=== PATIENT | male | born 1975 | race African-American/Black ===

== ENCOUNTER 2020-06-01 15:35 | Outpatient (REF) | payer OTHER, SELFPAY | END 2020-06-01 15:36 | disposition home or self-care (01) | LOC: HO.LAB 15:35 | PROVIDERS: Visit Provider Internal Medicine | DX: Z20.822 Contact with and (suspected) exposure to COVID-19 (principal) | CPT/HCPCS: 36415; C9803; U0003 ==

== ENCOUNTER 2021-11-23 15:36 | Outpatient (REF) | payer MEDICAID, SELFPAY ==
--- NOTE | ~2021-11-23 | XR_ITS ---
EXAMINATION: XR HAND, RIGHT CLINICAL INFORMATION: Pain. Trauma 2 weeks ago. COMPARISON: None TECHNIQUE: PA, lateral, and oblique views of the right hand. FINDINGS: Bone alignment is normal. No acute fracture or dislocation is seen. There is evidence of old trauma to the proximal phalanx of the second finger. Joint spaces are normal. Soft tissues are normal. XR/XR hand RT min 3V IMPRESSION: No acute fracture or dislocation. Old trauma to the proximal phalanx of the second finger.
== END 2021-11-23 15:37 | disposition home or self-care (01) ==
LOC: HO.XRAY 15:36
PROVIDERS: Visit Provider Dentist Pediatric Dentistry
DX: M79.641 Pain in right hand (principal)
CPT/HCPCS: 73130

== ENCOUNTER 2022-02-25 11:34 | Outpatient (REF) | payer MEDICAID, SELFPAY ==
[2022-03-01 14:49] LABS: H Pylori Breath Test Negative (Negative)
== END 2022-02-25 11:35 | disposition home or self-care (01) ==
LOC: HO.LNP 11:34
PROVIDERS: Visit Provider Nurse Practitioner Family
DX: K62.5 Hemorrhage of anus and rectum (principal)
CPT/HCPCS: 83013

== ENCOUNTER 2022-02-25 11:55 | Outpatient (REF) | payer MEDICAID, SELFPAY ==
[2022-02-25 13:00] LABS: Hematocrit 48.2 % (42.0-52.0); Hemoglobin 16.3 g/dl (14.0-18.0); Mean Corpuscular HGB Conc 33.8 g/dl (31.0-36.0); Mean Corpuscular Volume 91.8 fL (80.0-98.0); Mean Platelet Volume 11.5 fL (9.4-12.4); Platelet Count 222 X10*3/uL (160-400); Red Blood Count 5.25 X10*6/uL (4.60-5.80); White Blood Count 7.9 X10*3/uL (4.8-10.8)
[2022-02-25 13:25] LABS: Alanine Aminotransferase 13 U/L (0-40); Albumin Level 4.9 g/dL (3.5-5.0); Alkaline Phosphatase 60 U/L (39-117); Anion Gap 15 (12-20); Aspartate Amino Transferase 17 U/L (5-37); Bilirubin Total 0.7 mg/dL (0.0-1.0); Blood Urea Nitrogen 9 mg/dL (9-16); Calcium 10.2 mg/dL (8.4-10.2); Carbon Dioxide 27 mmol/L (22-29); Chloride 101 mmol/L (96-108); Estimated Glomerular Filt Rate > 60; Glucose Random 76 mg/dL (60-115); Lipase 31 U/L (8-78); Potassium 4.9 mmol/L (3.3-5.1); Sodium 138 mmol/L (135-145); Total Protein 7.8 g/dL (6.5-8.0)
[2022-02-25 13:34] LABS: TSH reflex Free T4 1.35 uIU/mL (0.32-4.0)
[2022-02-25 14:37] LABS: Folate 16.9 ng/mL (> or = 4.0); Vitamin B12 488 pg/mL (200-900)
== END 2022-02-25 11:56 | disposition home or self-care (01) ==
LOC: HO.LAB 11:55
PROVIDERS: PCP Family Medicine; Visit Provider Nurse Practitioner Family
DX: K21.9 Gastro-esophageal reflux disease without esophagitis (principal); R10.9 Unspecified abdominal pain; K59.01 Slow transit constipation; K64.9 Unspecified hemorrhoids; K58.2 Mixed irritable bowel syndrome; R10.84 Generalized abdominal pain
CPT/HCPCS: 36415; 80053; 82607; 82746; 83013; 83690; 84443; 85027; 99202

== ENCOUNTER → 2022-04-07 15:01 | Outpatient (BNVA) | payer MEDICAID, SELFPAY | PROVIDERS: PCP Family Medicine; Visit Provider Nurse Practitioner Family | DX: Z12.11 Encounter for screening for malignant neoplasm of colon (principal); K21.9 Gastro-esophageal reflux disease without esophagitis; K59.01 Slow transit constipation; K58.1 Irritable bowel syndrome with constipation; K64.9 Unspecified hemorrhoids; R10.10 Upper abdominal pain, unspecified | CPT/HCPCS: 99212 ==

== ENCOUNTER 2022-04-15 09:12 | Emergency (ER) | payer MEDICAID, SELFPAY ==
--- NOTE | ~2022-04-15 | CT_ITS ---
EXAMINATION: CT ABDOMEN AND PELVIS WITH CONTRAST CLINICAL INFORMATION: Nausea and lower abdominal pain COMPARISON: None TECHNIQUE: Multidetector volumetric images were obtained from the superior aspect of the liver through the pubic symphysis following administration 100 mL of Omnipaque 350 intravenous contrast. Sagittal and coronal reformatted images were obtained on the technologist's workstation. Oral contrast: No This CT examination was performed using dose optimization techniques as appropriate, variously including the following: *Automated exposure control *Adjustment of mA and/or kV according to patient size (this includes techniques or standardized protocols for targeted exams where dose is matched to indication/reason for exam; i.e. extremities or head) *Use of iterative reconstruction technique DLP: 449 mGy-cm FINDINGS: LUNG BASES: The visualized lung bases are unremarkable. LIVER, GALLBLADDER, AND BILIARY TREE: There is a tiny 7 mm cyst in the medial posterior right lobe of the liver near the gallbladder fossa which does not need to be followed. No suspicious hepatic masses are seen. There is no intrahepatic biliary dilatation. The gallbladder is unremarkable with no evidence of radiopaque gallstones, gallbladder wall thickening, or obvious pericholecystic inflammatory changes. PANCREAS: Unremarkable. SPLEEN: Unremarkable. ADRENAL GLANDS: There is slight thickening of the left adrenal. No focal mass. 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 BLADDER: Unremarkable. GASTROINTESTINAL TRACT: The small and large bowel are unremarkable. The appendix is unremarkable. ABDOMINAL WALL: No hernia. There appears to be metallic hardware in the left lateral pelvis extending into the left gluteal region, to the left iliac bone likely due to a prior traumatic event. LYMPH NODES: Normal. VASCULAR: Unremarkable. PELVIC VISCERA: Unremarkable. OSSEOUS STRUCTURES: There is a Schmorl's node seen at T11. No acute findings. CT/CT abdomen pelvis w IV con IMPRESSION: No acute findings. No evidence for diverticulitis.
[2022-04-15 09:28] VITALS: BMI 25.8
--- NOTE | 2022-04-15 09:30 | ED_ITS ---
HPI - GI Bleed General Chief complaint: GI Bleed Stated complaint: Blood in Stool Time Seen by Provider: 04/15/22 09:29 Source: patient Mode of arrival: ambulatory Limitations: no limitations History of Present Illness HPI Narrative: 47-year-old male with history of reflux, dyspepsia, external hemorrhoid and recent constipation, abdominal pain and blood in his stool for which he saw GI on April 07 presents to the ER for evaluation of blood in his stools x2 weeks.. Patient was seen in the GI office on April 07, tested for H pylori for postprandial abdominal pain. He was started on Prilosec, Colace and senna. Plans for upper endoscopy and colonoscopy but no date is set yet. Patient admits to not starting the medications as he has been having ongoing bleeding. He states he has been having bright red blood per rectum a few times per day. Today at work he had an episode and had associated lightheadedness and dizziness. He had to leave work. He also reports lower abdominal pain and fullness. He has been constipated needing to strain to have bowel movements and also reports his stools have been loose. He does know the color of the stools because the toilet bowl has been red with blood. complaint: gross hematochezia Onset (ago): week(s) Pain Consistency: intermittent Severity: moderate Relieving factors: none Exacerbating factors: none Context: history of GI bleed Associated symptoms: abdominal pain and nausea Treatments Prior to Arrival: none Related Data Previous Rx's Medication Instructions Recorded docusate sodium 100 mg capsule 100 mg PO BEDTIME #90 caps 02/25/22 hydrocortisone 2.5 % topical cream 1 appl IN BID-QID PRN hemorrhoids 02/25/22 with perineal applicator #30 grams (Proctosol HC) omeprazole 40 mg capsule,delayed 40 mg PO DAILY #90 caps 02/25/22 release sennosides 8.6 mg tablet (Natural 8.6 mg PO BEDTIME constipation #90 02/25/22 Senna Laxative) tabs bisacodyl 5 mg tablet,delayed 10 mg PO ONCE 1 day #2 tabs 04/07/22 release (Dulcolax (bisacodyl)) polyethylene glycol 3350 17 17 g PO DAILY #510 grams 04/07/22 gram/dose oral powder (Miralax) polyethylene glycol 3350 17 238 g PO ONCE #238 grams 04/07/22 gram/dose oral powder (Miralax) hydrocortisone 2.5 % topical cream 1 appl IN DAILY PRN hemorrhoids 04/15/22 with perineal applicator #30 grams (Proctosol HC) Allergies Allergy/AdvReac Type Severity Reaction Status Date / Time morphine [MORPHINE] Allergy Unknown UNKNO Verified 04/07/22 15:06 Review of Systems Review of Systems: Constitutional: No Fever, No Chills ENT/Mouth: No sore throat, No Rhinorrhea, No Swallowing Difficulty Cardiovascular: No Chest Pain, No SOB, No Orthopnea, No Edema Respiratory: No Cough, No Sputum, No Wheezing, No dyspnea Gastrointestinal: + Nausea, No Vomiting, No Diarrhea, + abdominal Pain, + Hematochezia, No Melena Genitourinary: No Dysuria, No Urinary Frequency, No Hematuria Musculoskeletal: No joint pain, No Myalgias Skin: No Skin Lesions, No rash Neuro: No Weakness, No Numbness, + Dizziness, No Headache Psych: No Anxiety/Panic, No Depression Heme/Lymph: No Bruising, No Lymphadenopathy Endocrine: No Polyuria, No Polydipsia PMFSH Past Medical History Surgical History Hx of abdominal surgery Family History Family History Maternal Grandmother Hx of breast cancer Mother HTN (hypertension) Social History Social History Household Members: Spouse Alcohol intake: current Alcohol intake frequency: holidays/special occasions only Patient Tobacco Use Status: Current everyday Tobacco user Smoked in Last 30 Days: Yes Use of substances other than those prescribed or required for medical reasons: Yes Substance Use Type: Marijuana Substance Use Frequency: Daily Last Used Substance: Just Prior to Admission Any prior treatment program specific to substance use: No Advance Directives: No Advance Directives Information Provided: No Physical Exam Vital Signs: Vital Signs: Last Vital Signs Temp 98.7 F 04/15/22 10:40 Pulse 70 04/15/22 10:40 Resp 16 04/15/22 10:40 BP 114/80 04/15/22 10:40 Pulse Ox 100 04/15/22 10:40 O2 Del Method 04/15/22 10:40 BMI result Body Mass Index 25.8 Appearance: Alert. Oriented X3. No acute distress. Eyes: Pupils equal, round and reactive to light. ENT: Pharynx normal. Neck: Normal inspection. Neck supple. CVS: Normal heart rate and rhythm. Pulses normal. Respiratory: No respiratory distress. Breath sounds normal. Abdomen: Soft with lower abdominal tenderness and guarding bilaterally. Normal +BS x4 JAMES: Nonbleeding external, nontender hemorrhoid. No stool in rectal vault, scant amount of light brown mucus Skin: Skin warm and dry. Normal skin color. Normal skin turgor. No rashes. Extremities: No lower extremity edema. Neuro: Oriented X 3. No motor deficit. No sensory deficit. Course Course Course Narrative: 47-year-old male presents to the ER for evaluation of rectal bleeding for the last 2 weeks. He experienced some lightheadedness today after his bloody BM. Exam is not consistent with any active bleeding. No stool in the rectal vault. Given his lower abdominal tenderness and discomfort will plan for CT scan to rule out diverticulitis and assess for diverticulosis which could be etiology of his bleeding. He also has known hemorrhoids, not currently actively bleeding. Will check CBC, coags. Dispo pending results. Reevaluation(s) Reevaluation #1: H&H decreased slightly from January, now 14.9/43.6 from 16.3/48.2. No active bleeding in the emergency department. CT scan of his abdomen pelvis is unremarkable. Case discussed with GI provider Maddi SMITH - recommending encouraging oral bowel regimen, starting Proctosol and outpatient upper and lower scopes will be scheduled for next week. Patient agrees with plan. Return precautions were discussed. Stable for DC. Medications Administered Discontinued Medications Generic Name Dose Route Start Last Admin Trade Name Freq PRN Reason Stop Dose Admin Iohexol 85 ml 04/15/22 11:24 04/15/22 11:25 Iohexol 350 Mg/Ml 100 Ml Infus..Btl IV 04/15/22 11:25 85 ml ONCE ONE Administration MDM - GI Bleed Lab Data Result diagrams: 04/15/22 10:20 04/15/22 10:20 Labs: Lab Results 04/15/22 04/15/22 04/15/22 Range/Units 10:20 10:20 10:20 WBC 6.9 (4.8-10.8) X10*3/uL RBC 4.79 (4.60-5.80) X10*6/uL Hgb 14.9 (14.0-18.0) g/dl Hct 43.6 (42.0-52.0) % MCV 91.0 (80.0-98.0) fL MCH 31.1 (27.0-33.0) pg MCHC 34.2 (31.0-36.0) g/dl RDW 12.1 (11.0-16.0) % Plt Count 190 (160-400) X10*3/uL MPV 11.1 (9.4-12.4) fL Immature Gran % (Auto) 0.4 (0.0-0.4) % Neut % (Auto) 63.0 (45-73) % Lymph % (Auto) 28.0 (20-40) % [place] % (Auto) 6.9 (2-11) % Eos % (Auto) 1.3 (0-4) % Baso % (Auto) 0.4 (0-2) % Lymph # (Auto) 1.9 (1.2-4.9) X10*3/uL [place] # (Auto) 0.5 (0.1-1.2) X10*3/uL Eos # (Auto) 0.1 (0.0-0.4) X10*3/uL Baso # (Auto) 0.0 (0.0-0.2) X10*3/uL Abs Immat Gran (auto) 0.03 (0.00-0.03) X10*3/uL Absolute Neuts (auto) 4.4 (2.0-8.3) x10*3/uL Absolute Nucleated RBC 0.000 (0.0-0.012) X10*3/uL Nucleated RBC % (auto) 0.0 (0.0-0.2) /100WBC PT 10.9 (10.0-13.1) SEC INR 1.0 (0.9-1.1) APTT 31.4 (26.0-36.4) SEC Sodium 140 (135-145) mmol/L Potassium 5.2 H (3.3-5.1) mmol/L Chloride 102 (96-108) mmol/L Carbon Dioxide 29 (22-29) mmol/L Anion Gap 14 (12-20) BUN 16 D (9-16) mg/dL Creatinine 0.89 (0.5-1.4) mg/dL Estim Creat Clear Calc 103.7 Estimated GFR > 60 Random Glucose 104 D (60-115) mg/dL Calcium 10.2 (8.4-10.2) mg/dL Magnesium 2.0 (1.6-2.6) mg/dL Total Bilirubin 0.4 (0.0-1.0) mg/dL Direct Bilirubin 0.2 (0.0-0.5) mg/dL AST 17 (5-37) U/L ALT 17 (0-40) U/L Alkaline Phosphatase 56 (39-117) U/L Total Protein 7.6 (6.5-8.0) g/dL Albumin 4.8 (3.5-5.0) g/dL Urine Color Urine Appearance Urine pH (5.0-9.0) Ur Specific [place] (1.005-1.025) Urine Protein (Neg-Trace) mg/dL Urine Glucose (UA) (Negative) mg/dL Urine Ketones (Negative) mg/dL Urine Blood (Negative) Urine Nitrite (Negative) Ur Leukocyte Esterase (Negative) Stool Occult Blood (NEGATIVE) 04/15/22 04/15/22 Range/Units 10:27 10:56 WBC (4.8-10.8) X10*3/uL RBC (4.60-5.80) X10*6/uL Hgb (14.0-18.0) g/dl Hct (42.0-52.0) % MCV (80.0-98.0) fL MCH (27.0-33.0) pg MCHC (31.0-36.0) g/dl RDW (11.0-16.0) % Plt Count (160-400) X10*3/uL MPV (9.4-12.4) fL Immature Gran % (Auto) (0.0-0.4) % Neut % (Auto) (45-73) % Lymph % (Auto) (20-40) % [place] % (Auto) (2-11) % Eos % (Auto) (0-4) % Baso % (Auto) (0-2) % Lymph # (Auto) (1.2-4.9) X10*3/uL [place] # (Auto) (0.1-1.2) X10*3/uL Eos # (Auto) (0.0-0.4) X10*3/uL Baso # (Auto) (0.0-0.2) X10*3/uL Abs Immat Gran (auto) (0.00-0.03) X10*3/uL Absolute Neuts (auto) (2.0-8.3) x10*3/uL Absolute Nucleated RBC (0.0-0.012) X10*3/uL Nucleated RBC % (auto) (0.0-0.2) /100WBC PT (10.0-13.1) SEC INR (0.9-1.1) APTT (26.0-36.4) SEC Sodium (135-145) mmol/L Potassium (3.3-5.1) mmol/L Chloride (96-108) mmol/L Carbon Dioxide (22-29) mmol/L Anion Gap (12-20) BUN (9-16) mg/dL Creatinine (0.5-1.4) mg/dL Estim Creat Clear Calc Estimated GFR Random Glucose (60-115) mg/dL Calcium (8.4-10.2) mg/dL Magnesium (1.6-2.6) mg/dL Total Bilirubin (0.0-1.0) mg/dL Direct Bilirubin (0.0-0.5) mg/dL AST (5-37) U/L ALT (0-40) U/L Alkaline Phosphatase (39-117) U/L Total Protein (6.5-8.0) g/dL Albumin (3.5-5.0) g/dL Urine Color Yellow Urine Appearance Clear Urine pH 8.5 (5.0-9.0) Ur Specific [place] 1.010 (1.005-1.025) Urine Protein Negative (Neg-Trace) mg/dL Urine Glucose (UA) Negative (Negative) mg/dL Urine Ketones Negative (Negative) mg/dL Urine Blood Negative (Negative) Urine Nitrite Negative (Negative) Ur Leukocyte Esterase Negative (Negative) Stool Occult Blood POSITIVE (NEGATIVE) Discharge Plan Discharge Clinical Impression: Hemorrhoids, Acute lower GI bleeding Patient Disposition: Home, Self-Care Instructions: Hemorrhoids (ED), Rectal Bleeding (ED) Additional Instructions: Your blood counts today not show any evidence of anemia. Your CT scan did not show any diverticulosis or diverticulitis. GI is recommending you take the previously prescribed senna and Colace. Use the newly prescribed medication for your hemorrhoids. GI is going to arrange for a EGD and colonoscopy, hopefully next week. Rest and drink plenty of fluids. If you develop new or worsening symptoms call 911 or come back to the ER for further evaluation. Prescriptions: New hydrocortisone [Proctosol HC] 2.5 % cream with perineal applicator 1 appl IN DAILY PRN (Reason: hemorrhoids) Qty: 30 0RF No Action bisacodyl [Dulcolax (bisacodyl)] 5 mg tablet,delayed release (DR/EC) 10 mg PO ONCE 1 Days Qty: 2 0RF Rx Instructions: take 2 tabs at noon the day before your colonoscopy polyethylene glycol 3350 [Miralax] 17 gram/dose powder 238 g PO ONCE Qty: 238 0RF Rx Instructions: As directed by gastroenterology department at [facility] polyethylene glycol 3350 [Miralax] 17 gram/dose powder 17 g PO DAILY Qty: 510 2RF docusate sodium 100 mg capsule 100 mg PO BEDTIME Qty: 90 3RF omeprazole 40 mg capsule,delayed release(DR/EC) 40 mg PO DAILY Qty: 90 3RF hydrocortisone [Proctosol HC] 2.5 % cream with perineal applicator 1 appl IN BID-QID PRN (Reason: hemorrhoids) Qty: 30 2RF sennosides [Natural Senna Laxative] 8.6 mg tablet 8.6 mg PO BEDTIME Qty: 90 3RF Referrals: [facility] [place] Gastroenterology Services [Provider Group] (Lower GI bleed) Stand Alone Forms: Work/School Release
[2022-04-15 10:24] LABS: MANUAL DIFF FLAG NO
[2022-04-15 10:26] LABS: Basophils Percent Auto 0.4 % (0-2); Eosinophils Absolute Auto 0.1 X10*3/uL (0.0-0.4); Eosinophils Percent Auto 1.3 % (0-4); Hematocrit 43.6 % (42.0-52.0); Hemoglobin 14.9 g/dl (14.0-18.0); Imm Gran Abs Auto 0.03 X10*3/uL (0.00-0.03); Imm Gran Pct Auto 0.4 % (0.0-0.4); Lymphocytes Absolute Auto 1.9 X10*3/uL (1.2-4.9); Mean Corpuscular HGB Conc 34.2 g/dl (31.0-36.0); Mean Corpuscular Hemoglobin 31.1 pg (27.0-33.0); Mean Platelet Volume 11.1 fL (9.4-12.4); Monocytes Absolute Auto 0.5 X10*3/uL (0.1-1.2); Monocytes Percent Auto 6.9 % (2-11); Neutrophils Absolute Auto 4.4 x10*3/uL (2.0-8.3); Platelet Count 190 X10*3/uL (160-400); Red Blood Count 4.79 X10*6/uL (4.60-5.80); Red Cell Distribution Width 12.1 % (11.0-16.0); White Blood Count 6.9 X10*3/uL (4.8-10.8)
[2022-04-15 10:32] LABS: Prothrombin Time 10.9 SEC (10.0-13.1)
[2022-04-15 10:34] LABS: Partial Thromboplastin Time 31.4 SEC (26.0-36.4)
[2022-04-15 10:38] LABS: OBS Int Ctl Valid YES; OBS1 POSITIVE (NEGATIVE)
[2022-04-15 10:40] VITALS: BP 114/80; PULSE 70; RESP 16; TEMP 37.1; O2SAT 100
[2022-04-15 10:48] LABS: Alanine Aminotransferase 17 U/L (0-40); Alkaline Phosphatase 56 U/L (39-117); Anion Gap 14 (12-20); Aspartate Amino Transferase 17 U/L (5-37); Bilirubin Direct 0.2 mg/dL (0.0-0.5); Bilirubin Total 0.4 mg/dL (0.0-1.0); Blood Urea Nitrogen 16 mg/dL (9-16); Calcium 10.2 mg/dL (8.4-10.2); Carbon Dioxide 29 mmol/L (22-29); Chloride 102 mmol/L (96-108); Creatinine Clr Calc Pharmacy 103.7; Estimated Glomerular Filt Rate > 60; Glucose Random 104 mg/dL (60-115); Potassium 5.2 mmol/L (3.3-5.1); Sodium 140 mmol/L (135-145); Total Protein 7.6 g/dL (6.5-8.0)
[2022-04-15 11:09] LABS: Appearance Urine Clear; Color Urine Yellow; Glucose Urine UA Negative (Negative); Leukocyte Esterase Urine Negative (Negative); Nitrite Urine Negative (Negative); PH 8.5 (5.0-9.0); Urine Blood Negative (Negative); Urine Ketones Negative (Negative); Urine Protein Negative (Neg-Trace)
[2022-04-15] MEDS: iohexoL 350 MG/ML 100 ML INFUS..BTL 85 ML IV (11:25)
[2022-04-15 11:27] LABS: Albumin Level 4.8 g/dL (3.5-5.0)
== END 2022-04-15 13:08 | disposition home or self-care (01) ==
PROVIDERS: Physician Assistant; Emergency Provider Emergency Medicine Emergency Medical Services
DX: K64.8 Other hemorrhoids (principal); R10.30 Lower abdominal pain, unspecified; F17.200 Nicotine dependence, unspecified, uncomplicated; Z71.6 Tobacco abuse counseling; Z79.899 Other long term (current) drug therapy
CPT/HCPCS: 36415; 74177; 80048; 80076; 81003; 82272; 83735; 85025; 85610; 85730; 99284; Q9967

== ENCOUNTER → 2022-05-20 08:00 | Day surgery (SDC) | payer MEDICAID, SELFPAY ==
[2022-05-20 08:14] VITALS: BMI 25.1
[2022-05-20 08:40] VITALS: BP 105/68; PULSE 71; RESP 20; TEMP 36.8; O2SAT 96
--- NOTE | 2022-05-20 08:41 | MHC.SHP ---
Pre-Procedural Eval Section A Date of Service: 05/20/22 The patient is an INPATIENT: No The History & Physical has been completed within 30 days and I have reviewed it.: No Section B Chief Complaint: screening, rectal bleeding, GERD Details of Present Illness: colon cancer screening, chronic constipation, rectal bleeding, GERD Relevant Family History (Specify if Yes): No Relevant Social History: Tobacco Use Present Medications: see Short Stay Collaborative assessment Medical History: Significant History (GERD, chronic constipation) History of Previous Operations: Relevant previous surgery/procedure and date(s) (Hx of abdominal surgery) Allergies: Allergies Allergy/AdvReac Type Severity Reaction Status Date / Time morphine [MORPHINE] Allergy Unknown UNKNO Verified 04/07/22 15:06 Plan Diagnosis/Plan: Change (procedure was cancelled since urine drug screen was positive for Cocaine.) I have reviewed the history and physical and performed a pertinent physical examination on my patient. No changes have occurred unless specified. Time Spent With Patient Time: Total time managing care of this patient today ____ minutes.
--- NOTE | 2022-05-20 08:43 | PM.OP ---
Brief Operative Note Date of Service: 05/20/22 Pre-op diagnosis: colon cancer screening, chronic constipation, rectal bleeding, GERD Surgeon: Rios Francisco MD Was an Electronics Warfare Technician used for this Procedure?: No
--- NOTE | 2022-05-20 08:43 | W.PM.OPN ---
Operative Note Operative Note Narrative: FLEXIBLE TRANSORAL UPPER GASTROINTESTINAL ENDOSCOPY WITH BIOPSIES AND COLONOSCOPY TILL CECUM WITH UPPER ENDOSCOPY Consent: Indications for the procedure and potential complications of bleeding, perforation, reaction to medications and missed diagnosis were discussed with the patient and informed consent was obtained. Instrument: Olympus GIF H 190 mid size upper endoscope Monitoring: Vital signs and clinical assessment, continuous EKG monitoring, Pulse oximetry, Carbon Dioxide monitoring and blood pressure monitoring were done throughout the procedure. Procedure: The patient was placed in the left lateral decubitis position and pre-procedure medications were administered and a bite block was placed. The endoscope was inserted into the mouth and advanced under direct vision to the third part of duodenum. A careful inspection was made as the upper endoscope was withdrawn including a retroflexed examination of the proximal stomach; Findings and interventions are described below. Findings: Larynx: Normal Esophagus: GE junction at []. No esophagitis or Sierra's. Stomach: Mild gastric erythema. Biopsies were obtained. Grade 2 flap valve on retroflexed examination of the cardia. Duodenum: Normal bulb and descending duodenum Intervention: Biopsies as noted above COLONOSCOPY PROCEDURE NOTE Consent: Indications for the procedure and potential complications of bleeding, perforation, reaction to medications and missed diagnosis were discussed with the patient and informed consent was obtained. Instrument: Olympus PCF H 190 L variable stiffness pediatric colonoscope Monitoring: Vital signs and clinical assessment, intermittent blood pressure monitoring, continuous EKG monitoring, Pulse oximetry and Carbon Dioxide monitoring were done throughout the procedure. Colon withdrawl time was [] minutes. Procedure: The patient was placed in the left lateral decubitis position and pre-procedure medications were administered. After a digital rectal examination of the ano-rectum, the video colonoscope was inserted into the rectum and advanced through the colon to the cecum. The colonoscope was slowly withdrawn in a retrograde panoramic fashion and the colon mucosa was carefully examined including a retroflexed view of the rectum. Findings and interventions are described below. Procedure Difficulty: : [Without difficulty] [LLQ pressure applied to intubate the transverse colon/cecum] Findings: Terminal Ileum: Not evaluated Cecum: Normal Ascending Colon: Normal Transverse Colon: Normal Descending Colon: Normal Sigmoid Colon: Moderate diverticulosis Rectum: Normal Ano-rectum: Moderate internal hemorrhoids Colon preparation: [Excellent] [Good] [Fair] [poor] Impression and Post Procedure Diagnosis: Endoscopy Findings: LARYNX: [] ESOPHAGUS: [] STOMACH: [] DUODENUM: [] Colonoscopy Findings: [] polyps removed Moderate diverticulosis seen in the []colon Moderate hemorrhoids on retroflexed exam. Plan: Await pathology results Patient has an appointment on 06/03/22 in the GI Clinic with Barb Jiang FNP-BC. Repeat Colonoscopy interval based on path results - in 3-5 years if polyps are adenomatous and 10 years if polyps are hyperplastic. Above findings were reviewed with the patient and [colon polyps] and [diverticulosis] handouts were given in the discharge area
[2022-05-20] MEDS: Lactated Ringers 1,000 ML 100 ML IVCONT (08:44)
[2022-05-20 09:02] LABS: Anion Gap 13 (12-20); Carbon Dioxide 25 mmol/L (22-29); Chloride 106 mmol/L (96-108); Potassium 4.6 mmol/L (3.3-5.1); Sodium 139 mmol/L (135-145)
[2022-05-20 10:02] LABS: Amphetamine Screen Urine Not Detected (Not Detect); Barbiturates, Urine Not Detected (Not Detect); Benzodiazepines Screen Urine Not Detected (Not Detect); Cannabinoid Screen Urine POSITIVE (Not Detect); Cocaine Screen Urine POSITIVE (Not Detect); Fentanyl, urine Not Detected (Not Detect); Opiate Screen Urine Not Detected (Not Detect); Phencyclidine Screen Urine Not Detected (Not Detect)
--- NOTE | 2022-05-20 10:19 | PC.NURSE ---
patient case canceled as discussed with md. Washburn and team see utox
== END ==
PROVIDERS: Anesthesiology; Visit Provider Internal Medicine Gastroenterology
DX: K62.5 Hemorrhage of anus and rectum (principal); Z53.8 Procedure and treatment not carried out for other reasons; R82.5 Elevated urine levels of drugs, medicaments and biological substances; K21.9 Gastro-esophageal reflux disease without esophagitis; Z88.0 Allergy status to penicillin
CPT/HCPCS: 36415; 80051; 80307

== ENCOUNTER 2022-08-01 10:57 | Day surgery (SDC) | payer MEDICAID, SELFPAY ==
[2022-07-27 19:46] VITALS: BMI 26.6
--- NOTE | 2022-08-01 12:03 | MHC.SHP ---
Pre-Procedural Eval Section A Date of Service: 08/01/22 The patient is an INPATIENT: No The History & Physical has been completed within 30 days and I have reviewed it.: No Section B Chief Complaint: Other fecal abnormalities,constipation,reflux dise Details of Present Illness: colon cancer screening, chronic constipation, rectal bleeding, GERD Relevant Family History (Specify if Yes): Yes Relevant Social History: None Present Medications: see Short Stay Collaborative assessment Medical History: Significant History (GERD, back pain) History of Previous Operations: Relevant previous surgery/procedure and date(s) (hx of abdominal surgery) Allergies: Allergies Allergy/AdvReac Type Severity Reaction Status Date / Time morphine [MORPHINE] Allergy Unknown UNKNO Verified 04/07/22 15:06 Review of Systems Sugical H&P ROS: Negative: Constitution, Cardiovascular, Respiratory and Gastrointestinal Exam Surgical H&P Exam: Normal: Heart, Normal: Lungs, Normal: Extremities and Normal: Abdomen Plan Diagnosis/Plan: Unchanged I have reviewed the history and physical and performed a pertinent physical examination on my patient. No changes have occurred unless specified. Time Spent With Patient Time: Total time managing care of this patient today ____ minutes.
--- NOTE | 2022-08-01 12:04 | P.BOP_ITS ---
Brief Operative Note Date of Service: 08/01/22 Pre-op diagnosis: colon cancer screening, chronic constipation, rectal bleeding, GERD Post-op diagnosis: other (GERD, hiatal hernia, gastritis, duodenal ulcers, colon polyps, diverticulosis, hemorrhoids) Procedure: FLEXIBLE TRANSORAL UPPER GASTROINTESTINAL ENDOSCOPY WITH BIOPSIES AND COLONOSCOPY TILL CECUM WITH BIOPSIES Surgeon: Rios Francisco MD Anesthesia: MAC Was an Nurse Consultant used for this Procedure?: Yes Nurse Consultant: Won Rizo Estimated blood loss (mL): 1 Pathology: other (A) BX Gastric Antrum (R/O H.Pylori) B) Duodenal Ulcer C) Polyp Sigmoid Colon) Condition: stable Disposition: PACU
--- NOTE | 2022-08-01 12:05 | P.OP_ITS ---
Operative Note Operative Note Date of Service: 08/01/22 Narrative: FLEXIBLE TRANSORAL UPPER GASTROINTESTINAL ENDOSCOPY WITH BIOPSIES AND COLONOSCOPY TILL CECUM WITH BIOPSIES UPPER ENDOSCOPY Consent: Indications for the procedure and potential complications of bleeding, perforation, reaction to medications and missed diagnosis were discussed with the patient and informed consent was obtained. Instrument: Olympus GIF H 190 mid size upper endoscope Monitoring: Vital signs and clinical assessment, continuous EKG monitoring, Pulse oximetry, Carbon Dioxide monitoring and blood pressure monitoring were done throughout the procedure. Procedure: The patient was placed in the left lateral decubitis position and pre-procedure medications were administered and a bite block was placed. The endoscope was inserted into the mouth and advanced under direct vision to the third part of duodenum. A careful inspection was made as the upper endoscope was withdrawn including a retroflexed examination of the proximal stomach; Findings and interventions are described below. Findings: Larynx: Normal Esophagus: GE junction at 36 cms, hiatal hernia 36 to 40 cms. No esophagitis or Sierra's. Stomach: Moderate diffuse gastric erythema with a few superficial antral erosions. Biopsies were obtained. Grade 2 flap valve on retroflexed examination of the cardia. Duodenum: A few 8 to 10 mm superficial ulcers in the bulb - biopsied. Normal bulb descending duodenum Intervention: Biopsies as noted above COLONOSCOPY PROCEDURE NOTE Consent: Indications for the procedure and potential complications of bleeding, perforation, reaction to medications and missed diagnosis were discussed with the patient and informed consent was obtained. Instrument: Olympus PCF H 190 L variable stiffness pediatric colonoscope Monitoring: Vital signs and clinical assessment, intermittent blood pressure monitoring, continuous EKG monitoring, Pulse oximetry and Carbon Dioxide monitoring were done throughout the procedure. Colon withdrawl time was 18 minutes. Procedure: The patient was placed in the left lateral decubitis position and pre-procedure medications were administered. After a digital rectal examination of the ano-rectum, the video colonoscope was inserted into the rectum and advanced through the colon to the cecum. The colonoscope was slowly withdrawn in a retrograde panoramic fashion and the colon mucosa was carefully examined including a retroflexed view of the rectum. Findings and interventions are described below. Procedure Difficulty: : Without difficulty Findings: Terminal Ileum: Not evaluated Cecum: Normal Ascending Colon: Normal Transverse Colon: Normal Descending Colon: Normal Sigmoid Colon: A few 2-4 mm diminutive appearing polyps in the rectosigmoid - 1 removed with cold biopsy. Moderate diverticulosis Rectum: Normal Ano-rectum: Moderate internal hemorrhoids - likely source of rectal bleeding Colon preparation: Excellent Fair Impression and Post Procedure Diagnosis: Endoscopy Findings: ESOPHAGUS: Hiatal hernia STOMACH: Moderate diffuse gastric erythema with a few superficial antral erosions. Biopsies were obtained. DUODENUM: A few 8 to 10 mm superficial ulcers in the bulb - biopsied. Colonoscopy Findings: One small polyp removed Moderate diverticulosis seen in the sigmoid colon Moderate hemorrhoids on retroflexed exam - likely source of rectal bleeding. Plan: Await pathology results Patient to schedule a FU appointment in the GI Clinic with Barb Jiang FNP- [facility]. Repeat Colonoscopy interval based on path results - in 5 years if polyps are adenomatous and 10 years if polyps are hyperplastic. Above findings were reviewed with the patient and colon polyps and diverticulosis handouts were given in the discharge area
--- NOTE | 2022-08-01 12:32 | P.CONAN_ITS ---
[facility] Past Medical History Medical History Back pain GERD (gastroesophageal reflux disease) GI bleed Family History Family History Maternal Grandmother Hx of breast cancer Mother HTN (hypertension) Family history of problems with anesthesia: No Surgical History Surgical History Hx of abdominal surgery Hx of colonoscopy History of Problems with Anesthesia: No Social History Social History Household Members: Spouse Alcohol intake: current Alcohol intake frequency: holidays/special occasions only Patient Tobacco Use Status: Current someday Tobacco user Tobacco use type: Cigarette Cigarettes Per Day: 3 Use of substances other than those prescribed or required for medical reasons: No Substance Use Type: Marijuana Have you been hit, kicked, punched, or otherwise hurt by someone within the past year? If so, by whom?: No Are you DNR?: No Advance Directives: No Advance Directives Information Provided: Yes Advance Directives on File: No Recently lost weight without trying: No Nutrition Risks: No Nutritional Risk Meds Allergies Allergy/AdvReac Type Severity Reaction Status Date / Time morphine [MORPHINE] Allergy Unknown UNKNO Verified 04/07/22 15:06 Exam Exam Date and Time: August 01, 2022 1232 Height,Weight and Vital Signs: Height 5 ft 9 in Weight 81.647 kg Airway Mallampati Class: II TM Dist: >3cm Neck ROM: Full Heart: rrr Lungs: cta Assessment and Plan Assessment Anesthesia Assessment: Anesthesia Plan Discussed and Chart Reviewed Final Anesthetic Review Family History of Problems with Anesthesia: No History of Problems with Anesthesia: No NPO: Yes ASA Class: II Final Preanesthetic Review: No Changes in Pt Med Stat, Meds/Allgs Chart Reviewed and Consent Obtained/Reviewed Patient Risk: Intermediate Procedure Risk: Intermediate Anesthetic Plan Anesthetic Plan: MAC: Disposition: Standard PACU
[2022-08-01 12:48] VITALS: BP 109/67; PULSE 73; RESP 16; TEMP 36.8; O2SAT 98
[2022-08-01 12:59] LABS: Amphetamine Screen Urine Not Detected (Not Detect); Barbiturates, Urine Not Detected (Not Detect); Benzodiazepines Screen Urine Not Detected (Not Detect); Cannabinoid Screen Urine POSITIVE (Not Detect); Cocaine Screen Urine Not Detected (Not Detect); Fentanyl, urine Not Detected (Not Detect); Opiate Screen Urine Not Detected (Not Detect); Phencyclidine Screen Urine Not Detected (Not Detect)
[2022-08-01 14:45] VITALS: BP 98/62; PULSE 82; RESP 16; TEMP 36.6; O2SAT 94
[2022-08-01 15:04] VITALS: BP 111/64; PULSE 84; RESP 18; TEMP 36.6; O2SAT 97
== END 2022-08-01 15:35 | disposition home or self-care (01) ==
PROVIDERS: Visit Provider Internal Medicine Gastroenterology
PROC: (CPT 45380; principal; 2022-08-01 12:50)
DX: R19.5 Other fecal abnormalities (principal); K63.5 Polyp of colon; K57.30 Diverticulosis of large intestine without perforation or abscess without bleeding; K64.8 Other hemorrhoids; K59.09 Other constipation; K21.9 Gastro-esophageal reflux disease without esophagitis; K29.50 Unspecified chronic gastritis without bleeding; K26.9 Duodenal ulcer, unspecified as acute or chronic, without hemorrhage or perforation; K44.9 Diaphragmatic hernia without obstruction or gangrene; Z79.899 Other long term (current) drug therapy; Z88.8 Allergy status to other drugs, medicaments and biological substances; F17.210 Nicotine dependence, cigarettes, uncomplicated
CPT/HCPCS: 45380; 43239; 80307; 88305; 88342; J2250

== ENCOUNTER → 2022-09-02 15:12 | Outpatient (BNVA) | payer MEDICAID, SELFPAY | PROVIDERS: Visit Provider Nurse Practitioner Family | DX: K21.9 Gastro-esophageal reflux disease without esophagitis (principal); K29.81 Duodenitis with bleeding; K57.30 Diverticulosis of large intestine without perforation or abscess without bleeding; K64.8 Other hemorrhoids; Z79.899 Other long term (current) drug therapy; Z98.890 Other specified postprocedural states | CPT/HCPCS: 99212 ==

== ENCOUNTER 2022-09-21 12:50 | Outpatient (REF) | payer MEDICAID, SELFPAY ==
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
== END 2022-09-21 12:51 | disposition home or self-care (01) ==
LOC: HO.XRAY 12:50
PROVIDERS: PCP Student in an Organized Health Care Education/Training Program; Visit Provider Student in an Organized Health Care Education/Training Program
DX: M79.604 Pain in right leg (principal); M79.641 Pain in right hand
CPT/HCPCS: 73130; 73552

== ENCOUNTER 2022-10-15 21:54 | Emergency (ER) | payer MEDICAID, SELFPAY ==
[2022-10-15 22:03] VITALS: BP 125/84; PULSE 85; RESP 18; TEMP 36.6; O2SAT 97; BMI 25.1
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
== END 2022-10-15 22:45 | disposition home or self-care (01) ==
PROVIDERS: Emergency Provider Emergency Medicine
DX: Z04.1 Encounter for examination and observation following transport accident (principal); M79.18 Myalgia, other site; M54.50 Low back pain, unspecified; F17.210 Nicotine dependence, cigarettes, uncomplicated; F12.90 Cannabis use, unspecified, uncomplicated
CPT/HCPCS: 99283; 99284

== ENCOUNTER 2022-11-16 09:46 | Outpatient (REF) | payer MEDICAID, SELFPAY ==
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
== END 2022-11-16 09:47 | disposition home or self-care (01) ==
LOC: HO.HHCX 09:46
PROVIDERS: Visit Provider Registered Nurse
DX: M54.2 Cervicalgia (principal); M54.6 Pain in thoracic spine; M54.50 Low back pain, unspecified
CPT/HCPCS: 72050; 72070; 72100

== ENCOUNTER 2022-12-09 15:35 | Outpatient (AMB) | payer MEDICAID, SELFPAY ==
[2022-12-09 15:52] VITALS: BP 116/74; PULSE 97; BMI 25.2
--- NOTE | 2022-12-09 15:52 | MHC.OFFVIS ---
Intake Vital Signs 12/09/22 15:52 Height 5 ft 9 in Weight 170 lb 5.958 oz BMI 25.2 BP 116/74 Blood Pressure Location Lt brachial Position Sitting Pulse 97 Intake Visit Reasons: 3 month follow up Intake Note: Tal presents in office as a est.patient for 3month f/u for divert. PT CC: pt reports having constipation pt denies any other GI Issues Cra Officer Required: No Accompanied by: Spouse Allergies morphine [MORPHINE] Allergy (Unknown, Verified 12/09/22 15:53) UNKNO HPI 3 month follow up HPI Details LAST VISIT GERD without esophagitis Patient reports occasional acid reflux without dyspepsia, dysphagia or odynophagia. Will start patient on pantoprazole. Discussed with patient avoiding dietary triggers and late night snacking. Staying upright for minimum 3 hours after meals discussed with patient. Multiple duodenal ulcers Discussed with patient the importance of avoiding NSAIDs and dietary triggers. Will start patient on sucralfate. We will repeat upper endoscopy in the near future to re-evaluate. Diverticulosis Moderate diverticulosis found in sigmoid colon. Patient was encouraged to increase fiber in his diet. High-fiber diet information and list of food given to patient. Hemorrhoids, internal, with bleeding Moderate internal hemorrhoids, most likely source of bleeding for patient. Patient was encouraged to drink plenty fluids avoid straining, continue taking Colace. Patient will call if he will need script for Proctosol Status post colonoscopy Patient denies any ill effects from the prep, anesthesia or procedure itself. Patient reports that he has been feeling better. Hyperplastic polyp found. Patient next colonoscopy screening will be in 10 years sooner if clinically necessary. I will see patient in 3 months, sooner on as needed basis. Patient is agreeable to this plan and verbalizes understanding of instructions. He was given the opportunity to ask questions and all questions answered. ? Thank you for allowing me to participate in his care Plan Medications New sucralfate 1 g PO BEDTIME 90 tabs 1RF K21.9, K29.81 pantoprazole take one tablet half an hour before breakfast 40 mg PO DAILY 90 tabs 2RF K21.9 TODAY'S VISIT Patient is here today for follow-up. Patient reports that since last time I have seen him he has been doing better. Takes pantoprazole in the morning and sucralfate at bedtime. Symptoms of acid reflux are suppressed. Denies any dyspepsia, dysphagia or odynophagia. Patient does report however that he is constipated. He is taking sucralfate that can constipated at times. Patient should drink more water. Eat more fruits and vegetables. Patient denies any melena, hematochezia, unintentional weight loss or ribbon like stools. Patient reports that over the weekend he was incarcerated and had cuffs on his bilateral lower extremities. Patient states that they were too tight and now he has pain. Patient was encouraged to follow-up with urgent care for x-rays [facility] Medical History (Updated 01/04/23 @ 17:56 by Iman Sherman MD) Back pain Ganglion cyst GERD (gastroesophageal reflux disease) GI bleed Surgical History Hx of abdominal surgery Hx of colonoscopy Family History Maternal Grandmother Hx of breast cancer Mother HTN (hypertension) Social History (Updated 01/04/23 @ 11:32 by Lisa Ruff CMA) Household Members: Spouse Alcohol intake: current Alcohol intake frequency: holidays/special occasions only Patient Tobacco Use Status: Current someday Tobacco user Tobacco use type: Cigarette Cigarettes Per Day: 1 Years Smoked: 3 Substance Use Type: Marijuana Current occupational status: unemployed Review of Systems Const Denies weight gain and Denies weight loss ENT Reports no additional complaints, Denies dysphagia and Denies odynophagia Card Reports no additional complaints Resp Reports no additional complaints GI Denies abdominal pain, Denies belching, Denies melena, Denies bloating, Denies change in bowel habits, Reports constipation, Denies dysphagia, Denies excessive flatus, Denies dyspepsia, Denies heartburn, Denies diarrhea, Denies loose stools, Denies nausea, Denies odynophagia and Denies vomiting Reports no additional complaints Musc Reports no additional complaints Neuro Reports no additional complaints Psych Reports no additional complaints Endo Reports no additional complaints Physical Exam Vital Signs: Last Vital Signs Pulse 97 12/09/22 15:52 BP 116/74 12/09/22 15:52 BMI result Body Mass Index 25.2 Const General: healthy appearing, no acute distress and well developed Nutritional Appearance: well nourished Orientation/consciousness: patient oriented x3 HEENT Head: Yes normal to inspection, Yes normocephalic and Yes atraumatic Face and sinus: Yes normal facial exam Mouth: Normal oral and palatal mucosa present Throat: Yes posterior oropharynx normal, Yes tonsils normal and Yes uvula midline Eyes General: appearance normal, both eyes and all related structures Neck Neck: Yes normal visual inspection, Yes full ROM and Yes trachea midline Thyroid: Thyroid normal Resp Effort & Inspection: normal respiratory effort, able to speak in complete sentences, no tracheal deviation and symmetric chest movement Auscultation: clear to auscultation bilaterally Cardio Jugular venous distension: no JVD Rate: regular rate Heart sounds: S1 normal heart sound present, S2 normal heart sound present, no gallops and no murmurs GI Inspection: Yes normal to inspection and No distended Palpation (GI): Soft to palpation, not firm, nontender and No hepatosplenomegaly present Auscultation: normal bowel sounds General: Yes no CVA tenderness Back/Spine/Pelvis Back: no CVA tenderness Skin General skin exam: elasticity normal, turgor normal and dry skin Neuro General: patient oriented x3 Psych Appearance: grossly normal Mental Status: mental status grossly normal Speech and movement: Normal speech and movement present Affect: normal affect Attitude: cooperative Thought process: Normal thought process present Thought content: Normal thought content present Insight: Good insight present (Psych) Judgement: Good judgement present (Psych) Assessment & Plan Assessment & Plan (1) GERD without esophagitis: Code(s): K21.9 - Gastro-esophageal reflux disease without esophagitis Plan: Continue current regimen with pantoprazole and sucralfate. Patient was encouraged to try to stop the sucralfate at night time and see if he will have symptoms. If no symptoms patient can stop taking it. Patient was also encouraged to avoid dietary triggers in late night snacking. Staying upright for minimum 3 hours after meals discussed with patient (2) Chronic idiopathic constipation: Code(s): K59.04 - Chronic idiopathic constipation Plan: Patient reports constipation. Not taking any medications. Patient was encouraged to start taking MiraLax daily. Increase fluid intake and activity to promote better bowel motility. I will see him in 6 months, sooner on as needed basis. Patient is agreeable to this plan and verbalizes understanding of instructions. He was given the opportunity to ask questions and all questions answered. Thank you for allowing me to participate in his care Medications: New polyethylene glycol 3350 (Miralax) 17 grams PO DAILY 510 grams 2RF Coding Level of Care Code Est Pt Level 3 (06939) Diagnoses GERD without esophagitis K21.9 Chronic idiopathic constipation K59.04 Time Spent (min) 30 Comment 20 minutes spent with patient and additional 10 minutes spent reviewing his records
== END 2022-12-09 16:39 | disposition home or self-care (01) ==
PROVIDERS: Visit Provider Nurse Practitioner Family
DX: K21.9 Gastro-esophageal reflux disease without esophagitis (principal); K59.04 Chronic idiopathic constipation
CPT/HCPCS: 99213

== ENCOUNTER → 2022-12-09 15:35 | Outpatient (BNVA) | payer MEDICAID, SELFPAY | PROVIDERS: Visit Provider Nurse Practitioner Family | DX: K21.9 Gastro-esophageal reflux disease without esophagitis (principal); K59.04 Chronic idiopathic constipation | CPT/HCPCS: 99213 ==

== ENCOUNTER → 2023-01-04 11:10 | Outpatient (BNVA) | payer MEDICAID, SELFPAY | PROVIDERS: Visit Provider Physical Medicine & Rehabilitation ==

== ENCOUNTER 2023-03-17 14:52 | Outpatient (REF) | payer MEDICAID, SELFPAY ==
--- NOTE | 2023-03-17 14:57 | EMG_ITS ---
Chief complaint: Right radial wrist pain Noted enlarged ganglion cyst. Reason for referral: Evaluate for Carpal Tunnel Syndrome Procedure done: Right upper extremity NCS/EMG Precautions and/or limitations: None The limb temperature was monitored continuously and remained between 32-36 degrees C during the performance of the NCS. Nerve Conduction Studies Anti Sensory Summary Table ?Stim Site NR Onset (ms) Norm Onset (ms) Peak (ms) Norm Peak (ms) O-P Amp (?V) Norm O-P Amp Site1 Site2 Delta-0 (ms) Dist (cm) Tanvir (m/s) Norm Tanvir (m/s) Right Median Anti Sensory (2nd Digit) Wrist ? 2.8 3.5 <3.6 19.4 >10 Wrist 2nd Digit 2.8 14.0 50 Right Ulnar Anti Sensory (5th Digit) Wrist ? 2.2 3.3 <3.7 19.0 >15.0 Wrist 5th Digit 2.2 14.0 64 Motor Summary Table ?Stim Site NR Onset (ms) Norm Onset (ms) O-P Amp (mV) Norm O-P Amp iAmp (mV) Amp (1st) (%) Site1 Site2 Delta-0 (ms) Dist (cm) Tanvir (m/s) Norm Tanvir (m/s) Right Median Motor (Abd Poll Brev) Wrist ? 3.9 <3.9 11.6 >4.5 13.5 100.0 Elbow Wrist 3.9 21.0 54 >45 Elbow ? 7.8 11.2 13.4 96.6 Right Ulnar Motor (Abd Dig Minimi) Wrist ? 2.7 <3.0 9.0 >5 11.4 100.0 B Elbow Wrist 3.1 20.0 65 >45 B Elbow ? 5.8 9.1 11.8 101.1 A Elbow B Elbow 1.2 10.0 83 >45 A Elbow ? 7.0 8.7 11.4 96.7 Comparison Summary Table ?Stim Site NR Peak (ms) Norm Peak (ms) P-T Amp (?V) Site1 Site2 Delta-P (ms) Norm Delta (ms) Right Median/Radial Dig I Comparison (Digit 1 - 10cm) Median ? 3.2 <2.9 31.6 Median Radial 0.4 Radial ? 3.6 <2.8 12.5 EMG ?Side Muscle Nerve Root Ins Act Fibs Psw Amp Dur Poly Recrt Int Pat Comment Right 1stDorInt Ulnar C8-T1 Nml Nml Nml Nml Nml 0 Nml Complete Right FlexCarRad Median C6-7 Nml Nml Nml Nml Nml 0 Nml Complete Right Biceps Musculocut C5-6 Nml Nml Nml Nml Nml 0 Nml Complete Right Triceps Radial C6-7-8 Nml Nml Nml Nml Nml 0 Nml Complete Right Deltoid Axillary C5-6 Nml Nml Nml Nml Nml 0 Nml Complete FINDINGS: All motor and sensory nerves tested showed normal latencies, amplitudes and conduction velocities. Concentric needle EMG was performed in selected muscles of the right upper extremity. Study did not reveal signs of electric abnormalities as shown in the table below. IMPRESSION: 1. This is a normal study. 2. There is no electrodiagnostic evidence for median neuropathy, ulnar neuropathy, brachial plexopathy, or cervical radiculopathy. Thank you for your kind referral. Iman Sherman MD, BETHANY Board Certified, [place] [employer] and [employer] (ABPMR) Board Certified, [place] Board [employer] Electro[employer] (ABEM) CODIN [id number] MTDD
== END 2023-03-17 14:53 | disposition home or self-care (01) ==
LOC: HO.NEURO 14:52
PROVIDERS: Visit Provider Physical Medicine & Rehabilitation
DX: G56.01 Carpal tunnel syndrome, right upper limb (principal)
CPT/HCPCS: 95886; 95909

== ENCOUNTER → 2023-03-17 14:57 | Outpatient (BNV) | payer MEDICAID, SELFPAY | PROVIDERS: Visit Provider Physical Medicine & Rehabilitation | DX: M25.531 Pain in right wrist (principal) | CPT/HCPCS: 95886; 95909 ==

== ENCOUNTER 2023-03-22 16:11 | Emergency (ER) | payer MEDICAID, SELFPAY ==
--- NOTE | ~2023-03-22 | XR_ITS ---
EXAMINATION: XR SHOULDER, LEFT CLINICAL INFORMATION: Left shoulder pain. COMPARISON: None available. TECHNIQUE: AP external rotation, Grashey, scapular Y views of the left shoulder. FINDINGS: The bones and soft tissues are normal. No fracture. Glenohumeral and acromioclavicular alignment is anatomic with normal joint space. No abnormal soft tissue calcifications. XR/XR shoulder LT min 2V IMPRESSION: Unremarkable plain radiographs of the left shoulder.
--- NOTE | 2023-03-22 16:24 | ECG_ITS ---
Test Reason : ARM PAIN Blood Pressure : / mmHG Vent. Rate : 071 BPM Atrial Rate : 071 BPM P-R Int : 168 ms QRS Dur : 086 ms QT Int : 358 ms P-R-T Axes : 061 048 059 degrees QTc Int : 389 ms Normal sinus rhythm Minimal voltage criteria for LVH, may be normal variant ( Sokolow-Higginbotham ) Borderline ECG No previous ECGs available Referred By: Generic ED Physician Electronically Signed By:JOHNSON OTERO MD
[2023-03-22 16:50] VITALS: BP 113/57; PULSE 74; RESP 18; TEMP 36.1; O2SAT 96; BMI 24.9
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
[2023-03-22 17:00] LABS: MANUAL DIFF FLAG NO
[2023-03-22 17:02] LABS: Basophils Percent Auto 0.3 % (0-2); Eosinophils Absolute Auto 0.1 X10*3/uL (0.0-0.4); Hematocrit 44.5 % (42.0-52.0); Hemoglobin 15.3 g/dl (14.0-18.0); Imm Gran Abs Auto 0.05 X10*3/uL (0.00-0.03); Imm Gran Pct Auto 0.4 % (0.0-0.4); Lymphocytes Absolute Auto 2.5 X10*3/uL (1.2-4.9); Lymphocytes Percent Auto 21.7 % (20-40); Mean Corpuscular HGB Conc 34.4 g/dl (31.0-36.0); Mean Corpuscular Hemoglobin 31.2 pg (27.0-33.0); Mean Corpuscular Volume 90.6 fL (80.0-98.0); Mean Platelet Volume 11.2 fL (9.4-12.4); Monocytes Absolute Auto 0.7 X10*3/uL (0.1-1.2); Monocytes Percent Auto 6.4 % (2-11); Neutrophils Absolute Auto 8.1 x10*3/uL (2.0-8.3); Neutrophils Percent Auto 70.2 % (45-73); Platelet Count 214 X10*3/uL (160-400); Red Blood Count 4.91 X10*6/uL (4.60-5.80); Red Cell Distribution Width 12.3 % (11.0-16.0); White Blood Count 11.5 X10*3/uL (4.8-10.8)
[2023-03-22 17:08] LABS: INTERNATIONAL NORM RATIO 0.9 (0.9-1.1); Prothrombin Time 11.2 SEC (11.1-13.3)
[2023-03-22 17:11] LABS: Partial Thromboplastin Time 30.1 SEC (26.0-36.4)
[2023-03-22 17:16] LABS: Alanine Aminotransferase 15 U/L (0-40); Albumin Level 4.6 g/dL (3.5-5.0); Alkaline Phosphatase 59 U/L (39-117); Anion Gap 14 (12-20); Aspartate Amino Transferase 16 U/L (5-37); Bilirubin Total 0.4 mg/dL (0.0-1.0); Blood Urea Nitrogen 11 mg/dL (9-16); Calcium 9.9 mg/dL (8.4-10.2); Carbon Dioxide 25 mmol/L (22-29); Chloride 103 mmol/L (96-108); Creatinine Clr Calc Pharmacy 112.7; Estimated Glomerular Filt Rate > 60; Glucose Random 77 mg/dL (60-115); Potassium 4.3 mmol/L (3.3-5.1); Sodium 138 mmol/L (135-145); Total Protein 7.5 g/dL (6.5-8.0)
[2023-03-22 17:29] LABS: Troponin-I High Sensitivity < 2.7 ng/L (<3.5-35.0)
[2023-03-22 19:24] VITALS: BP 119/73; PULSE 73; RESP 18; O2SAT 100
--- NOTE | 2023-03-22 22:33 | PC.NURSE ---
Dr. Quintanilla at bedside speaking with/evaluating patient. Pt's family member at bedside as well.
[2023-03-22] MEDS: Cyclobenzaprine HCl 5 MG TABLET PO (23:17)
[2023-03-22] MEDS: Lidocaine 4 % Patch ADH..PATCH 1 PATCH TRANSDERMA (23:17)
[2023-03-22] MEDS: Ketorolac Tromethamine 15 MG/ML VIAL IM (23:17)
[2023-03-22] MEDS: Acetaminophen 325 MG TABLET 975 MG PO (23:17)
--- NOTE | 2023-03-22 23:17 | PC.NURSE ---
Patient medicated per MD orders. Unable to scan medications due to system downtime. Override of medications needed from [facility], also due to system downtime. Kimberlyn Rodriguez, CHOCO aware of computer issues. Pt medicated to left deltoid with Tordal 15mg IM. Discharge home per Dr. Quintanilla
== END 2023-03-22 23:42 | disposition home or self-care (01) ==
PROVIDERS: Physician Assistant; Emergency Provider Student in an Organized Health Care Education/Training Program; PCP Student in an Organized Health Care Education/Training Program
DX: M25.512 Pain in left shoulder (principal); M62.838 Other muscle spasm; F17.210 Nicotine dependence, cigarettes, uncomplicated; F12.90 Cannabis use, unspecified, uncomplicated; Z79.899 Other long term (current) drug therapy
CPT/HCPCS: 36415; 73030; 80053; 84484; 85025; 85610; 85730; 93005; 96372; 99283; 99284; J1885

== ENCOUNTER 2023-05-02 13:42 | Outpatient (AMB) | payer MEDICAID, SELFPAY ==
--- NOTE | 2023-05-02 13:45 | MHC.OFFVIS ---
Intake Intake Visit Reasons: Newprob-Ganglion, unspecified site Intake Note: Yee is a 48 year old right hand dominant male who presents today for a evaluation for his lump on the volar aspect of the right wrist. Patient reports he has been having this for many years and it causing him a lot of pain. He states that he noticed another one on the dorsal aspect of the hand. Having numbness and tingling. Allergies morphine [MORPHINE] Allergy (Unknown, Verified 05/02/23 13:48) UNKNO HPI Newprob-Ganglion, unspecified site HPI Details 48-year-old right hand dominant male who presents in the office today for an evaluation of a lump on the volar aspect of the right wrist. He states he has been having this pain for many years and it is causing him a lot of pain. He reports a second lump on the dorsal aspect of the right hand. He confirms numbness and tingling. PFSH Medical History Ganglion cyst Back pain GERD (gastroesophageal reflux disease) GI bleed Surgical History Hx of colonoscopy Hx of abdominal surgery Family History Maternal Grandmother Hx of breast cancer Mother HTN (hypertension) Social History Household Members: Spouse Alcohol intake: current Alcohol intake frequency: holidays/special occasions only Patient Tobacco Use Status: Current someday Tobacco user Tobacco use type: Cigarette Cigarettes Per Day: 1 Years Smoked: 3 Substance Use Type: Marijuana Current occupational status: unemployed Review of Systems Const All systems reviewed & are unremarkable except as noted in HPI and below Physical Exam Const General: cooperative, healthy appearing and no acute distress Resp Effort & Inspection: normal respiratory effort and able to speak in complete sentences Cardio Rate: regular rate Peripheral pulses: Peripheral pulses 2+ throughout GI Palpation (GI): Soft to palpation Skin Lesions: no lesions Rashes: no rashes Extrem Other: Right hand: Ganglion cyst located over the dorsal aspect of the distal radius. It is roughly 1.5 by 1.5 cm, mobile, and nontender. Another small 0.5 by 0.5 cm growth in between the web space of the 1st and 2nd metacarpal, that is hard to palpation, non-mobile, and non-tender. No ecchymosis, erythema, or edema. Able to perform full finger flexion, extension, abduction, adduction, finger cross, okay sign, and thumbs up without deficit. Able to make a closed fist. Sensation intact. Capillary refill is brisk. Radial pulse intact. Assessment & Plan Assessment & Plan (1) Ganglion cyst of dorsum of right wrist: Comment: 1.5 by 1.5 cm Code(s): M67.431 - Ganglion, right wrist (2) Ganglion cyst: Comment: Located between the 1st and 2nd right metacarpals; 0.5 by 0.5 cm. Code(s): M67.40 - Ganglion, unspecified site Plan Mr. Cartwright is a 48-year-old right hand dominant male who presents in the office today for an evaluation of a lump on the volar aspect of the right wrist. He states he has been having this pain for many years and it is causing him a lot of pain. He reports a second lump on the dorsal aspect of the right hand. He confirms numbness and tingling. The patient will be referred for an MRI to evaluate the position of the ganglion at the base of the distal radius as well as the volar aspect of the 1st and 2nd metacarpal. Of note: He did show me a mass on his upper back which may be a lipoma and would like to be referred to general surgery to discuss possible surgical intervention of the removal of the mass. Follow up will be after the MRI is obtained, or sooner if needed. Orders: Orders MR hernandez RT wo con 05/02/23 M67.40 - Ganglion, unspecified site Referrals General Surgery Referral D17.9 - Benign lipomatous neoplasm, unspecified Patient Instructions: Scribed for Christel Paulino PA-C by christy Mills scribe, on 05/02/2023 at 1:44 pm, EST. Coding Level of Care Code New Pt Level 4 (23004) Diagnoses Ganglion cyst of dorsum of right wrist M67.431 Ganglion cyst M67.40
== END 2023-05-02 14:01 | disposition home or self-care (01) ==
PROVIDERS: PCP Student in an Organized Health Care Education/Training Program; Visit Provider Physician Assistant
DX: M67.431 Ganglion, right wrist (principal); M67.40 Ganglion, unspecified site
CPT/HCPCS: 99204

== ENCOUNTER → 2023-05-02 13:42 | Outpatient (BNVA) | payer MEDICAID, SELFPAY | PROVIDERS: PCP Student in an Organized Health Care Education/Training Program; Visit Provider Physician Assistant | DX: M67.431 Ganglion, right wrist (principal); M67.40 Ganglion, unspecified site | CPT/HCPCS: 99212 ==

== ENCOUNTER 2023-06-06 14:56 | Outpatient (AMB) | payer MEDICAID, SELFPAY ==
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
[2023-06-06 14:58] VITALS: BP 105/71; PULSE 67; BMI 24.3
== END 2023-06-06 15:41 | disposition home or self-care (01) ==
PROVIDERS: Visit Provider Nurse Practitioner Family
DX: K64.8 Other hemorrhoids (principal); K57.90 Diverticulosis of intestine, part unspecified, without perforation or abscess without bleeding; K21.9 Gastro-esophageal reflux disease without esophagitis; K59.04 Chronic idiopathic constipation; R10.10 Upper abdominal pain, unspecified
CPT/HCPCS: 99214

== ENCOUNTER → 2023-06-06 14:56 | Outpatient (BNVA) | payer MEDICAID, SELFPAY | PROVIDERS: Visit Provider Nurse Practitioner Family | DX: K64.8 Other hemorrhoids (principal); K57.90 Diverticulosis of intestine, part unspecified, without perforation or abscess without bleeding; K21.9 Gastro-esophageal reflux disease without esophagitis; K59.04 Chronic idiopathic constipation; R10.10 Upper abdominal pain, unspecified | CPT/HCPCS: 99212 ==

== ENCOUNTER 2023-06-08 18:59 | Outpatient (REF) | payer MEDICAID, SELFPAY ==
[2023-06-09 09:28] LABS: CT PCR NOT DETECTED (Not Detect.); NG PCR NOT DETECTED (Not Detect.)
== END 2023-06-08 19:00 | disposition home or self-care (01) ==
LOC: HO.HHCLNP 18:59
PROVIDERS: Visit Provider Student in an Organized Health Care Education/Training Program
DX: Z00.00 Encounter for general adult medical examination without abnormal findings (principal)
CPT/HCPCS: 0353U

== ENCOUNTER 2023-06-13 14:28 | Outpatient (AMB) | payer MEDICAID, SELFPAY ==
--- NOTE | 2023-06-13 14:35 | MHC.OFFVIS ---
Intake Vital Signs 06/13/23 14:40 Height 5 ft 9 in Weight 171 lb BMI 25.2 BP 102/60 Blood Pressure Location Rt brachial Position Sitting Pulse 81 Intake Visit Reasons: Hemorrhoidectomy consult, eval mass on back Intake Note: Patient referred by Barb Jiang for hemorrhoidectomy consult. Was prescribed docusate sodium, proctosol cr. Patient c/o: bleeding with bm. Patient also referred by Christel Paulino PA-C/ ortho on 05-02-23 for or mass on back. Present for 2yrs. Enlarging. Die Sinker Apprentice Required: No Accompanied by: Spouse Allergies morphine [MORPHINE] Allergy (Unknown, Verified 06/13/23 14:38) UNKNO HPI HPI Comments History of Present Illness Details Patient presents with 1. Symptomatic hemorrhoids 2. Mid back soft tissue mass; 1. Symptomatic hemorrhoids for approximate 1 year's time. He has had periodic bleeding and prolapsing . Patient had colonoscopy approximately 6 months ago which was otherwise within normal limits. 2. Mid back soft tissue mass was used had indeterminate time but is increasing in size, becoming more symptomatic and wishes to have it removed. Chart was reviewed and patient evaluated [facility] Medical History Ganglion cyst Back pain GERD (gastroesophageal reflux disease) GI bleed Surgical History Hx of colonoscopy Hx of abdominal surgery Family History Maternal Grandmother Hx of breast cancer Mother HTN (hypertension) Social History Household Members: Spouse Alcohol intake: current Alcohol intake frequency: holidays/special occasions only Patient Tobacco Use Status: Current someday Tobacco user Tobacco use type: Cigarette Cigarettes Per Day: 1 Years Smoked: 3 Substance Use Type: Marijuana Current occupational status: unemployed Physical Exam Vital Signs: Last Vital Signs Pulse 81 06/13/23 14:40 BP 102/60 06/13/23 14:40 BMI result Body Mass Index 25.2 Const Other: Well-developed male with multiple head and neck and upper extremity tattoos Chest Other: Chest breath sounds bilaterally, HS 1 in 2 GI Other: Abdomen soft, benign. Rectal exam demonstrates very large internal and moderately sized external hemorrhoids. Rectal exam was deferred secondary to patient's discomfort Back/Spine/Pelvis Other: Mid back soft tissue mass measuring approximately 4 x 4 cm consistent with a large lipoma Assessment & Plan Assessment & Plan (1) Lipoma of back: Code(s): D17.1 - Benign lipomatous neoplasm of skin and subcutaneous tissue of trunk (2) Hemorrhoids that prolapse with straining and require manual replacement back inside anal canal: Code(s): K64.2 - Third degree hemorrhoids Plan Risks, benefits, alternatives of 1. Hemorrhoidectomy reviewed with the patient and included but not limited to bleeding, infection, recurrence, numbness, pain, scarring, incontinence 2. Mid back lipoma excision which included bleeding, infection, dehiscence, numbness, pain, scarring, and the patient wishes to proceed with both. All questions answered. Arrangements were made for these to be done at the same sitting. Coding Level of Care Code New Pt Level 5 (49046) Diagnoses Lipoma of back D17.1 Hemorrhoids that prolapse with straining and require manual replacement back inside anal canal K64.2
[2023-06-13 14:40] VITALS: BP 102/60; PULSE 81; BMI 25.2
== END 2023-06-13 14:47 | disposition home or self-care (01) ==
PROVIDERS: PCP Student in an Organized Health Care Education/Training Program; Referring Provider Student in an Organized Health Care Education/Training Program; Visit Provider Surgery
DX: D17.1 Benign lipomatous neoplasm of skin and subcutaneous tissue of trunk (principal); K64.2 Third degree hemorrhoids
CPT/HCPCS: 99204

== ENCOUNTER → 2023-06-13 14:28 | Outpatient (BNVA) | payer MEDICAID, SELFPAY | PROVIDERS: PCP Student in an Organized Health Care Education/Training Program; Referring Provider Nurse Practitioner Family; Visit Provider Surgery | DX: D17.1 Benign lipomatous neoplasm of skin and subcutaneous tissue of trunk (principal); K64.2 Third degree hemorrhoids | CPT/HCPCS: 99202 ==

== ENCOUNTER 2023-06-22 11:19 | Day surgery (SDC) | payer MEDICAID, SELFPAY ==
[2023-06-20 11:10] VITALS: BMI 25.2
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
--- NOTE | 2023-06-21 13:42 | MHC.SHP ---
Pre-Procedural Eval Section A Date of Service: 06/21/23 The patient is an INPATIENT: No Changes since office visit: No Cold of Flu in the past 2 weeks, No New Medical Problems, No Changes in Medication and No Patient answered all questions The History & Physical has been completed within 30 days and I have reviewed it.: Yes Section B Chief Complaint: Benign lipomatous neoplasm of skin and subcutaneou Allergies: Allergies Allergy/AdvReac Type Severity Reaction Status Date / Time morphine [MORPHINE] Allergy Unknown UNKNO Verified 06/13/23 14:38 Plan I have reviewed the history and physical and performed a pertinent physical examination on my patient. No changes have occurred unless specified. Time Spent With Patient Time: Total time managing care of this patient today ____ minutes.
[2023-06-22] VITALS (18 sets, daily range): BP systolic 104–126; BP diastolic 67–90; PULSE 56–90; RESP 16–20; TEMP 36.3–36.8; O2SAT 97–100; BMI 25.2
[2023-06-22] MEDS: Lactated Ringers 1,000 ML 100 ML IVCONT (13:01)
--- NOTE | 2023-06-22 15:48 | W.PM.OPN ---
Operative Note Operative Note Date of Service: 06/22/23 Narrative: Preoperative diagnosis: [] 1. Mid back symptomatic lipoma 2. Symptomatic internal and external hemorrhoids Postop diagnosis: [] Same Procedure [] 1. Wide local excision mid back deep intramuscular lipoma 2. Internal and external hemorrhoidectomy x3 Surgeon: [] Gus Director Of Institutional Sales: [] Jett Type of Anesthesia: [] General Indication for surgery: [] 1. Lipoma measuring approximately 4 x 3 cm intramuscular mid back 2. Three, 7, 11:00 o'clock internal and external hemorrhoids. Findings: [] Patient brought to the operating room, placed on table supine position, after adequate level of general anesthesia was induced, patient was initially placed in the right lateral decubitus position. Right mid back was prepped and draped in usual sterile fashion. Using a transverse incision over the mid back symptomatic lipoma, this carried down through skin, subcutaneous tissue, and muscle fascia were uneventfully enucleation of proximally 4 x 3 cm lipoma was uneventfully performed. Specimen sent to pathology. Wound was irrigated and secured hemostasis. Muscle fascia was reapproximated using interrupted 2-0 Vicryl sutures. Skin was closed using interrupted inverted dermal 3-0 Vicryl sutures followed by Steri-Strips and sterile dressings. Wound was infiltrated 1% lidocaine/0.5% Marcaine. Steri-Strips and sterile dressings were applied. Patient was originally to be placed in the supine position with lithotomy but was then instead placed in the prone position. Tape retraction of the buttocks was performed and the anorectal area was prepped and draped in usual sterile fashion. Three, 07:11 o'clock symptomatic hemorrhoids were each identified, and sequentially grasped and double firing of ligature device performed and excised x3. Specimen sent to pathology. At completion of procedure, wounds were irrigated, secured hemostasis, and infiltrated with 1% lidocaine/0.5% Marcaine. In no canal was not compromise or strictured. Gelfoam impregnated with Marcaine plug was then placed. Dressing applied. Sponge, needle, and instrument counts reported correct. Patient tolerated the procedure well and emerged from anesthesia stable condition. EBL minimal
[2023-06-22] MEDS: oxyCODONE HCl Immed Release 5 MG TABLET PO (16:57)
[2023-06-22] MEDS: fentaNYL citrate/PF 100 MCG/2 ML VIAL 25 MCG IVPUSH ×4 (16:58→17:38)
[2023-06-22] MEDS: Acetaminophen 1,000 MG/100 ML PIGGYBACK 400 MG IV (17:00)
== END 2023-06-22 18:05 | disposition home or self-care (01) ==
PROVIDERS: PCP Student in an Organized Health Care Education/Training Program; Visit Provider Surgery
PROC: (CPT 21932; principal; 2023-06-22 12:40)
PROC: (CPT 21932; 2023-06-22 12:40)
DX: D17.1 Benign lipomatous neoplasm of skin and subcutaneous tissue of trunk (principal); K64.2 Third degree hemorrhoids; K64.4 Residual hemorrhoidal skin tags; Z88.5 Allergy status to narcotic agent; M54.9 Dorsalgia, unspecified; K21.9 Gastro-esophageal reflux disease without esophagitis; Z87.828 Personal history of other (healed) physical injury and trauma; Z98.890 Other specified postprocedural states; F17.210 Nicotine dependence, cigarettes, uncomplicated
CPT/HCPCS: 21932; 46260; 88304; J0131; J0665; J0690; J2250; J2371; J2405; J2704; J2765; J3010

== ENCOUNTER → 2023-06-22 11:19 | Outpatient (BNV) | payer MEDICAID, SELFPAY | PROVIDERS: PCP Student in an Organized Health Care Education/Training Program; Visit Provider Surgery | DX: K64.8 Other hemorrhoids (principal); D17.1 Benign lipomatous neoplasm of skin and subcutaneous tissue of trunk | CPT/HCPCS: 21932; 46260 ==

== ENCOUNTER → 2023-06-28 22:51 | Outpatient (BNV) | payer MEDICAID, SELFPAY ==
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
== END ==
PROVIDERS: PCP Student in an Organized Health Care Education/Training Program; Visit Provider Surgery
DX: K64.2 Third degree hemorrhoids (principal)
CPT/HCPCS: 99024; 99212

== ENCOUNTER 2023-06-28 23:07 | Emergency (ER) | payer MEDICAID, SELFPAY ==
[2023-06-28 23:22] VITALS: BP 111/68; PULSE 79; RESP 22; TEMP 36.8; O2SAT 97; BMI 25.1
[2023-06-28 23:45] LABS: MANUAL DIFF FLAG NO
[2023-06-28 23:46] LABS: Basophils Absolute Auto 0.1 X10*3/uL (0.0-0.2); Basophils Percent Auto 0.5 % (0-2); Eosinophils Absolute Auto 0.1 X10*3/uL (0.0-0.4); Eosinophils Percent Auto 1.1 % (0-4); Hematocrit 39.5 % (42.0-52.0); Hemoglobin 13.7 g/dl (14.0-18.0); Imm Gran Abs Auto 0.03 X10*3/uL (0.00-0.03); Imm Gran Pct Auto 0.3 % (0.0-0.4); Lymphocytes Absolute Auto 2.8 X10*3/uL (1.2-4.9); Lymphocytes Percent Auto 28.6 % (20-40); Mean Corpuscular HGB Conc 34.7 g/dl (31.0-36.0); Mean Corpuscular Hemoglobin 31.4 pg (27.0-33.0); Mean Corpuscular Volume 90.4 fL (80.0-98.0); Mean Platelet Volume 10.9 fL (9.4-12.4); Monocytes Absolute Auto 0.6 X10*3/uL (0.1-1.2); Monocytes Percent Auto 6.3 % (2-11); Neutrophils Absolute Auto 6.1 x10*3/uL (2.0-8.3); Neutrophils Percent Auto 63.2 % (45-73); Platelet Count 192 X10*3/uL (160-400); Red Blood Count 4.37 X10*6/uL (4.60-5.80); Red Cell Distribution Width 12.7 % (11.0-16.0); White Blood Count 9.7 X10*3/uL (4.8-10.8)
[2023-06-28 23:59] LABS: Alanine Aminotransferase 12 U/L (0-40); Albumin Level 4.1 g/dL (3.5-5.0); Alkaline Phosphatase 46 U/L (39-117); Anion Gap 13 (12-20); Aspartate Amino Transferase 14 U/L (5-37); Bilirubin Total 0.2 mg/dL (0.0-1.0); Blood Urea Nitrogen 10 mg/dL (9-16); Calcium 9.5 mg/dL (8.4-10.2); Carbon Dioxide 22 mmol/L (22-29); Chloride 106 mmol/L (96-108); Creatinine Clr Calc Pharmacy 108.7; Estimated Glomerular Filt Rate > 60; Glucose Random 101 mg/dL (60-115); Potassium 4.3 mmol/L (3.3-5.1); Sodium 137 mmol/L (135-145); Total Protein 7.1 g/dL (6.5-8.0)
[2023-06-29 04:49] VITALS: BP 123/81; PULSE 53; RESP 16; TEMP 36.6; O2SAT 100
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
[2023-06-29] MEDS: Lidocaine HCl 2 % Urojet 10 ML JEL.PF.APP TOPICAL (05:58)
[2023-06-29 06:06] VITALS: BP 117/65; PULSE 56; RESP 18; TEMP 36.7; O2SAT 100
== END 2023-06-29 06:17 | disposition home or self-care (01) ==
PROVIDERS: Emergency Provider Internal Medicine; PCP Student in an Organized Health Care Education/Training Program
DX: K62.5 Hemorrhage of anus and rectum (principal)
CPT/HCPCS: 36415; 80053; 85025; 99284

== ENCOUNTER 2023-07-07 11:42 | Outpatient (AMB) | payer MEDICAID, SELFPAY ==
[2023-07-07 11:46] VITALS: BP 124/68; PULSE 79
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
== END 2023-07-07 11:52 | disposition home or self-care (01) ==
LOC: HO.HGS 11:42
PROVIDERS: PCP Student in an Organized Health Care Education/Training Program; Visit Provider Surgery
DX: Z98.890 Other specified postprocedural states (principal); Z87.19 Personal history of other diseases of the digestive system; Z86.018 Personal history of other benign neoplasm
CPT/HCPCS: 99024

== ENCOUNTER → 2023-07-07 11:42 | Outpatient (BNVA) | payer MEDICAID, SELFPAY | PROVIDERS: PCP Student in an Organized Health Care Education/Training Program; Visit Provider Surgery | DX: Z48.815 Encounter for surgical aftercare following surgery on the digestive system (principal); Z87.19 Personal history of other diseases of the digestive system; Z98.890 Other specified postprocedural states; Z86.018 Personal history of other benign neoplasm | CPT/HCPCS: 99212 ==

== ENCOUNTER 2023-07-21 09:06 | Outpatient (AMB) | payer MEDICAID, SELFPAY ==
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
== END 2023-07-21 09:11 | disposition home or self-care (01) ==
PROVIDERS: PCP Student in an Organized Health Care Education/Training Program; Visit Provider Surgery
DX: Z98.890 Other specified postprocedural states (principal); Z86.018 Personal history of other benign neoplasm; Z87.19 Personal history of other diseases of the digestive system
CPT/HCPCS: 99024

== ENCOUNTER → 2023-07-21 09:06 | Outpatient (BNVA) | payer MEDICAID, SELFPAY | PROVIDERS: PCP Student in an Organized Health Care Education/Training Program; Visit Provider Surgery | DX: Z98.890 Other specified postprocedural states (principal); Z87.19 Personal history of other diseases of the digestive system; Z86.018 Personal history of other benign neoplasm | CPT/HCPCS: 99212 ==

== ENCOUNTER 2023-11-09 | Outpatient (REF) | payer MEDICAID, SELFPAY | END 2023-11-09 00:01 | disposition home or self-care (01) | LOC: CF | PROVIDERS: Visit Provider Orthopaedic Surgery | DX: M75.42 Impingement syndrome of left shoulder (principal) | CPT/HCPCS: 99202 ==

== ENCOUNTER 2023-11-09 13:30 | Outpatient (AMB) | payer MEDICAID, SELFPAY ==
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
== END 2023-11-09 14:13 | disposition home or self-care (01) ==
PROVIDERS: PCP Student in an Organized Health Care Education/Training Program; Visit Provider Orthopaedic Surgery
DX: M25.512 Pain in left shoulder (principal)
CPT/HCPCS: 99204

== ENCOUNTER 2024-01-30 14:37 | Outpatient (REF) | payer MEDICAID, SELFPAY ==
[2024-01-30 16:24] LABS: Hematocrit 45.6 % (42.0-52.0); Hemoglobin 15.4 g/dl (14.0-18.0); Mean Corpuscular HGB Conc 33.8 g/dl (31.0-36.0); Mean Corpuscular Hemoglobin 31.8 pg (27.0-33.0); Mean Corpuscular Volume 94.2 fL (80.0-98.0); Mean Platelet Volume 11.5 fL (9.4-12.4); Platelet Count 254 X10*3/uL (160-400); Red Blood Count 4.84 X10*6/uL (4.60-5.80); Red Cell Distribution Width 12.4 % (11.0-16.0); White Blood Count 7.9 X10*3/uL (4.8-10.8)
[2024-01-30 16:44] LABS: Estimated Average Glucose 97 mg/dL
[2024-01-30 16:59] LABS: Alanine Aminotransferase 27 U/L (0-40); Albumin Level 4.3 g/dL (3.5-5.0); Alkaline Phosphatase 61 U/L (39-117); Anion Gap 13 (12-20); Aspartate Amino Transferase 21 U/L (5-37); Bilirubin Total 0.5 mg/dL (0.0-1.0); Blood Urea Nitrogen 9 mg/dL (9-16); Calcium 9.9 mg/dL (8.4-10.2); Carbon Dioxide 25 mmol/L (22-29); Chloride 104 mmol/L (96-108); Cholesterol 200 mg/dL (<200); Estimated Glomerular Filt Rate > 60; Glucose Random 95 mg/dL (60-115); HDL Cholesterol 59 mg/dL (>40); LDL Cholesterol Calculated 102 mg/dL (<100); Potassium 4.4 mmol/L (3.3-5.1); Sodium 138 mmol/L (135-145); Total Protein 7.5 g/dL (6.5-8.0); Triglycerides 198 mg/dL (<150)
[2024-01-31 04:38] LABS: Syphilis Screen Nonreactive (Nonreactive)
[2024-01-31 04:55] LABS: HBS Num1 138.67 mIU/mL (0-7.99); HBc Num1 0.12 S/CO (0.00-0.79); HBsAGNum1 0.23 S/CO (0.00-0.99); HIV AB/AG Nonreactive (Nonreactive); HIV Num 1 0.06 S/CO (0.00-0.99); Hepatitis B Core Antibody Nonreactive (Nonreactive); Hepatitis B Surface Antigen Negative (Negative); ~HepC Num1 0.13 S/CO (0.00-0.79); ~Hepatitis B Surface Antibody REACTIVE (Nonreactive); ~Hepatitis C Antibody Nonreactive (Nonreactive)
[2024-01-31 06:03] LABS: CT PCR NOT DETECTED (Not Detect.); NG PCR NOT DETECTED (Not Detect.)
== END 2024-01-30 14:38 | disposition home or self-care (01) ==
LOC: HO.HHCL 14:37
PROVIDERS: Visit Provider Student in an Organized Health Care Education/Training Program
DX: Z00.00 Encounter for general adult medical examination without abnormal findings (principal)
CPT/HCPCS: 36415; 80053; 80061; 83036; 84443; 85027; 86704; 86706; 86780; 86803; 87340; 87389; 87491; 87591

== ENCOUNTER 2024-02-01 15:19 | Outpatient (REF) | payer MEDICAID, SELFPAY ==
[2024-02-01 17:43] LABS: Folate 14.4 ng/mL (> or = 4.0); Vitamin B12 480 pg/mL (200-900)
== END 2024-02-01 15:20 | disposition home or self-care (01) ==
LOC: HO.HHCL 15:19
PROVIDERS: Visit Provider Student in an Organized Health Care Education/Training Program
DX: R41.3 Other amnesia (principal)
CPT/HCPCS: 36415; 82607; 82746

== ENCOUNTER 2024-02-19 13:17 | Outpatient (AMB) | payer MEDICAID, SELFPAY ==
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
[2024-02-19 13:21] VITALS: BMI 25.1
== END 2024-02-19 13:43 | disposition home or self-care (01) ==
PROVIDERS: PCP Student in an Organized Health Care Education/Training Program; Visit Provider Orthopaedic Surgery
DX: M75.102 Unspecified rotator cuff tear or rupture of left shoulder, not specified as traumatic (principal)
CPT/HCPCS: 99214

== ENCOUNTER → 2024-02-19 13:17 | Outpatient (BNVA) | payer MEDICAID, SELFPAY | PROVIDERS: PCP Student in an Organized Health Care Education/Training Program; Visit Provider Orthopaedic Surgery | DX: M75.102 Unspecified rotator cuff tear or rupture of left shoulder, not specified as traumatic (principal) | CPT/HCPCS: 99212 ==

== ENCOUNTER 2024-02-19 15:00 | Outpatient (REF) | payer MEDICAID, SELFPAY ==
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
== END 2024-02-19 15:01 | disposition home or self-care (01) ==
LOC: HO.US 15:00
PROVIDERS: PCP Student in an Organized Health Care Education/Training Program; Visit Provider Student in an Organized Health Care Education/Training Program
DX: N49.2 Inflammatory disorders of scrotum (principal)
CPT/HCPCS: 76870

== ENCOUNTER 2024-02-28 08:36 | Day surgery (SDC) | payer MEDICAID, SELFPAY ==
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
[2024-02-28 10:02] VITALS: BP 124/79; PULSE 61; RESP 19; TEMP 37; O2SAT 98; BMI 25.4
--- NOTE | 2024-02-28 10:12 | MHC.SHP ---
Pre-Procedural Eval Section A - 24 Hr Update-Section A only Date of Service: 02/28/24 The patient is an INPATIENT: No Changes since office visit: No Cold of Flu in the past 2 weeks, No New Medical Problems, No Changes in Medication and No Patient answered all questions The patient has been examined within 24 hours of the surgical procedure. The History & Physical has been completed within 30 days and I have reviewed it.: Yes Section B - Complete if H&P > 30 days Chief Complaint: Complete rotator cuff tear or rupture of left shou Allergies: Allergies Allergy/AdvReac Type Severity Reaction Status Date / Time morphine [MORPHINE] Allergy Unknown UNKNO Verified 11/09/23 13:46 Plan I have reviewed the history and physical and performed a pertinent physical examination on my patient. No changes have occurred unless specified. Time Spent With Patient Time: Total time managing care of this patient today ____ minutes.
[2024-02-28] MEDS: Lactated Ringers 1,000 ML 100 ML IVCONT (10:25)
--- NOTE | 2024-02-28 15:20 | PM.OP ---
Brief Operative Note Date of Service: 02/28/24 Pre-op diagnosis: Left RTC tear Post-op diagnosis: other (1) Left RTC tear 2) left labral tear ) Procedure: arthroscopic rtc repair with circumferential labral debridement Implants: [employer]hew 4.75 double loaded helacoil x 2 and Helacoil knotless 5.0 anchors x 2 Surgeon: Ji Stauffer MD Anesthesia: GETA and regional Was an Retaining Room Cutter used for this Procedure?: Yes Retaining Room Cutter: Amilcar Paige Estimated blood loss (mL): 25 IV fluids (mL): 1,000 Pathology: none sent Condition: stable Disposition: PACU
[2024-02-28 15:40] VITALS: BP 128/74; PULSE 62; RESP 16; TEMP 36.1; O2SAT 97
[2024-02-28 15:45] VITALS: BP 132/83; PULSE 60; RESP 18; O2SAT 97
[2024-02-28 15:50] VITALS: BP 129/88; PULSE 59; RESP 18; O2SAT 97
[2024-02-28 15:55] VITALS: BP 130/86; PULSE 72; RESP 18; O2SAT 96
[2024-02-28 16:10] VITALS: BP 126/85; PULSE 66; RESP 18; TEMP 36.4; O2SAT 98
--- NOTE | 2024-03-07 16:19 | W.PM.OPN ---
Operative Note Operative Note Date of Service: 02/28/24 Narrative: Date of Service: 02/28/24 Pre-op diagnosis: Left RTC tear Post-op diagnosis: other (1) Left RTC tear 2) left labral tear ) Procedure: arthroscopic rtc repair with circumferential labral debridement Implants: [employer]hew 4.75 double loaded helacoil x 2 and Helacoil knotless 5.0 anchors x 2 Surgeon: Ji Stauffer MD Anesthesia: GETA and regional Was an Trauma Coordinator used for this Procedure?: Yes Trauma Coordinator: Amilcar Paige Estimated blood loss (mL): 25 IV fluids (mL): 1,000 Pathology: none sent Condition: stable Disposition: PACU Procedure in detail: Patient was brought to the operating room and placed the the beach chair position. All bony prominences were well padded and the limb was prepped and draped in standard sterile fashion. A time out was called to identify proper site, proper procedure and proper surgeon. IV antibiotics per weight were administered. I began by making a posterolateral stab incision with a 15 blade. A blunt trochar was placed into the glenohumeral joint and I insufflated the joint with saline and a 30 degree arthroscope was placed. I established an outside- in anterior portal just distal to the biceps tendon. I then began my inspection of the glenohumeral joint. There was a small degenerative SLAP tear at the biceps anchor ( Type 1). There were minimal cartilage changes at the inferior glenoid without humeral head changes. There was a full thickness undersurface RTC tear. The subcapularis was intact. I debrided the loose cartilage of the glenoid and the degenerative labral tearing. I then removed the trochar and entered the subacromial space. A direct lateral portal was then established and I performed a bursectomy. The cuff was then examined. There was a full thickness tear of the supra and infraspinatus without retraction. The tear was mobile. I placed two medial row double loaded anchors after using a tap just adjacent to the articular cartilage and then brought the suture limbs ( 8) through the medial cuff. I then debrided the bare area down to bleeding bone and, using a cross bridge configuration, brought 4 limbs to each of two lateral 5.0 anchors. This re-approximated the cuff anatomy anatomically. Once I was satisfied with the repair final images were captured and I removed all instrumentation. Portals were closed with nylon. Patient was placed in an abduction sling, extubated and brought to the recovery room in stable condition. There were no known complications.
== END 2024-02-28 16:40 | disposition home or self-care (01) ==
LOC: HO.SSS 08:37
PROVIDERS: PCP Student in an Organized Health Care Education/Training Program; Visit Provider Orthopaedic Surgery
PROC: (CPT 29827; principal; 2024-02-28 13:30)
DX: M75.122 Complete rotator cuff tear or rupture of left shoulder, not specified as traumatic (principal); S43.432A Superior glenoid labrum lesion of left shoulder, initial encounter; M25.512 Pain in left shoulder; R53.1 Weakness; V89.2XXA Person injured in unspecified motor-vehicle accident, traffic, initial encounter; Y93.9 Activity, unspecified; Y92.410 Unspecified street and highway as the place of occurrence of the external cause; Y99.9 Unspecified external cause status; Z87.828 Personal history of other (healed) physical injury and trauma; Z56.0 Unemployment, unspecified; Z98.890 Other specified postprocedural states; F17.210 Nicotine dependence, cigarettes, uncomplicated
CPT/HCPCS: 29827; 29823; C1713; J0131; J0171; J0665; J0690; J1100; J1885; J2003; J2250; J2405; J2704; J3010

== ENCOUNTER → 2024-02-28 08:36 | Outpatient (BNV) | payer MEDICAID, SELFPAY | PROVIDERS: PCP Student in an Organized Health Care Education/Training Program; Visit Provider Orthopaedic Surgery | DX: S43.431A Superior glenoid labrum lesion of right shoulder, initial encounter (principal); S46.011A Strain of muscle(s) and tendon(s) of the rotator cuff of right shoulder, initial encounter | CPT/HCPCS: 29827 ==

== ENCOUNTER 2024-03-07 15:16 | Outpatient (AMB) | payer MEDICAID, SELFPAY ==
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
== END 2024-03-07 16:48 | disposition home or self-care (01) ==
PROVIDERS: PCP Student in an Organized Health Care Education/Training Program; Visit Provider Physician Assistant
DX: Z98.890 Other specified postprocedural states (principal)
CPT/HCPCS: 99024

== ENCOUNTER → 2024-03-07 15:16 | Outpatient (BNVA) | payer MEDICAID, SELFPAY | PROVIDERS: PCP Student in an Organized Health Care Education/Training Program; Visit Provider Physician Assistant | DX: M25.512 Pain in left shoulder (principal); Z98.890 Other specified postprocedural states | CPT/HCPCS: 99212 ==

== ENCOUNTER 2024-03-27 14:12 | Outpatient (AMB) | payer MEDICAID, SELFPAY ==
[2024-03-27 14:21] VITALS: BP 118/74; PULSE 88; O2SAT 98; BMI 24.7
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
== END 2024-03-27 15:08 | disposition home or self-care (01) ==
LOC: HO.HGI 14:13
PROVIDERS: PCP Student in an Organized Health Care Education/Training Program; Visit Provider Nurse Practitioner Family
DX: K64.8 Other hemorrhoids (principal); K57.90 Diverticulosis of intestine, part unspecified, without perforation or abscess without bleeding; K21.9 Gastro-esophageal reflux disease without esophagitis; K59.04 Chronic idiopathic constipation; R10.32 Left lower quadrant pain
CPT/HCPCS: 99213

== ENCOUNTER → 2024-03-27 14:12 | Outpatient (BNVA) | payer MEDICAID, SELFPAY | PROVIDERS: PCP Student in an Organized Health Care Education/Training Program; Visit Provider Nurse Practitioner Family | DX: K64.8 Other hemorrhoids (principal); K57.90 Diverticulosis of intestine, part unspecified, without perforation or abscess without bleeding; K21.9 Gastro-esophageal reflux disease without esophagitis; K59.04 Chronic idiopathic constipation; R10.32 Left lower quadrant pain | CPT/HCPCS: 99212 ==

== ENCOUNTER 2024-04-23 12:44 | Outpatient (AMB) | payer MEDICAID, SELFPAY ==
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
[2024-04-23 12:50] VITALS: BMI 24.7
== END 2024-04-23 13:26 | disposition home or self-care (01) ==
PROVIDERS: PCP Student in an Organized Health Care Education/Training Program; Visit Provider Orthopaedic Surgery
DX: Z98.890 Other specified postprocedural states (principal)
CPT/HCPCS: 99024

== ENCOUNTER → 2024-04-23 12:44 | Outpatient (BNVA) | payer MEDICAID, SELFPAY | PROVIDERS: PCP Student in an Organized Health Care Education/Training Program; Visit Provider Orthopaedic Surgery | DX: Z98.890 Other specified postprocedural states (principal) | CPT/HCPCS: 99212 ==

== ENCOUNTER 2024-08-26 16:54 | Outpatient (RCR) | payer MEDICAID, SELFPAY ==
--- NOTE | 2024-06-06 10:57 | MHC.PT.EP ---
[facility] [place] Office [place] Office [place] Office [address] Bridgette Zhong [address] [phone] F: [phone] F: [phone] F: [phone] F: [phone] Physical Therapy Plan of Care Date of Evaluation: 06/05/24 Date of Surgery: 02/28/24 Diagnosis: Other specified postprocedural states s/p left rotator cuff repair Assessment: Pt is a pleasant 49yo M who presents to PT s/p L RTC repair on 02/28/24. He reports this is his first post operative PT appointment. He presents to PT with current impairments in pain, decreased ROM, soft tissue restrictions, decreased strength, and impaired posture. He is limited functionally by general use of L UE. He is a good candidate for skilled PT in order to address current impairments to maximize function and independence. He is recommended to be seen 2x/week for 4 weeks Frequency and Duration: The patient will be seen 2x/week for 4 weeks Short Term Goals: Pt will be I with HEP to promote self management of symptoms PT will improve L shoulder flexion to at least 100 deg [employer] Goals: Pt will achieve L shoulder flexion AROM 120 degrees to assist with reaching Pt will improve L shoulder flexion strength to at least 4+/5 to assist with lifting Pt will perform overhead ADLs with minimal to no compensation Treatment Plan: Modalities to reduce pain, spasms and effusion. Manual therapy to restore motion and function. Therapeutic exercise to improve strength and flexibility. Neuromuscular re-education for posture and balance. Therapeutic activities to return to functional activities of daily living. Electronically signed by: Radha Caldwell, PT, DPT Please sign and return to therapist. Thank you for your referral.
--- NOTE | 2024-11-13 14:10 | MHC.PT.DC ---
[facility] [place] Office [place] Office [place] Office [address] Bridgette Zhong [address] [phone] F: [phone] F: [phone] F: [phone] F: [phone] Physical Therapy Discharge Report Diagnosis: Other specified postprocedural states s/p left rotator cuff repair Date of Surgery: 02/28/24 Date of Evaluation: 06/05/24 Date of Discharge: 11/13/24 Treatments to Date: 9 Cancellations to Date: No Shows to Date: 6 Discharge Status: Visit Non-compliance Discharge Summary: Pt was seen for skilled PT from 06/05/24-08/26/24. His last attended and scheduled appointment was 08/26/24. He is being D/C from skilled PT as he has not attended or called to schedule in > 30 days. Pt current level of function unknown at this time Electronically signed by: Radha Caldwell, PT, DPT Please sign and return to therapist. Thank you for your referral.
--- NOTE | 2024-11-13 14:12 | MHC.PT.DC ---
[facility] [place] Office [place] Office [place] Office [address] Bridgette Zhong [address] [phone] F: [phone] F: [phone] F: [phone] F: [phone] Physical Therapy Discharge Report Diagnosis: Other specified postprocedural states s/p left rotator cuff repair Date of Surgery: 02/28/24 Date of Evaluation: 06/05/24 Date of Discharge: 11/13/24 Treatments to Date: 9 Cancellations to Date: No Shows to Date: 6 Discharge Status: Improved Function Independent with HEP Discharge Summary: Pt was seen for skilled PT from 06/05/24-08/26/24. His last attended and scheduled appointment was 08/26/24. He made good progress with PT and was I with HEP and returned to gym routine. He was D/C to HEP at last attended session on 08/26/24 Electronically signed by: Radha Caldwell, PT, DPT Please sign and return to therapist. Thank you for your referral.
== END 2024-11-13 14:10 | disposition home or self-care (01) ==
LOC: HO.PT 16:54
PROVIDERS: PCP Student in an Organized Health Care Education/Training Program; Visit Provider Orthopaedic Surgery
DX: Z98.890 Other specified postprocedural states (principal)
CPT/HCPCS: 97110; 97140; 97162; 97530

== ENCOUNTER 2024-10-29 13:33 | Outpatient (REF) | payer MEDICAID, SELFPAY ==
--- NOTE | ~2024-10-29 | XR_ITS ---
EXAMINATION: XR CLAVICLE, RIGHT CLINICAL INFORMATION: pain and bony enlargement of right clavicule COMPARISON: None TECHNIQUE: 2 view x-ray of the right clavicle. FINDINGS: Corticated ossification is present along the distal superior aspect of the clavicle. There are small marginal osteophytes and joint. The AC joint is aligned without elevation of the distal clavicle. No abnormality is evident. XR/XR clavicle RT IMPRESSION: Mild AC joint degeneration. Evidence of remote superior acromioclavicular ligament periosteal stripping from distal clavicle and subsequent healing. Electronically signed by: Uziel Prieto MD 10/29/2024 01:53 PM EDT
== END 2024-10-29 13:34 | disposition home or self-care (01) ==
LOC: HO.HHCX 13:33
PROVIDERS: Visit Provider Student in an Organized Health Care Education/Training Program
DX: M89.8X1 Other specified disorders of bone, shoulder (principal)
CPT/HCPCS: 73000

== ENCOUNTER → 2024-10-29 13:34 | Outpatient (BNV) | payer MEDICAID, SELFPAY | PROVIDERS: Visit Provider Radiology Diagnostic Radiology | DX: M25.511 Pain in right shoulder (principal); M89.311 Hypertrophy of bone, right shoulder | CPT/HCPCS: 73000 ==

== ENCOUNTER 2024-12-26 13:14 | Outpatient (REF) | payer MEDICAID, SELFPAY ==
--- OUTSIDE RECORDS SUMMARY | 2024-12-26 13:25 | XMS_ITS | Clinical Summary ---
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 with the patient's clinical presentation,history and other laboratory results. If the results areinconsistent with clinical evidence, additional testing issuggested to confirm the result. Blood Venous blood specimen / Unknown 01/30/2024 2:43 PM EDT 01/30/2024 4:08 PM EDT Cat Rodriguez MD LAB BLOOD ORDERAB LES Final Result [facility] [address] [place] [address] [phone] * (ABNORMAL) Lipid Panel, Standard (01/30/2024 2:43 PM EDT) Pathologist [facility] Triglycerides 198(H) <150 mg/dL [facility] Comment:Desirable Triglyceri de: less than 150 mg/dLBorderline High Triglyceride 150-199 mg/dLHigh Triglyceride: 200-499 mg/dLVery High Triglyceride: greater than or equal to 5OO mg/dL Cholesterol 200(H) <200 mg/dL [facility] Comment:Desirable Cholestero l: less than 200 mg/dLBorderline High Cholesterol: 200-239 mg/dLHigh Cholesterol: greater than 239 mg/dL LDL Cholesterol Calculated 102(H) <100 mg/dL [facility] Comment:Desirable LDL: less than 100 mg/dLNear Optimal/Above Optimal LDL: 110- 129 mg/dLBorderline High LDL: 130-159 mg/dLHigh LDL: 160-189 mg/dLVery High LDL: greater than or equal to 190 mg/dL HDL Cholesterol 59 >40 mg/dL [facility] Comment:Desirable HDL: great er than 40 mg/dL Note: This HDL assay may give artificially low results in patients with liver disease. Blood Venous blood specimen / Unknown 01/30/2024 2:43 PM EDT 01/30/2024 4:08 PM EDT Cat Rodriguez MD LAB BLOOD ORDERAB LES Final Result [facility] [address] [place] [phone] * Hm Colonoscopy (08/01/2022 3:27 PM EST) us Historical Provider HEALTH MAINTENANCE Final Result from Last 3 Months or Most Recently Relevant to Health Maintenance Insurance [facility] STANDARD Care Teams Crab Fisher Relationship Specialty Start Date End Date Cat Amaya MD [address] [place] [phone] PCP - General Internal Medicine 09/19/22 Ria Michael Telemetry TechBrand Ambassador 10/20/23
--- OUTSIDE RECORDS SUMMARY | 2024-12-26 13:25 | XMS_ITS | Clinical Summary ---
Author Organization [facility] Address [address] [place] [address] Phone Care Team Providers Care Pocket Machine Operator Name Role Phone Physician, No Pcp Primary Care Provider Unavaila ble Allergies No known active allergies Medications No known medications Active Problems No known active problems Immunizations Name Administration Dates Next Due Td Tetanus diptheria, preser vative free (Tenivac) 7yo and older 01/14/2021 Social History Tobacco Use Types Packs/Day Years Used Date Smoking Tobacco: Light Smoker Smokeless Tobacco: Never Alcohol Use Standard Drinks/Week Comments Never 0 (1 standard drink = 0.6 oz pur e alcohol) Sex and Gender Information Value Date Recorded Sex Assigned at Male 06/24/2024 4:01 PM EST Legal Sex Male 12:06 PM EDT Gender Identity Male 06/24/2024 4:01 PM EST Sexual Orientation Straight 06/24/2024 4: 01 PM EST Obstetrics History Last Filed Vital Signs Vital Sign Reading Time Taken Comments Blood Pressure 120/76 06/24/2024 2:27 PM EST Pulse 84 06/24/2024 2:27 PM EST Temperature 36.6 C (97.9 F) 06/24/2024 2:27 PM EST Respiratory Rate 16 06/24/2024 2:27 PM EST Oxygen Saturation 96% 06/24/2024 2:27 PM EST Inhaled Oxygen Concentration - - Weight 77.1 kg (170 lb) 06/24/2024 2:27 PM EST Height 175.3 cm (5' 9 ) 06/24/2024 2:27 PM EST Body Mass Index 25.1 06/24/2024 2:27 PM EST Plan of Treatment Health Maintenance Due Date Last Done Comments Hepatitis B Vaccines (1 of 3 - 19+ 3-dose series) 02/10/1995 Colorectal Cancer Screening: Colonoscopy 01/14/2021 Social Influencers of Health Screening 01/14/2021 COVID-19 Vaccine ( season) 2024 06/08/2023, 03/09/2022, 09/09/2021, Additional history exists Depression Screening 05/29/2024 Influenza Vaccine (#1) 2025 02/13/2023, 2021 Cholesterol Screening (Lipid Panel) 01/29/2029 01/30/2024 DTaP,Tdap,and Td Vaccines (4 - Td or Tdap) 11/13/2031 11/12/2021, 01/14/2021, 11/20/2018 Pneumococcal Vaccine: Pediatrics (0 to 5 Years) and At-Risk Patients (6 to 49 Years) Completed 06/08/2023 HIV Screening Completed 01/30/2024, 01/14/2021 Hepatitis C Screening Completed 01/30/2024, 021 HIB Vaccines Aged Out No longer eligi [...] on patient's age to complete this topic MMR Vaccines Aged Out No longer eligi ble based on patient's age to complete this topic Meningococcal ACWY Vaccine Aged Out N o longer eligible based on patient's age to complete this topic Meningococcal B Vaccine Aged Out No l onger eligible based on patient's age to complete this topic RSV Immunization Patients Under 20 months Aged Out No longer eligible based on patient's age to complete this topic Varicella Vaccines Aged Out No longer eligible based on patient's age to complete this topic Procedures Procedure Name Priority Date/Time Associated Diagnosis Comments HEPATITIS C ANTIBODY, SCREEN, WITH REFLEX TO PCR STAT 01/14/2021 12:59 PM EDT RAPID HIV 1 AND HIV 2 ANTIBODY SCREEN STAT 01/14/2021 12:59 PM EDT from Last 3 Months or Most Recently Relevant to Health Maintenance Results * Hepatitis C antibody screen, reflex to molecular study (01/14/2021 12:59 PM EDT) [facility] Hepatitis C Antibody Negative/ Nonreacti ve Negative/ Nonreacti ve LAB CHEMISTRY METHOD 01/14/2021 6:39 PM EDT [facility] Comment: 1. These results were obtained with Advia Centaur HCV assay. Results obtained from other manufacturers' methods may not be used interchangeably. April 2008. 2. POSITIVE / REACTIVE Reported to the [facility]. Quantitative HCV RNA by PCR will follow. 3. LOW POSITIVE/LOW REACTIVITY Confirmation by Quantitative HCV RNA by PCR will follow. 4. NEGATIVE / NONREACTIVE result is normal. 5. [facility] requires all positive results to include an ALT. This test will reflex. No charge. Blood Venous blood specimen / Unknown Venipuncture / Unknown 01/14/2021 12:59 PM EDT 01/14/2021 1:09 PM EDT Sh[facility] LAB BLOOD ORDERABLES Final R esult [facility] [address] [place] [address] * Rapid HIV 1 and HIV 2 antibody screen (01/14/2021 12:59 PM EDT) [facility] Rapid HIV 1&2 Negative Negative 01/14/2021 1:38 PM EDT [facility] Blood Venous blood specimen / Unknown Venipuncture / Unknown 01/14/2021 12:59 PM EDT 01/14/2021 1:09 PM EDT Narrative [facility] - 01/14/2021 1:38 PM EDT FINAL REPORT Test performed using Ora-Quick methodology. This method is a qualitative immunoassay. Sensitivity of method is 99.6 %. Specificity is 100 % This result should be used in conjunction with clinical history, including maternal HIV risk factors, in determining a woman/infant's need to initiate zidovudine prophylaxis. This HIV testing is for screening only. Results obtained by different assay methods should not be used interchangeably. Results from different test methods may provide different resistance interpretations. This information has been disclosed to you from confidential records which are protected by state law. State law prohibits you from making any further disclosure of this information without the specific written consent of the person to whom it pertains, or as otherwise permitted by law. Any unauthorized further disclosure in violation of state law may result in a fine or care home sentence or both. A general authorization for the release of medical or other information is not, except in limited circumstances set forth in this part, sufficient authorization for further disclosure. Disclosure of confidential HIV information that occurs as the result of a general authorization for the release of medical of other information will be in violation of the state law and may result in a fine or a care home sentence or both. us Sh[facility] LAB BLOOD ORDERABLES Final R esult Performing Organization Address City/State/[facility] Co de Phone Number [facility] [address] [place] [address] from Last 3 Months or Most Recently Relevant to Health Maintenance Insurance MEDICAID - [place] on file Care Teams Pocket Machine Operator Relationship Specialty Start Date End Date Physician, No Pcp PCP - General 06/24/24
[2024-12-26 18:19] LABS: Hemoglobin A1C 132.5423 umol/L; Total Hemoglobin (HGBA1C) 3881.4427 umol/L
[2024-12-26 18:24] LABS: Hematocrit 43.6 % (42.0-52.0); Hemoglobin 14.9 g/dl (14.0-18.0); Mean Corpuscular HGB Conc 34.2 g/dl (31.0-36.0); Mean Corpuscular Hemoglobin 31.5 pg (27.0-33.0); Mean Corpuscular Volume 92.2 fL (80.0-98.0); NRBC Abs Auto 0.000 X10*3/uL (0.0-0.012); NRBC Pct Auto 0.0 /100WBC (0.0-0.2); Platelet Count 235 X10*3/uL (160-400); Red Blood Count 4.73 X10*6/uL (4.60-5.80); White Blood Count 5.9 X10*3/uL (4.8-10.8)
[2024-12-26 18:32] LABS: Alanine Aminotransferase 30 U/L (0-40); Albumin Level 4.2 g/dL (3.5-5.0); Alkaline Phosphatase 65 U/L (39-117); Anion Gap 14 (12-20); Aspartate Amino Transferase 32 U/L (5-37); Blood Urea Nitrogen 9 mg/dL (9-16); Calcium 9.1 mg/dL (8.4-10.2); Carbon Dioxide 28 mmol/L (22-29); Chloride 105 mmol/L (96-108); Cholesterol 167 mg/dL (<200); Estimated Glomerular Filt Rate > 60; HDL Cholesterol 63 mg/dL (>40); Potassium 3.9 mmol/L (3.3-5.1); Sodium 143 mmol/L (135-145); Total Protein 7.0 g/dL (6.5-8.0); Triglycerides 49 mg/dL (<150)
[2024-12-26 19:01] LABS: Folate 10.9 ng/mL (> or = 4.0); Vitamin B12 441 pg/mL (200-900)
[2024-12-27 03:37] LABS: Syphilis Screen Nonreactive (Nonreactive)
[2024-12-27 03:43] LABS: HBS Num1 114.19 mIU/mL (0-7.99); HBc Num1 0.08 S/CO (0.00-0.79); HBsAGNum1 0.38 S/CO (0.00-0.99); HIV Num 1 0.05 S/CO (0.00-0.99); Hepatitis B Surface Antigen Negative (Negative); ~HepC Num1 0.11 S/CO (0.00-0.79); ~Hepatitis B Surface Antibody REACTIVE (Nonreactive); ~Hepatitis C Antibody Nonreactive (Nonreactive)
[2024-12-27 07:54] LABS: CT PCR Urine NOT DETECTED (Not Detect.); NG PCR Urine NOT DETECTED (Not Detect.)
== END 2024-12-26 13:15 | disposition home or self-care (01) ==
LOC: HO.HHCL 13:14
PROVIDERS: PCP Student in an Organized Health Care Education/Training Program; Visit Provider Student in an Organized Health Care Education/Training Program
DX: Z00.00 Encounter for general adult medical examination without abnormal findings (principal); Z11.3 Encounter for screening for infections with a predominantly sexual mode of transmission; Z11.4 Encounter for screening for human immunodeficiency virus [HIV]; Z11.59 Encounter for screening for other viral diseases
CPT/HCPCS: 36415; 80053; 80061; 82607; 82746; 83036; 84443; 85027; 86704; 86706; 86780; 86803; 87340; 87389; 87491; 87591

== ENCOUNTER 2025-01-02 14:16 | Outpatient (AMB) | payer MEDICAID, SELFPAY ==
--- OUTSIDE RECORDS SUMMARY | 2025-01-02 14:19 | XMS_ITS | Clinical Summary ---
Author Organization [facility] Address [address] [place] [address] Phone Care Team Providers Care Coal Carrier Name Role Phone Physician, No Pcp Primary [...] to molecular study (01/14/2021 12:59 PM EDT) [facility] Hepatitis C Antibody Negative/ Nonreacti ve Negative/ Nonreacti ve LAB CHEMISTRY METHOD 01/14/2021 6:39 PM EDT [facility] Comment: 1. These results were obtained with Advia Centaur HCV assay. Results obtained from other manufacturers' methods may not be used interchangeably. April 2008. 2. POSITIVE / REACTIVE Reported to the [facility]. Quantitative HCV RNA by PCR will follow. 3. LOW POSITIVE/LOW REACTIVITY Confirmation by Quantitative HCV RNA by PCR will follow. 4. NEGATIVE / NONREACTIVE result is normal. 5. [facility] requires all positive results to include an ALT. This test will reflex. No charge. Blood Venous blood specimen / Unknown Venipuncture / Unknown 01/14/2021 12:59 PM EDT 01/14/2021 1:09 PM EDT [facility] LAB BLOOD ORDERABLES Final R esult [facility] [address] [place] [address] * Rapid HIV 1 and HIV 2 antibody screen (01/14/2021 12:59 PM EDT) [facility] Rapid HIV 1&2 Negative Negative 01/14/2021 1:38 PM EDT [facility] Blood Venous blood specimen / Unknown Venipuncture / Unknown 01/14/2021 12:59 PM EDT 01/14/2021 1:09 PM EDT Narrative [facility] - 01/14/2021 1:38 PM EDT FINAL [...] law may result in a fine or fpc sentence or both. A general authorization for [...] may result in a fine or a fpc sentence or both. us Shital [facility] LAB BLOOD ORDERABLES Final R esult Performing Organization Address City/State/[place] Co de Phone Number [facility] [address] [place] [address] from Last 3 Months or Most Recently Relevant to Health Maintenance Insurance MEDICA[place] - [place] on file Care Teams Coal Carrier Relationship Specialty Start Date End Date Physician, No Pcp PCP - General 06/24/24
--- OUTSIDE RECORDS SUMMARY | 2025-01-02 14:20 | XMS_ITS | Clinical Summary ---
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 Name Role Phone Cat Amaya MD Primary [...] to orthopedic to further evaluate -pt will coverage specialist rn to f up about this as well [...] be contacted--I gave today written info of [facility] for pt to call and schedule apt [...] Encounters Date Type Department Care Team Description 12/26/2024 Orders Only [facility] MEDICINE [address], [place] [address] Cat Amaya MD 12/23/2024 Telephone [facility] MEDICINE [address] [place] [address] Cat Amaya MD 12/12/2024 Refill [facility] [address] [place] [address] Cat Amaya MD 11/28/2024 Telephone [facility] MED[facility]INE [address], [place] [address] Cat Amaya MD Call Back Request 11/20/2024 Refill [facility] MED[facility] [address], [place] [address] Cat Amaya MD 11/05/2024 Telephone [facility] MEDICINE [address] [place] [address] Cat Amyaa MD Referral 11/05/2024 Refill [facility] [address], [place] [address] Cat Amaya MD 10/29/2024 Results Follow-Up [facility] [address] [place] [address] Cat Amaya MD XR Clavicle Right 10/29/2024 Orders Only [facility] [place] [address] Cat Amaya MD Right hand pain (Primary Dx) 10/29/2024 Telephone [facility] [place] [address] Cat Amaya MD Call Back Request 10/29/2024 Telephone [facility] MEDICINE [address] [place] [phone] Cat Amaya MD FYI 10/28/2024 1:15 PM EDT Office Visit [address] [address] Cat Amaya MD Memory loss (Primary Dx); Scrotal nodule; Synovial cyst; Lumbar back pain; Loss of job; Homeless; Pain of right clavicle; Annual physical exam; Gastric ulcer without hemorrhage or perforation, unspecified chronicity; Healthcare maintenance; Moderate depressive disorder; Left shoulder pain, unspecified chronicity; Right hand pain; Housing insecurity; Tobacco abuse 10/28/[address] [address] Cat Amaya MD 10/28/2024 Travel 10/25/[address] [address] Lauro Srivastava [place] CHART PREP 10/18/2024 Patient Outreach [facility] [address] [place] [address] Cat Amaya MD Pre-visit Planning ([facility] unable to reach [facility]) from Last 3 Months Immunizations [...] with others, in a hotel, in a halfway, living outside on the street, on a [...] 10/28/2024 1:15 PM EDT Plan of Treatment Health Maintenance Due Date [...] Vaccines (1 of 2) 02/10/2026 Lipid Panel 12/26/2029 12/26/2024, 09/0 07/2023, 09/21/2022, Additional history exists DTaP/Tdap/Td Vaccines (4 - Td or Tdap) 11/13/2031 11/12/2021, 01/14/2021, 11/20/2018 Colonoscopy 08/01/2032 08/01/2022 Colorectal Cancer Screening 08/01/2032 RSV Patients and Patients Aged 60 years or older (1 - 1-dose 75+ series) 02/10/2051 Pneumococcal Vaccine: Pediatrics (0 to 5 Years) and At-Risk Patients (6 to 49) Years Completed 06/08/2023 COVID-19 Vaccine Completed 07/19/2024, 03/2024, 03/09/2022, Additional history exists HIV Screening Completed 12/26/2024, 0 07/2023, 09/21/2022, Additional history exists Hepatitis C Screening Completed 12/26/2024 , 01/30/2024, 09/21/2022 HIB Vaccines Aged Out No longer eligi [...] Procedure Name Priority Date/Time Associated Diagnosis Comments CHLAMYDIA/TRICHOMONAS/ NEISSERIA GONORRHOEAE, PCR, URINE Routine 12/26/2024 1:25 PM EDT VITAMIN B12/FOLATE, SERUM PANEL Routine 12/26/2024 1:25 PM EDT Annual physical exam TSH W/REFLEX TO FT4 Routine 12/26/2024 1 :25 PM EDT Annual physical exam SYPHILIS SCREEN Routine 12/26/2024 1:25 PM EDT Annual physical exam LIPID PANEL, STANDARD Routine 12/26/2024 1:25 PM EDT Annual physical exam HIV 1/2 ANTIGEN/ANTIBODY, FOURTH GENERATION W/RFL Routine 12/26/2024 1:25 PM EDT Annual physical exam HEPATITIS C AB W/REFL TO HCV RNA, QN, PCR Routine 12/26/2024 1:25 PM EDT Annual physical exam HEPATITIS B SURFACE ANTIGEN, EIA Routine 12/26/2024 1:25 PM EDT Annual physical exam HEPATITIS B SURFACE ANTIBODY, QUALITATIVE Routine 12/26/2024 1:25 PM EDT Annual physical exam HEPATITIS B CORE AB TOTAL Routine 12/26/2024 1:25 PM EDT Annual physical exam HEMOGLOBIN A1C Routine 12/26/2024 1:25 PM EDT Annual physical exam COMPREHENSIVE METABOLIC PANEL Routine 12/26/2024 1:25 PM EDT Annual physical exam CBC Routine 12/26/2024 1:25 PM EDT Annual physical exam XR CLAVICLE RIGHT Routine 10/29/2024 1:3 4 PM EDT Pain of right clavicle HM COLONOSCOPY Routine 08/01/2022 3:27 PM EST from Last 3 Months or Most Recently Relevant to Health Maintenance Results * Chlamydia/Trichomonas/Neisseria gonorrhoeae, PCR, Urine (12/26/2024 1:25 PM EDT) CT PCR, Urine NOT DETECTED Not Detect. [facility] Comment:A not detected test result does not exclude the possibilityof infection because test results can be affected byimproper specimen collection, concurrent antibiotic therapy,or the number of organisms in the specimen which may bebelow the sensitivity of the test. As with many diagnostictests, results from the Xpert CT/NG assay should beinterpreted in conjunction with other laboratory andclinical data available to the clinician.The Xpert CT/NG assay should not be used for the evaluationof suspected sexual abuse or for other medico-legalindications. Additional testing is recommended in anycircumstance when false positive or false negative resultscould lead to adverse medical, social or psychologicalconsequences. NG PCR, Urine NOT DETECTED Not Detect. [facility] Comment:A not detected test result does not exclude the possibilityof infection because test results can be affected byimproper specimen collection, concurrent antibiotic therapy,or the number of organisms in the specimen which may bebelow the sensitivity of the test. As with many diagnostictests, results from the Xpert CT/NG assay should beinterpreted in conjunction with other laboratory andclinical data available to the clinician.The Xpert CT/NG assay should not be used for the evaluationof suspected sexual abuse or for other medico-legalindications. Additional testing is recommended in anycircumstance when false positive or false negative resultscould lead to adverse medical, social or psychologicalconsequences. 12/26/2024 1:25 PM EDT 12/26/2024 5:37 PM EDT Cat Rodriguez MD LAB URINE ORDERAB LES Final Result Performing Organization Address [facility]/ZIP Co de Phone Number [facility] [address] [place] [phone] * Syphilis Screen (12/26/2024 1:25 PM EDT) Syphilis Screen Nonreactive Nonreactive [facility] Blood 12/26/2024 1:25 PM EDT 12/26/2024 5:51 PM EDT us Cat Rodriguez MD LAB BLOOD ORDERAB LES Final Result Performing Organization Address [facility] Co de Phone Number [facility] [address] [place] [phone] * Vitamin B12 (Cobalamin) and Folate Panel, Serum (12/26/2024 1:25 PM EDT) Vitamin B12 441 200 - 900 pg/mL [facility] Comment:NORMAL 200-900 PG/ML INDETERMINATE 160-199 PG/ML DEFICIENT < 160 PG/ML Folate 10.9 > or = 4.0 ng/mL [facility] Comment:Reference Values:> o r = 4.0 ng/mL< 4.0 ng/mL suggests folate deficiency Methotrexate, aminopterin and folinic acid(leucovorin) are chemotherapeutic agents whose molecularstructures are similar to folate; therefore, the Architectfolate assay cannot be used for patients using these drugs. Blood 12/26/2024 1:25 PM EDT 12/26/2024 5:51 PM EDT us Cat Rodriguez MD LAB BLOOD ORDERAB LES Final Result Performing Organization Address [facility]/ZIP Co de Phone Number [facility] [address] [place] [phone] * TSH with Reflex to Free T4 (12/26/2024 1:25 PM EDT) TSH reflex Free T4 0.98 0.32 - 4.0 uIU/mL [facility] Blood 12/26/2024 1:25 PM EDT 12/26/2024 5:51 PM EDT us Cat Rodriguez MD LAB BLOOD ORDERAB LES Final Result Performing Organization Address [facility] Co de Phone Number [facility] [address] [place] [phone] * Hepatitis C Antibody with Reflex to HCV, RNA, Quantitative, Real-Time PCR (12/26/2024 1:25 PM EDT) Pathologist [facility] Hepatitis C Antibody Nonreactive Nonreactive [facility] Comment:Antibodies to HCV no t detected; does not exclude early acuteHCV infection. Blood Venous blood specimen / Unknown 12/26/2024 1:25 PM EDT 12/26/2024 5:51 PM EDT us Cat Rodriguez MD LAB BLOOD ORDERAB LES Final Result Performing Organization Address [facility] Co de Phone Number [facility] [address] [place] [phone] * Hepatitis B surface antigen, EIA (12/26/2024 1:25 PM EDT) Pathologist [facility] Hepatitis B Surface Ag Negative Negative [facility] Blood Venous blood specimen / Unknown 12/26/2024 1:25 PM EDT 12/26/2024 5:51 PM EDT us Cat Rodriguez MD LAB BLOOD ORDERAB LES Final Result Performing Organization Address City/[facility]/ZIP Co de Phone Number [facility] [address] [place] [phone] * Hepatitis B Core Antibody, Total (12/26/2024 1:25 PM EDT) Hepatitis B Core Antibody Nonreactive Nonreactive [facility] Blood Venous blood specimen / Unknown 12/26/2024 1:25 PM EDT 12/26/2024 5:51 PM EDT us aCt Rodriguez MD LAB BLOOD ORDERAB LES Final Result Performing Organization Address [facility] Co de Phone Number [facility] [address] [place] [phone] * HIV-1/2 Antigen and Antibodies, Fourth Generation, with Reflexes (12/26/2024 1:25 PM EDT) Pathologist [facility] HIV AB/AG Nonreactive Nonreactive [facility] Comment:HIV-1 p24 Ag and/or HIV-1/HIV-2 Ab not detected.A test result that is nonreactive does not exclude thepossibility of exposure to or infection with HIV-1 and/orHIV-2. Nonreactive results in this assay for individualswith prior exposure to HIV-1 and/or HIV-2 may be due toantigen and antibody levels that are below the limit ofdetection of this assay.The [employer] HIV Ag/Ab Combo assay result andsupplemental assay results should be interpreted inconjunction with the patient's clinical presentation,history and other laboratory results. If the results areinconsistent with clinical evidence, additional testing issuggested to confirm the result. Blood Venous blood specimen / Unknown 12/26/2024 1:25 PM EDT 12/26/2024 5:51 PM EDT us Cat Rodriguez MD LAB BLOOD ORDERAB LES Final Result Performing Organization Address [facility] Co de Phone Number [facility] [address] [place] [phone] * Hepatitis B Surface Antibody, Qualitative (12/26/2024 1:25 PM EDT) Pathologist [facility] ~Hepatitis B Surface Antibody REACTIVE Nonreactive [facility] Comment:REACTIVE: > 11.99 mI U/mL Blood Venous blood specimen / Unknown 12/26/2024 1:25 PM EDT 12/26/2024 5:51 PM EDT us Cat Rodriguez MD LAB BLOOD ORDERAB LES Final Result Performing Organization Address [facility] Co de Phone Number [facility] [address] [place] [phone] * CBC (12/26/2024 1:25 PM EDT) [facility] White Blood Count 5.9 4.8 - 10.8 X10*3/uL [facility] Red Blood Count 4.73 4.60 - 5.80 X10*6/uL [facility] Hemoglobin 14.9 14.0 - 18.0 g/dl [facility] Hematocrit 43.6 42.0 - 52.0 % [facility] Mean Corpuscular Volume 92.2 80.0 - 98.0 fL [facility] Mean Corpuscular Hemoglobin 31.5 27.0 - 33.0 pg [facility] Mean Corpuscular HGB Conc 34.2 31.0 - 36.0 g/dl [facility] Red Cell Distribution Width 12.8 11.0 - 16.0 % [facility] Platelet Count 235 160 - 400 X10*3/uL [facility] Mean Platelet Volume 11.4 9.4 - 12.4 fL [facility] NRBC Pct Auto 0.0 0.0 - 0.2 /100WBC [facility] NRBC Abs Auto 0.000 0.0 - 0.012 X10*3/uL [facility] Blood Venous blood specimen / Unknown 12/26/2024 1:25 PM EDT 12/26/2024 5:51 PM EDT us Cat Rodriguez MD LAB BLOOD ORDERAB LES Final Result Performing Organization Address City/[facility]/ZIP Co de Phone Number [facility] [address] [place] [phone] * Hemoglobin A1c (12/26/2024 1:25 PM EDT) Hemoglobin A1c 5.3 <6.0 % [facility] Comment:Hemoglobin A1C Refer ence Range Adults: 4.8 - 6.0 % Non diabetic: < 6.0 % Goal: < 7.0 %Additional Action Suggested: > 8.0 %Note: Hemoglobin A1c results are invalid for patients with abnormal amounts of HbF. Blood transfusions may impact the HbA1c concentration in the patient sample. Estimated Average Glucose 105 mg/dL [facility] Comment:eAG = Estimated ave rage glucose which is %A1C expressed asaverage glucose, using the formula of the X5A-JsknxzxRkzmgnr Glucose study (ADAG), Diabetes Care, Vol.31,#8,Dec. 2007 Blood Venous blood specimen / Unknown 12/26/2024 1:25 PM EDT 12/26/2024 5:51 PM EDT us Cat Rodriguez MD LAB BLOOD ORDERAB LES Final Result Performing Organization Address City/[facility]/ZIP Co de Phone Number [facility] [address] [place] [phone] * Lipid Panel, Standard (12/26/2024 1:25 PM EDT) Triglycerides 49 <150 mg/dL [facility] Comment:Desirable Triglyceri de: less than 150 mg/dLBorderline High Triglyceride 150-199 mg/dLHigh Triglyceride: 200-499 mg/dLVery High Triglyceride: greater than or equal to 5OO mg/dL Cholesterol 167 <200 mg/dL [facility] Comment:Desirable Cholestero l: less than 200 mg/dLBorderline High Cholesterol: 200-239 mg/dLHigh Cholesterol: greater than 239 mg/dL LDL Cholesterol Calculated 95 <100 mg/dL [facility] Comment:Desirable LDL: less than 100 mg/dLNear Optimal/Above Optimal LDL: 110- 129 mg/dLBorderline High LDL: 130-159 mg/dLHigh LDL: 160-189 mg/dLVery High LDL: greater than or equal to 190 mg/dL HDL Cholesterol 63 >40 mg/dL [facility] Comment:Desirable HDL: great er than 40 mg/dL Note: This HDL assay may give artificially low results in patients with liver disease. Blood Venous blood specimen / Unknown 12/26/2024 1:25 PM EDT 12/26/2024 5:51 PM EDT us Cat Rodriguez MD LAB BLOOD ORDERAB LES Final Result [facility] [address] [place] [phone] * Comprehensive Metabolic Panel (12/26/2024 1:25 PM EDT) Sodium 143 135 - 145 mmol/L [facility] Potassium 3.9 3.3 - 5.1 mmol/L [facility] Chloride 105 96 - 108 mmol/L [facility] Carbon Dioxide 28 22 - 29 mmol/L [facility] Anion Gap 14 12 - 20 [facility] Urea Nitrogen (BUN) 9 9 - 16 mg/dL [facility] Creatinine, Serum 0.76 0.5 - 1.4 mg/dL [facility] Estimated Glomerular Filt Rate >60 [facility] Comment:Chronic Kidney Disea se: Estimated GFR < 60 mL/min/1.61e8Vvalak Kidney Disease: Estimated GFR < 15 mL/min/1.73m2 Glucose 71 60 - 115 mg/dL [facility] Calcium 9.1 8.4 - 10.2 mg/dL [facility] Bilirubin, Total 0.7 0.0 - 1.0 mg/dL [facility] Aspartate Amino Transferase 32 5 - 37 U/L [facility] Alanine Aminotransferase 30 0 - 40 U/L [facility] Total Protein 7.0 6.5 - 8.0 g/dL [facility] Albumin Level 4.2 3.5 - 5.0 g/dL [facility] Alkaline Phosphatase 65 39 - 117 U/L [facility] Blood Venous blood specimen / Unknown 12/26/2024 1:25 PM EDT 12/26/2024 5:51 PM EDT Cat Rodriguez MD LAB BLOOD ORDERAB LES Final Result Performing Organization Address City/State/[facility] Co de Phone Number [facility] [address] [place] [phone] * XR Clavicle Right (10/29/2024 1:34 PM EDT) Anatomical Region Laterality Modality Body, Clavicle Right Radiographic Bel ging 10/29/2024 1:34 PM EDT Narrative 10/29/2024 1:56 PM EDT [address] [address] XRay Report Signed Patient: Tal Cartwright MR#: [id number] : 1975 Acct:[id number] Age/Sex: 49 / M ADM Date: 10/29/24 Loc: HO.HHCX Attending Dr: Cat Rodriguez MD Ordering Physician: Cat Amaya MD Date of Service: 10/29/24 Procedure(s): XR clavicle RT Accession Number(s): [id number] cc: Cat Amaya MD EXAMINATION: XR CLAVICLE, [...] 10/29/24 1353 DD/ 1334 TD/TT: 10/29/24 1342 Burnishing Machine Operator: Procedure Note Donotuseinterpreter, Image - 10/29/2024 [place] [address] XRay Report Signed Patient: Rekha Cartwright#: [id number] : 1975Acct:[id number] Age/Sex: 49 / MADM Date: 10/29/24 Loc: HO.HHCX Attending Dr: Cat Rodriguez MD Ordering Physician: Cat Amaya MD Date of Service: 10/29/24 Procedure(s): XR clavicle RT Accession Number(s): [id number] cc: Cat Amaya MD EXAMINATION: XR CLAVICLE, [...] 01:53 PM EDT RP Dictated By: Uziel Preito MD Signed By: <Electronically signed by Uziel Prieto MD in OV> 10/29/24 1353 DD/ 1334 TD/TT: 10/29/24 1342 Burnishing Machine Operator: Cat Rodriguez MD IMG XR PROCEDURES Final Result * Hm Colonoscopy (08/01/2022 3:27 PM EST) us Historical Provider HEALTH MAINTENANCE Final Result from Last 3 Months or Most Recently Relevant to Health Maintenance Insurance [facility] C3 Care Teams Partition Assembly Machine Operator Relationship Specialty Start Date End Date Cat Amaya MD [address] [place] [phone] PCP - General Internal Medicine 09/19/22 Ria Michael Steward/Stewardess Chief Cargo VesselHoliday Detector Operator 10/20/23
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
[2025-01-02 14:25] VITALS: BMI 24.7
== END 2025-01-02 14:38 | disposition home or self-care (01) ==
LOC: HO.HOS 14:17
PROVIDERS: PCP Student in an Organized Health Care Education/Training Program; Visit Provider Physician Assistant
DX: S43.61XA Sprain of right sternoclavicular joint, initial encounter (principal)
CPT/HCPCS: 99213

== ENCOUNTER → 2025-01-02 14:16 | Outpatient (BNVA) | payer MEDICAID, SELFPAY | PROVIDERS: PCP Student in an Organized Health Care Education/Training Program; Visit Provider Physician Assistant | DX: M25.511 Pain in right shoulder (principal); S43.61XA Sprain of right sternoclavicular joint, initial encounter | CPT/HCPCS: 99212 ==

== ENCOUNTER 2025-03-11 10:51 | Outpatient (REF) | payer MEDICAID, SELFPAY ==
--- OUTSIDE RECORDS SUMMARY | 2025-03-11 09:45 | XMS_ITS | Encounter Summary ---
Author Organization [employer] Address [address] [facility] [address] [place] [address] Care Team Providers Care Serging Machine Operator Automatic Name Role Phone Cat Amaya MD Primary Care Pro vider Reason for Referral * Consultation (STAT) - Pending Review Specialty Diagnoses / Procedures Referred By Juliana pepper Referred To Contact Case Management Diagnoses Housing insecurity Cat Amaya MD [address] [place] [address] Phone: tel: fax: Referral ID Status Reason Start Date Expiration Date Visits Requested Visits Authorized [id number] Pending Review Specialty Services Required 03/11/2026 1 1 Encounter Details Date Type Department Care Team (Late st Contact Info) Description 03/11/2025 9:45 AM EDT Office Visit [facility] [address] [place], [place] [phone] Cat Amaya MD [address] [place], [place] [phone] Housing insecurity (Primary Dx); Dietary counseling; Exercise counseling; Pain of right clavicle; Encounter for immunization Social History Tobacco Use Types Packs/Day Years [...] 9:55 AM EDT documented in this encounter Plan of Treatment Upcoming Encounters Date Type Department Care Team (Late st Contact Info) Description 05/26/2025 3:30 PM EST Clinical Support [facility] [address] [place] [address] Scheduled Orders Name Type Priority Associated Diagnoses Orde r Schedule XR Clavicle Right Imaging Routine Pain of right clavicle Expected: 03/11/2025, Expires: 03/11/2026 Scheduled Referrals Name Type Priority Associated Diagnoses Order Schedule Referral to Case Management Outpatient Referral STAT Housing insecurity Expected: 03/11/2025 (Approximate), Expires: 03/11/2026 documented as of this encounter Visit Diagnoses Diagnosis Housing insecurity- Primary Dietary counseling Dietary surveillance and counseling Exercise counseling Pain of right clavicle Encounter for immunization documented in this encounter Additional Health Concerns Assessment Noted Time PHQ-9 Depression Total Score: 21 025 2:24 PM EDT documented as of this encounter Care Teams Serging Machine Operator Automatic Relationship Specialty Start Date End Date Cat Amaya MD [address] [place] [address] PCP - General Internal Medicine 09/19/22 Ria Michael Librarian HelperConstruction Carpenters Helper 10/20/23 documented as of this encounter
--- OUTSIDE RECORDS SUMMARY | 2025-03-11 12:57 | XMS_ITS | Encounter Summary ---
Author Organization [employer] Address [address] [facility] [address] [place] [address] Care Team Providers Care Automation Controls Engineer Name Role Phone Cat Amaya MD Primary Care Pro vider Encounter Details Date Type Department Care Team (Latest Contact Info) Description 03/11/2025 Travel Social History Tobacco Use Types Packs/Day Years Used Date Smoking Tobacco: Some Days Cigarettes Passive Smoke Exposure: Current Smokeless Tobacco: Never Comments:Since 12 y of age - socially 2<--------10 cigarrets in a week Alcohol Use [...] with others, in a hotel, in a correction, living outside on the street, on a [...] AM EDT documented as of this encounter Plan of Treatment Upcoming Encounters Date Type Department Care Team (Late st Contact Info) Description 05/26/2025 3:30 PM EST Clinical Support [facility] [address] [place] [phone] documented as of this encounter Visit Diagnoses Not on filedocumented in this encounter Additional Health Concerns Assessment Noted Time PHQ-9 Depression Total Score: 21 025 2:24 PM EDT documented as of this encounter Care Teams Automation Controls Engineer Relationship Specialty Start Date End Date Cat Amaya MD [address] [place] [address] PCP - General Internal Medicine 09/19/22 Ria iMchael Motor OverhaulerMiddle School Counselor 10/20/23 documented as of this encounter
--- OUTSIDE RECORDS SUMMARY | 2025-03-11 12:57 | XMS_ITS | Encounter Summary ---
Author Organization [employer] Address [address] [facility] [address] [place] [address] Care Team Providers Care Jewelry Bench Molder Name Role Phone Cat Amaya MD Primary Care Pro vider Reason for Visit * Reason Comments Care Coordination CHW outreach for SDO H housing search-referral completed Encounter Details Date Type Department Care Team (Latest Contact Info) Description 03/11/2025 Patient Outreach [facility] [address] [place] [address] Cat Amaya MD [address] [place] [address] Care Coordination (CHW outreach for SDOH housing search-referral completed ) Social History Tobacco Use Types Packs/Day Years [...] with others, in a hotel, in a care home, living outside on the street, on a [...] AM EDT documented as of this encounter Progress Notes * Vimal Thao - 03/11/2025 12:12 PM EDT [facility] requesting assistance with SDOH. Patient's name and were confirmed. CHW Vimal Thao met with patient in private space. CHW performed SDOH screen and patient screened positive for housing insecurities. Patient states is staying with her friend butis searching for her own apartment. CHW referral patient to the list of application mail out to heraddress on file. Patient verbalizes understanding, and able to agree with plan to follow up herself. Patient educated on extended clinic hours on Mondays through Wednesdays, and Walk-In Urgent Care Located in [facility]. Patient provided with after-hours line for [facility], , which offer night time triage service and option to transfer to contact lens polisher provider if needed. documented in this encounter Plan of Treatment Upcoming Encounters Date Type Department Care Team (Late st Contact Info) Description 05/26/2025 3:30 PM EST Clinical Support [facility] [address] [place] [address] documented as of this encounter Visit Diagnoses Not on filedocumented in this encounter Additional Health Concerns Assessment Noted Time PHQ-9 Depression Total Score: 21 025 2:24 PM EDT documented as of this encounter Care Teams Jewelry Bench Molder Relationship Specialty Start Date End Date Cat Amaya MD [address] [place] [address] PCP - General Internal Medicine 09/19/22 Ria Michael Seam CloserEqual Opportunity Counselor 10/20/23 documented as of this encounter
--- OUTSIDE RECORDS SUMMARY | 2025-03-11 12:58 | XMS_ITS | Encounter Summary ---
Author Organization [employer] Address [address] [facility] 7t [place] [address] Care Team Providers Care Bioinformatics Computer Scientist Name Role Phone Cat Amaya MD Primary Care Pro vider Reason for Visit * Reason Onset Date Comments Referral 05/18/2023 Encounter Details Date Type Department Care Team ([facility] st Contact Info) Description 05/18/2023 Telephone [facility] [address] [place], [place] [phone] Cat Amaya MD [address] [place], [place] [phone] Referral Social History Tobacco Use Types Packs/Day Years Used Date Smoking Tobacco: Some Days Cigarettes Passive Smoke Exposure: Current Smokeless Tobacco: Never Comments:Since 12 y of age - socially -10 cigarrets in a week Alcohol Use Standard Drinks/Week Comments Defer 0 (1 standard drink = 0.6 oz pure alcohol) hx of heavy drinking ,now social Depression Answer Date Recorded Patient Health Questionnaire-9 Score 6 02/13/2023 Housing Stability Answer Date Recorded What is your housing situation today? I have lucius hooper 03/22/[address] you li ve. Do you have problems with any of the following? None of the above 03/22/2023 Food Insecurity Answer Date Recorded Within the past 12 months, y ou worried that your food would run out before you got money to buy more: Never True 03/22/2023 Within the past 12 months,th e food you bought just didn't last and you didn't have enough money to get more: Never True Transportation Answer Date Recorded In the past 12 months, has l ack of transportation kept you from medical appts, meetings, work or from getting things needed for daily living? No 03/22/2023 Utilities Answer Date Recorded In the past 12 months, has t he electric, gas, oil or water company threatened to shut off services in your home? No 03/22/2023 Depression Answer Date Recorded Patient Health Questionnaire-2 Score 0 02/13/2023 Sex and Gender Information Value Date Recorded Sex Assigned at Male 03/28/2022 10:40 AM EDT Legal Sex Male 10:40 AM EDT Gender Identity Male 03/28/2022 10:40 AM EDT Sexual Orientation Straight 03/28/2022 10 :40 AM EDT documented as of this encounter Miscellaneous Notes * Telephone Encounter - Nadja Moreno - 05/18/2023 2:49 PM EST Tc from Melissa with [facility] requesting a change on abdominal ct, Melissa states referral has to say; CT Abdomen Pelvis W Contrast. documented in this encounter Plan of Treatment Upcoming Encounters Date Type Department Care Team (Late st Contact Info) Description 05/26/2025 3:30 PM EST Clinical Support [facility] [address] [place] [phone] documented as of this encounter Visit Diagnoses Not on filedocumented in this encounter Additional Health Concerns Assessment Noted Time PHQ-9 Depression Total Score: 6 02/14/20 23 3:45 PM EDT documented as of this encounter Care Teams Bioinformatics Computer Scientist Relationship Specialty Start Date End Date Cat Amaya MD [address] [place] [address] PCP - General Internal Medicine 09/19/22 Ria Michael Mixing Machine Tender Cork GasketAircraft Servicer 10/20/23 documented as of this encounter
--- OUTSIDE RECORDS SUMMARY | 2025-03-11 12:58 | XMS_ITS | Encounter Summary ---
Author Organization [employer] Address [address] [facility] [address] [place] [address] Care Team Providers Care Orthopedic Nurse Name Role Phone Cat Amaya MD Primary Care Pro vider Encounter Details Date Type Department Care Team (Late st Contact Info) Description 05/20/2024 Orders Only [facility] [address] [place] [address] Provider, MD Ekaterina Social History Tobacco Use Types Packs/Day Years Used Date Smoking Tobacco: Some Days Cigarettes Passive Smoke Exposure: Current Smokeless Tobacco: Never Comments:Since 12 y of age - socially 2<--------10 cigarrets in a week Alcohol Use Standard Drinks/Week Comments Defer 0 (1 standard drink = 0.6 oz pure alcohol) hx of heavy drinking ,now social Depression Answer Date Recorded Patient Health Questionnaire-9 Score 16 10/27/2023 Patient Health Questionnaire-9 Score 16 10/27/2023 Last PHQ-9: Questionnaire Data Not on file 0 10/27/2023 Housing Stability Answer Date Recorded What is your housing situation today? I do not have housing (Staying with others, in a hotel, in a detention, living outside on the street, on a beach, in a car, or in a park 09/14/[address] you li ve. Do you have problems with any of the following? None of the above 09/14/2023 Food Insecurity Answer Date Recorded Within the past 12 months, y ou worried that your food would run out before you got money to buy more: Often true 09/14/2023 Within the past 12 months,th e food you bought just didn't last and you didn't have enough money to get more: Often true Transportation Answer Date Recorded In the past 12 months, has l ack of transportation kept you from medical appts, meetings, work or from getting things needed for daily living? Yes, it has kept me from medical appointments or getting medications. 09/14/2023 Utilities Answer Date Recorded In the past 12 months, has t he electric, gas, oil or water company threatened to shut off services in your home? No 03/22/2023 Depression Answer Date Recorded Patient Health Questionnaire-2 Score 4 10/27/2023 Sex and Gender Information Value Date Recorded Sex Assigned at Male 03/28/2022 10:40 AM EDT Legal Sex Male 10:40 AM EDT Gender Identity Male 03/28/2022 10:40 AM EDT Sexual Orientation Straight 03/28/2022 10 :40 AM EDT documented as of this encounter Plan of Treatment Upcoming Encounters Date Type Department Care Team (Late st Contact Info) Description 05/26/2025 3:30 PM EST Clinical Support [facility] [address] [place] [phone] documented as of this encounter Procedures Procedure Name Priority Date/Time Associated Diagnosis Comments HM COLONOSCOPY Routine 08/01/2022 3:27 PM EST documented in this encounter Results * Hm Colonoscopy (08/01/2022 3:27 PM EST) us Historical Provider HEALTH MAINTENANCE Final Result documented in this encounter Visit Diagnoses Not on filedocumented in this encounter Additional Health Concerns Assessment Noted Time PHQ-9 Depression Total Score: 16 024 2:17 PM EDT documented as of this encounter Care Teams Orthopedic Nurse Relationship Specialty Start Date End Date Cat Amaya MD [address] [place] [id number] PCP - General Internal Medicine 09/19/22 Ria Michael Pressure WelderScaffolder 10/20/23 documented as of this encounter
--- OUTSIDE RECORDS SUMMARY | 2025-03-11 12:58 | XMS_ITS | Encounter Summary ---
Author Organization [employer] Address [address] [facility] [address] [place] [address] Care Team Providers Care Culture Media Laboratory Assistant Name Role Phone Cat Amaya MD Primary Care Pro vider Reason for Visit * Reason Onset Date Comments Appointment Request 04/18/2023 Encounter Details Date Type Department Care Team ([facility] st Contact Info) Description 04/18/2023 Telephone [facility] [address] [place], [place] [phone] Cat Amaya MD [address] [place], [place] [phone] Appointment Request Social History Tobacco Use Types Packs/Day Years [...] * Telephone Encounter - Nadja Moreno - 04/18/2023 8:56 AM EST Tc from pt requesting f/u appt. Last visit; Instructions Follow up in about 4 weeks (around 05/10/2023) for f image,symptoms,depression. documented in this encounter Plan of Treatment Upcoming Encounters Date Type Department Care Team (Late st Contact Info) Description 05/26/2025 3:30 PM EST Clinical Support [facility] [address] [place] [phone] documented as of this encounter Visit Diagnoses Not on filedocumented in this encounter Additional Health Concerns Assessment Noted Time PHQ-9 Depression Total Score: 6 02/14/20 23 3:45 PM EDT documented as of this encounter Care Teams Culture Media Laboratory Assistant Relationship Specialty Start Date End Date Cat Amaya MD [address] [place] [address] PCP - General Internal Medicine 09/19/22 Ria Micheal LandmanConcrete Worker 10/20/23 documented as of this encounter
--- OUTSIDE RECORDS SUMMARY | 2025-03-11 12:58 | XMS_ITS | Encounter Summary ---
Author Organization [employer] Address [address] [facility] [address] [place] [address] Care Team Providers Care Clearing Inspector Name Role Phone Cat Amaya MD Primary Care Pro vider Reason for Visit * Reason Onset Date Comments chart prep 03/10/2025 Encounter Details Date Type Department Care Team ([facility] st Contact Info) Description 03/10/2025 Telephone [facility] [address] [place], [place] [phone] Cat Amaya MD [address] [place], [place] [phone] chart prep Social History Tobacco Use Types Packs/Day Years [...] with others, in a hotel, in a mcc, living outside on the street, on a [...] encounter Miscellaneous Notes * Telephone Encounter - Jaydon Hogan [place] - 03/10/2025 10:03 AM EDT Chart Prep Labs: done Images: not done Referrals: appointment pending Vaccines due: Flu and Hep B Screenings: not applicable Overdue care gaps: Not applicable documented in this encounter Plan of Treatment Upcoming Encounters Date Type Department Care Team (Late st Contact Info) Description 05/26/2025 3:30 PM EST Clinical Support [facility] [address] [place] [address] documented as of this encounter Visit Diagnoses Not on filedocumented in this encounter Additional Health Concerns Assessment Noted Time PHQ-9 Depression Total Score: 21 025 2:24 PM EDT documented as of this encounter Care Teams Clearing Inspector Relationship Specialty Start Date End Date Cat Amaya MD [address] [place] [address] PCP - General Internal Medicine 09/19/22 Ria Michael Ebd TeacherBall Mill Operator 10/20/23 documented as of this encounter
--- OUTSIDE RECORDS SUMMARY | 2025-03-11 12:58 | XMS_ITS | Clinical Summary ---
Author Organization [employer] Address [address] [facility] [address] [place] [address] Care Team Providers Care Statistical Machine Servicer Name Role Phone Cat Amaya MD Primary Care Pro vider Allergies Active Allergy Reactions Criticality Noted Date Comments Oxcarbazepine Rash Low 10/28/2024 Medications * This document contains information received from the source organization and may not represent a complete record from that organization. hydrOXYzine HCl (Atarax) 10 MG tablet TAKE 1 TABLET BY MOUTH AT BEDTIME IF NEEDED FOR ANXIETY (INSOMNIA) 60 tablet 10/29/19 25 Active ARIPiprazole (Abilify) 5 MG tablet TAKE 1 TABLET BY MOUTH EVERY DAY IN THE MORNING 30 tablet 03/04/20 25 Active nicotine polacrilex (Nicorelief) 2 MG gum Chew 1 each (2 mg) if needed for smoking cessation. 100 each 2 03/11/20 25 025 Active acetaminophen (Tylenol) 500 MG tablet Take 2 tablets (1,000 mg) by mouth every 6 (six) hours if needed for moderate pain or fever for up to 25 doses. 30 tablet 2 03/11/20 25 Active Diclofenac Sodium 1 % gel APPLY 2 GRAMS TOPICALLY TWICE A DAY IF NEEDED FOR PAIN 100 g 1 03/11/20 25 Active docusate sodium (Colace) 100 MG capsule Take 1 capsule (100 mg) by mouth if needed each day for constipation. 90 capsule 03/11/20 25 Active lidocaine (Lidoderm) 5 % patch Apply 1 patch topically Once per day. Remove & discard patch within 12 hours or as directed by MD. 30 patch 2 03/11/20 25 Active sucralfate (Carafate) 1 g tablet Take 1 tablet (1 g) by mouth if needed in the morning and at bedtime (GERD,epigast erlinda pain). 180 tablet 03/11/20 25 Active pantoprazole (ProtoNix) 40 MG EC tablet TAKE 1 TABLET BY MOUTH EVERY DAY 1/2 AN HOUR BEFORE BREAKFAST 90 tablet 03/11/20 25 Active acetaminophen (Tylenol) 500 MG tablet Take 2 tablets (1,000 mg) by mouth every 6 (six) hours if needed for moderate pain or fever for up to 25 doses. 30 tablet 05/17/20 23 025 Discontinued(Re order (will not trigger notification to Pharmacy)) docusate sodium (Colace) 100 MG capsule Take 100 mg by mouth at bedtime. 03/27/20 24 025 Discontinued(Re order (will not trigger notification to Pharmacy)) lidocaine (Lidoderm) 5 % patch Apply 1 patch topically Once per day. Remove & discard patch within 12 hours or as directed by MD. 30 patch 2 10/29/19 025 Discontinued(Re order (will not trigger notification to Pharmacy)) nicotine polacrilex (Nicorelief) 2 MG gum Chew 1 each (2 mg) if needed for smoking cessation. 100 each 2 10/29/19 25 025 Discontinued(Re order (will not trigger notification to Pharmacy)) pantoprazole (ProtoNix) 40 MG EC tablet TAKE 1 TABLET BY MOUTH EVERY DAY 1/2 AN HOUR BEFORE BREAKFAST 90 tablet 1 10/29/19 025 Discontinued(Re order (will not trigger notification to Pharmacy)) sucralfate (Carafate) 1 g tablet TAKE 1 TABLET (1 G) BY MOUTH IF NEEDED IN THE MORNING AND AT BEDTIME (GERD,EPIGAST ERLINDA PAIN). 180 tablet 11/06/19 25 025 Discontinued ARIPiprazole (Abilify) 5 MG tablet TAKE 1 TABLET BY MOUTH EVERY DAY IN THE MORNING 90 tablet 11/22/19 25 025 Discontinued Diclofenac Sodium 1 % gel APPLY 2 GRAMS TOPICALLY TWICE A DAY IF NEEDED FOR PAIN 100 g 1 12/13/19 25 025 Discontinued Diclofenac Sodium 1 % gel APPLY 2 GRAMS TOPICALLY TWICE A DAY IF NEEDED FOR PAIN 100 g 1 02/11/20 25 025 Discontinued(Re order (will not trigger notification to Pharmacy)) sucralfate (Carafate) 1 g tablet TAKE 1 TABLET (1 G) BY MOUTH IF NEEDED IN THE MORNING AND AT BEDTIME (GERD,EPIGAST ERLINDA PAIN). 180 tablet 02/12/20 25 025 Discontinued(Re order (will not trigger notification to Pharmacy)) Active Problems Problem Noted Date Diagnosed Date [...] to orthopedic to further evaluate -pt will scallop dredger to f up about this as well [...] be contacted--I gave today written info of [facility] for pt to call and schedule apt [...] Encounters Date Type Department Care Team Description 03/11/2025 9:45 AM EDT Office Visit [facility] [address] [place] [address] Cat Amaya MD Housing insecurity (Primary Dx); Dietary counseling; Exercise counseling; Pain of right clavicle; Encounter for immunization 03/11/2025 Patient Outreach [facility] [address] [place] [address] Cat Amaya MD Care Coordination (CHW outreach for SDOH housing search-referral completed ) 03/11/2025 Travel 03/10/2025 Telephone [facility] [address] [place] [address] Cat Amaya MD chart prep 02/20/2025 Refill [facility] [address] [place] [address] Cat Amaya MD 2025 Refill [facility] [address] [place] [address] Cat Amaya MD 02/08/2025 Refill [facility] [address] [place] [address] Cat Amaya MD 01/02/2025 Telephone [facility] [address] [place] [address] Cat Amaya MD 12/26/2024 Orders Only [facility] [address] [place] [address] Cat Amaya MD 12/23/2024 Telephone [facility] [address] [place] [address] Cat Amaya MD 12/12/2024 Refill [facility] [address] [place] [address] Cat Amaya MD from Last 3 Months Immunizations Immunization Administration Dates Next Due Influenza injectable quadrivalent preservative f ree 02/13/2023,02/22/2022 Influenza, Injectable, MDCK, preservative free 0 07/19/2024 Influenza, seasonal, injectable, preservative fr ee 03/11/2025 Pfizer Covid-19 Vaccine 12+ 03/11/2025, Pneumococcal Conjugate PCV 20 06/08/2023 Td (adult), [...] with others, in a hotel, in a longterm, living outside on the street, on a [...] Mass Index 25.99 03/11/2025 9:55 AM EDT Plan of Treatment Upcoming Encounters Date Type Department Care Team (Late st Contact Info) Description 05/26/2025 3:30 PM EST Clinical Support [facility] [address] [place] [address] [phone] Health Maintenance Due Date Last Done Comments CT Colonography 1976 FIT DNA/Cologuard 1976 FIT 1976 FOBT 1976 Sigmoidoscopy 1976 Family Planning (PISQ) 02/10/1991 Hepatitis B Vaccines (1 of 3 - 19+ 3-dose series) 02/10/1995 Depression Monitoring 04/29/2025 10/28/2024, 025 Alcohol/Substance Use Screening 10/28/2025 10/28/2024 Disability Screening 10/28/2025 10/28/2024 SDOH Screening 10/28/2025 10/28/2024 Zoster Vaccines (1 of 2) 02/10/2026 Tobacco Screening 03/11/2026 03/11/2025 Lipid Panel 12/26/2029 12/26/2024, 09/0 07/2023, 09/21/2022, Additional history exists DTaP/Tdap/Td Vaccines (4 - Td or Tdap) 11/13/2031 11/12/2021, 01/14/2021, 11/20/2018 Colonoscopy 08/01/2032 08/01/2022 Colorectal Cancer Screening 08/01/2032 RSV Patients and Patients Aged 60 years or older (1 - 1-dose 75+ series) 02/10/2051 Pneumococcal Vaccine: Pediatrics (0 to 5 Years) and At-Risk Patients (6 to 49) Years Completed 06/08/2023 HIV Screening Completed 12/26/2024, 09/0 07/2023, 09/21/2022, Additional history exists Hepatitis C Screening Completed 12/26/2024 , 01/30/2024, 09/21/2022 COVID-19 Vaccine Completed 03/11/2025, , 06/08/2023, Additional history exists Influenza Vaccine Completed 03/11/2025, , 02/13/2023, Additional history exists HIB Vaccines Aged Out [...] 12/26/2024 1:25 PM EDT Annual physical exam [facility] COLONOSCOPY Routine 08/01/2022 3:27 PM EST from Last 3 Months or Most Recently Relevant to Health Maintenance Results * Chlamydia/Trichomonas/Neisseria gonorrhoeae, PCR, Urine (12/26/2024 1:25 PM EDT) CT PCR, Urine NOT DETECTED Not Detect. [facility] Comment:A not detected test result [...] NG PCR, Urine NOT DETECTED Not Detect. [facility] Comment:A not detected test result [...] 1:25 PM EDT 12/26/2024 5:37 PM EDT us Cat Rodriguez MD LAB URINE ORDERAB LES Final Result [facility] [address] [place] [phone] * Syphilis Screen (12/26/2024 1:25 PM EDT) Syphilis Screen Nonreactive Nonreactive [facility] Blood 12/26/2024 1:25 PM EDT 12/26/2024 5:51 PM EDT us Cat Rodriguez MD LAB BLOOD ORDERAB LES Final Result [facility] [address] [place] [phone] * Vitamin B12 (Cobalamin) and Folate Panel, Serum (12/26/2024 1:25 PM EDT) Vitamin B12 441 200 - 900 pg/mL [facility] Comment:NORMAL 200-900 PG/ML INDETERMINATE 160-199 PG/ML DEFICIENT < 160 PG/ML Folate 10.9 > or = 4.0 ng/mL [facility] Comment:Reference Values:> o r = 4.0 ng/mL< 4.0 ng/mL suggests folate deficiency Methotrexate, aminopterin and folinic acid(leucovorin) are chemotherapeutic agents whose molecularstructures are similar to folate; therefore, the Architectfolate assay cannot be used for patients using these drugs. Blood 12/26/2024 1:25 PM EDT 12/26/2024 5:51 PM EDT us Cat Rodriguez MD LAB BLOOD ORDERAB LES Final Result Performing Organization Address [facility] Co de Phone Number [facility] [address] [place] [phone] * TSH with Reflex to Free T4 (12/26/2024 1:25 PM EDT) TSH reflex Free T4 0.98 0.32 - 4.0 uIU/mL [facility] Blood 12/26/2024 1:25 PM EDT 12/26/2024 5:51 PM EDT us Cat Rodriguez MD LAB BLOOD ORDERAB LES Final Result [facility] [address] [place] [address] [phone] * Hepatitis C Antibody with Reflex to HCV, RNA, Quantitative, Real-Time PCR (12/26/2024 1:25 PM EDT) Hepatitis C Antibody Nonreactive Nonreactive [facility] Comment:Antibodies to HCV no t detected; does not exclude early acuteHCV infection. Blood Venous blood specimen / Unknown 12/26/2024 1:25 PM EDT 12/26/2024 5:51 PM EDT us Cat Rodriguez MD LAB BLOOD ORDERAB LES Final Result Performing Organization Address [facility] Co de Phone Number [facility] [address] [place] [phone] * Hepatitis B surface antigen, EIA (12/26/2024 1:25 PM EDT) Hepatitis B Surface Ag Negative Negative [facility] Blood Venous blood specimen / Unknown 12/26/2024 1:25 PM EDT 12/26/2024 5:51 PM EDT us Cat Rodriguez MD LAB BLOOD ORDERAB LES Final Result Performing Organization Address [facility] Co de Phone Number [facility] [address] [place] [address] [phone] * Hepatitis B Core Antibody, Total (12/26/2024 1:25 PM EDT) Hepatitis B Core Antibody Nonreactive Nonreactive [facility] Blood Venous blood specimen / Unknown 12/26/2024 1:25 PM EDT 12/26/2024 5:51 PM EDT us Cat Rodriguez MD LAB BLOOD ORDERAB LES Final Result Performing Organization Address City/[facility]/ZIP Co de Phone Number [facility] [address] [place] [phone] * HIV-1/2 Antigen and Antibodies, Fourth Generation, with Reflexes (12/26/2024 1:25 PM EDT) Pathologist [facility] HIV AB/AG Nonreactive Nonreactive [facility] Comment:HIV-1 p24 Ag and/or HIV-1/HIV-2 Ab not detected.A test result that is nonreactive does not exclude thepossibility of exposure to or infection with HIV-1 and/orHIV-2. Nonreactive results in this assay for individualswith prior exposure to HIV-1 and/or HIV-2 may be due toantigen and antibody levels that are below the limit ofdetection of this assay.The [email or web address] HIV Ag/Ab Combo assay result andsupplemental assay results should be interpreted inconjunction with the patient's clinical presentation,history and other laboratory results. If the results areinconsistent with clinical evidence, additional testing issuggested to confirm the result. Blood Venous blood specimen / Unknown 12/26/2024 1:25 PM EDT 12/26/2024 5:51 PM EDT us Cat Rodriguez MD LAB BLOOD ORDERAB LES Final Result [facility] [address] [place] [address] [phone] * Hepatitis B Surface Antibody, Qualitative (12/26/2024 1:25 PM EDT) Pathologist [facility] ~Hepatitis B Surface Antibody REACTIVE Nonreactive [facility] Comment:REACTIVE: > 11.99 mI U/mL Blood Venous blood specimen / Unknown 12/26/2024 1:25 PM EDT 12/26/2024 5:51 PM EDT us Cat Rodriguez MD LAB BLOOD ORDERAB LES Final Result [facility] [address] [place] [address] [phone] * CBC (12/26/2024 1:25 PM EDT) White Blood Count 5.9 4.8 - 10.8 X10*3/uL [facility] Red Blood Count 4.73 4.60 - 5.80 X10*6/uL [facility] Hemoglobin 14.9 14.0 - 18.0 g/dl [facility] Hematocrit 43.6 42.0 - 52.0 % [facility] Mean Corpuscular Volume 92.2 80.0 - 98.0 fL [facility] Mean Corpuscular Hemoglobin 31.5 27.0 - 33.0 pg [facility] Mean Corpuscular HGB Conc 34.2 31.0 - 36.0 g/dl [facility] Red Cell Distribution Width 12.8 11.0 - 16.0 % [facility] Platelet Count 235 160 - 400 X10*3/uL [facility] Mean Platelet Volume 11.4 9.4 - 12.4 fL [facility] NRBC Pct Auto 0.0 0.0 - 0.2 /100WBC [facility] NRBC Abs Auto 0.000 0.0 - 0.012 X10*3/uL [facility] Blood Venous blood specimen / Unknown 12/26/2024 1:25 PM EDT 12/26/2024 5:51 PM EDT us Cat Rodriguez MD LAB BLOOD ORDERAB LES Final Result [facility] [address] [place] [phone] * Hemoglobin A1c (12/26/2024 1:25 PM EDT) Hemoglobin A1c 5.3 <6.0 % [facility] Comment:Hemoglobin A1C Refer ence Range Adults: 4.8 - 6.0 % Non diabetic: < 6.0 % Goal: < 7.0 %Additional Action Suggested: > 8.0 %Note: Hemoglobin A1c results are invalid for patients with abnormal amounts of HbF. Blood transfusions may impact the HbA1c concentration in the patient sample. Estimated Average Glucose 105 mg/dL [facility] Comment:eAG = Estimated ave rage glucose which is %A1C expressed asaverage glucose, using the formula of the [id number] Glucose study (ADAG), Diabetes Care, Vol.31,#8,Dec. 2007 Blood Venous blood specimen / Unknown 12/26/2024 1:25 PM EDT 12/26/2024 5:51 PM EDT us Cat Rodriguez MD LAB BLOOD ORDERAB LES Final Result [facility] [address] [place] [phone] * Lipid Panel, Standard (12/26/2024 1:25 PM EDT) Triglycerides 49 <150 mg/dL [facility] Comment:Desirable Triglyceri de: less than 150 mg/dLBorderline High Triglyceride 150-199 mg/dLHigh Triglyceride: 200-499 mg/dLVery High Triglyceride: greater than or equal to 5OO mg/dL Cholesterol 167 <200 mg/dL [facility] Comment:Desirable Cholestero l: less than 200 mg/dLBorderline High Cholesterol: 200-239 mg/dLHigh Cholesterol: greater than 239 mg/dL LDL Cholesterol Calculated 95 <100 mg/dL [facility] Comment:Desirable LDL: less than 100 mg/dLNear Optimal/Above Optimal LDL: 110- 129 mg/dLBorderline High LDL: 130-159 mg/dLHigh LDL: 160-189 mg/dLVery High LDL: greater than or equal to 190 mg/dL HDL Cholesterol 63 >40 mg/dL [facility] Comment:Desirable HDL: great er than 40 mg/dL Note: This HDL assay may give artificially low results in patients with liver disease. Blood Venous blood specimen / Unknown 12/26/2024 1:25 PM EDT 12/26/2024 5:51 PM EDT us Cat Rodriguez MD LAB BLOOD ORDERAB LES Final Result Performing Organization Address City/[facility]/ZIP Co de Phone Number [facility] [address], [place] [phone] * Comprehensive Metabolic Panel (12/26/2024 1:25 PM EDT) Sodium 143 135 - 145 mmol/L [facility] Potassium 3.9 3.3 - 5.1 mmol/L [facility] Chloride 105 96 - 108 mmol/L [facility] Carbon Dioxide 28 22 - 29 mmol/L [facility] Anion Gap 14 12 - 20 [facility] Urea Nitrogen (BUN) 9 9 - 16 mg/dL [facility] Creatinine, Serum 0.76 0.5 - 1.4 mg/dL [facility] Estimated Glomerular Filt Rate >60 [facility] Comment:Chronic Kidney Disea se: Estimated GFR < 60 mL/min/1.80b2Hvaydr Kidney Disease: Estimated GFR < 15 mL/min/1.73m2 Glucose 71 60 - 115 mg/dL [facility] Calcium 9.1 8.4 - 10.2 mg/dL [facility] Bilirubin, Total 0.7 0.0 - 1.0 mg/dL [facility] Aspartate Amino Transferase 32 5 - 37 U/L [facility] Alanine Aminotransferase 30 0 - 40 U/L [facility] Total Protein 7.0 6.5 - 8.0 g/dL [facility] Albumin Level 4.2 3.5 - 5.0 g/dL [facility] Alkaline Phosphatase 65 39 - 117 U/L [facility] Blood Venous blood specimen / Unknown 12/26/2024 1:25 PM EDT 12/26/2024 5:51 PM EDT us Cat Rodriguez MD LAB BLOOD ORDERAB LES Final Result [facility] [address] [place] [phone] * Hm Colonoscopy (08/01/2022 3:27 PM EST) us Historical Provider HEALTH MAINTENANCE Final Result from Last 3 Months or Most Recently Relevant to Health Maintenance Insurance [facility] C3 Care Teams Statistical Machine Servicer Relationship Specialty Start Date End Date Cat Amaya MD [address] [place] [phone] PCP - General Internal Medicine 09/19/22 Ria Michael Master RiggerSuperintendent Meter Tests 10/20/23
--- OUTSIDE RECORDS SUMMARY | 2025-03-11 12:58 | XMS_ITS | Clinical Summary ---
Author Organization [facility] Address [address] [place] [address] Phone Care Team Providers Care Bulwark Carpenter Name Role Phone Physician, No Pcp Primary Care Provider Unavaila ble Allergies No known active allergies Medications No known medications Active Problems No known active problems Immunizations Immunization Administration Dates Next Due Td Tetanus diptheria, [...] Health Maintenance Due Date Last Done Comments Colorectal Cancer Screening: Colonoscopy 1976 Hepatitis B Vaccines (1 of 3 - 19+ 3-dose series) 02/10/1995 Social Influencers of Health Screening 01/14/2021 Depression Screening 05/29/2024 COVID-19 Vaccine ( - season) 2025 06/08/2023, 03/09/2022, 09/09/2021, Additional history exists Influenza Vaccine (#1) 2025 02/13/2023, 2021 Cholesterol Screening (Lipid Panel) 01/29/2029 01/30/2024 DTaP,Tdap,and Td Vaccines (4 - Td or Tdap) 11/13/2031 11/12/2021, 01/14/2021, 11/20/2018 RSV Immunization Adult Patients (1 - 1-dose 75+ series) 02/10/2051 Pneumococcal [...] to molecular study (01/14/2021 12:59 PM EDT) [facility] Hepatitis C Antibody Negative/ Nonreacti ve Negative/ Nonreacti ve LAB CHEMISTRY METHOD 01/14/2021 6:39 PM EDT [facility] Comment: 1. These results were obtained with [employer] Centaur HCV assay. Results obtained from other manufacturers' methods may not be used interchangeably. April 2008. 2. POSITIVE / REACTIVE Reported to the [facility]. Quantitative HCV RNA by PCR will follow. 3. LOW POSITIVE/LOW REACTIVITY Confirmation by Quantitative HCV RNA by PCR will follow. 4. NEGATIVE / NONREACTIVE result is normal. 5. [facility] requires all positive results to include an ALT. This test will reflex. No charge. Blood Venous blood specimen / Unknown Venipuncture / Unknown 01/14/2021 12:59 PM EDT 01/14/2021 1:09 PM EDT us Shital ACHARY[facility] LAB BLOOD ORDERABLES Final R esult [facility] [address] [place] [address] * Rapid HIV 1 and HIV 2 antibody screen (01/14/2021 12:59 PM EDT) [facility] Rapid HIV 1&2 Negative Negative 01/14/2021 1:38 PM EDT [facility] Blood Venous blood specimen / Unknown Venipuncture / Unknown 01/14/2021 12:59 PM EDT 01/14/2021 1:09 PM EDT Narrative [facility] - 01/14/2021 1:38 PM EDT [...] law may result in a fine or skilled nursing sentence or both. A general authorization for [...] may result in a fine or a skilled nursing sentence or both. Shital [facility] LAB BLOOD ORDERABLES Final R esult Performing Organization Address City/State/[facility] Co de Phone Number [facility] [address] [place] [address] from Last 3 Months or Most Recently Relevant to Health Maintenance Insurance MEDICAID - [place] on file Care Teams Bulwark Carpenter Relationship Specialty Start Date End Date Physician, No Pcp PCP - General 06/24/24
--- OUTSIDE RECORDS SUMMARY | 2025-03-11 12:58 | XMS_ITS | Encounter Summary ---
Author Organization [employer] Address [address] [facility] 7t [place] [address] Care Team Providers Care Collections Associate Name Role Phone Cat Amaya MD Primary Care Pro vider Reason for Visit * Reason Comments Med Change Request Encounter Details Date Type Department Care Team ([facility] Contact Info) Description 05/06/2023 Refill [facility] [address] [place], [place] [phone] Cat Amaya MD [address] [place] [address] Social History Tobacco Use Types Packs/Day Years [...] Description 05/26/2025 3:30 PM EST Clinical Support [facility] [address] [place] [phone] documented as of this encounter Visit Diagnoses Not on filedocumented in this encounter Additional Health Concerns Assessment Noted Time PHQ-9 Depression Total Score: 6 02/14/20 23 3:45 PM EDT documented as of this encounter Care Teams Collections Associate Relationship Specialty Start Date End Date Cat Amaya MD [address] [place] [address] PCP - General Internal Medicine 09/19/22 Ria Michael Commission AuditorIc Designer Gate Arrays 10/20/23 documented as of this encounter
--- OUTSIDE RECORDS SUMMARY | 2025-03-11 12:58 | XMS_ITS | Encounter Summary ---
Author Organization [employer] Address [address] [facility] [address] [place] [address] Care Team Providers Care Plant Puller Name Role Phone Cat Amaya MD Primary Care Pro vider Reason for Visit * Reason Comments Med Refill Encounter Details Date Type Department Care Team ([facility] st Contact Info) Description 10/28/2024 Refill [facility] MEDICINE [address] [place], [place] [phone] Cat Amaya MD [address] [place] [address] Social History Tobacco Use Types Packs/Day Years [...] AM EDT documented as of this encounter Functional Status * Over the past 2 weeks, how often have you been bothered by any of the following problems? Question Answer Date of Assessment Author Patient Health Questionnaire -2 Score 6 10/28/2024 2:24 PM EDT Heather Rider MA * Little interest or pleasure in doing things Answer Date of Assessment Author Nearly every day 10/28/2024 2:24 PM EDT Heather Rider MA * Feeling down, depressed, or hopeless Answer Date of Assessment Author Nearly every day 10/28/2024 2:24 PM EDT Heather Rider MA * Trouble falling or staying asleep, or sleeping too much Answer Date of Assessment Author Nearly every day 10/28/2024 2:24 PM EDT Heather Rider MA * Feeling tired or having little energy Answer Date of Assessment Author Nearly every day 10/28/2024 2:24 PM EDT Heather Rider MA * Poor appetite or overeating Answer Date of Assessment Author Nearly every day 10/28/2024 2:24 PM EDT Heather iRder MA * Feeling bad about yourself - or that you are a failure or have let yourself or your family down Answer Date of Assessment Author Nearly every day 10/28/2024 2:24 PM EDT Heather Rider MA * Trouble concentrating on things, such as reading the newspaper or watching television Answer Date of Assessment Author Nearly every day 10/28/2024 2:24 PM EDT Heather Rider MA * Moving or speaking so slowly that other people could have noticed? Or the opposite - being so fidgety or restless that you have been moving around a lot more than usual. Answer Date of Assessment Author Not at all 10/28/2024 2:24 PM EDT Jazzy Rider MA * Thoughts that you would be better off or hurting yourself in some way Answer Date of Assessment Author Not at all 10/28/2024 2:24 PM EDT Jazzy Rider MA * Patient Health Questionnaire-9 Score Answer Date of Assessment Author 21 10/28/2024 2:24 PM EDT Jazzy Rider MA * How difficult have these problems made it for you to do your work, take care of things at home, or get along with other people? Answer Date of Assessment Author Not difficult at all 10/28/2024 2:24 PM EDT Heather Lomax MA * Over the last 2 weeks, how often have you been bothered by any of the following problems? Question Answer Date of Assessment Author Feeling nervous, anxious, or on edge 3 10/28/2024 2:24 PM EDT Heather Rider MA Not being able to stop or co ntrol worrying 3 10/28/2024 2:24 PM EDT Heather Rider MA Worrying too much about diff erent things 3 10/28/2024 2:24 PM EDT Heather Rider MA Trouble relaxing 3 10/28/2024 2:24 PM EDT Heather Rene MA Being so restless that it is hard to sit still 3 10/28/2024 2:24 PM EDT Heather Rider MA Becoming easily annoyed or irritable 3 10/28/2024 2:24 PM EDT Heather Rider MA Feeling afraid as if somethi ng awful might happen 3 10/28/2024 2:24 PM EDT Heather Rider MA GENET-7 Total Score 10/28/2024 2:24 PM EDT Heather Rider MA documented as of this encounter Plan of Treatment Upcoming Encounters Date Type Department Care Team (Late st Contact Info) Description 05/26/2025 3:30 PM EST Clinical Support [facility] MEDICINE [address] [place] [phone] documented as of this encounter Visit Diagnoses Not on filedocumented in this encounter Additional Health Concerns Assessment Noted Time PHQ-9 Depression Total Score: 025 2:24 PM EDT documented as of this encounter Care Teams Plant Puller Relationship Specialty Start Date End Date Cat Amaya MD [address] [place] [address] PCP - General Internal Medicine 09/19/22 Ria Michael Information Technology OfficerPbx Installer 10/20/23 documented as of this encounter
== END 2025-03-11 10:52 | disposition home or self-care (01) ==
LOC: HO.HHCL 10:51
PROVIDERS: PCP Student in an Organized Health Care Education/Training Program; Visit Provider Student in an Organized Health Care Education/Training Program
DX: Z13.89 Encounter for screening for other disorder (principal)

== ENCOUNTER 2025-03-12 12:05 | Outpatient (REF) | payer MEDICAID, SELFPAY ==
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
--- NOTE | ~2025-03-12 | XR_ITS ---
EXAMINATION: XR CLAVICLE, RIGHT CLINICAL INFORMATION: per pt growing in internal aspect of clavicule COMPARISON: 10/29/2024. TECHNIQUE: Two views of the right clavicle. FINDINGS: No fracture, dislocation, or suspicious bone lesion. There is a stable large corticated ossification present along the distal superior aspect of the clavicle, abutting the AC joint. This is likely sequela of previous superior acromioclavicular ligament periosteal injury. There is no soft tissue abnormality. XR/XR clavicle RT IMPRESSION: 1. No acute bony abnormalities. 2. Stable, significant osseous spurring of the superior distal clavicle abutting the AC joint. No change from 10/29/2024. Electronically signed by: Mac Doyle MD 03/12/2025 12:57 PM EDT
--- OUTSIDE RECORDS SUMMARY | 2025-03-12 15:18 | XMS_ITS | Encounter Summary ---
Author Organization [employer] Address [address] [facility] [address] [place] [address] Care Team Providers Care Tire Changer Name Role Phone Cat Amaya MD Primary Care Pro vider Reason for Visit * Reason Comments Care Coordination [facility] outreach for SDO H housing search-referral completed Encounter Details Date Type Department Care Team (Latest Contact Info) Description 03/11/2025 Patient Outreach [facility] MEDICINE [address] [place] [phone] Cat Amaya MD [address] [place] [address] Care Coordination ([facility] outreach for SDOH housing [...] with others, in a hotel, in a penitentiary, living outside on the street, on a [...] Wednesdays, and Walk-In Urgent Care Located in [facility]. Patient provided with after-hours line for [facility], , which offer night time triage service and option to transfer to supervisor shrimp pond provider if needed. documented in this encounter Plan of Treatment Upcoming Encounters Date Type Department Care Team (Late st Contact Info) Description 05/26/2025 3:30 PM EST Clinical Support [facility] [address] [place] [address] documented as of this encounter Visit Diagnoses Not on filedocumented in this encounter Additional Health Concerns Assessment Noted Time PHQ-9 Depression Total Score: 21 025 2:24 PM EDT documented as of this encounter Care Teams Tire Changer Relationship Specialty Start Date End Date Cat Amaya MD [address] [place] [address] PCP - General Internal Medicine 09/19/22 Ria Michael Record Filing ClerkCounseling Case Manager 10/20/23 documented as of this encounter
--- OUTSIDE RECORDS SUMMARY | 2025-03-12 15:18 | XMS_ITS | Encounter Summary ---
Author Organization [employer] Address [address] [facility] [address] [place] [address] Care Team Providers Care Tour Operator Name Role Phone Cat Amaya MD Primary Care Pro vider Reason for Visit * Reason Onset Date Comments Appointment Request 04/18/2023 Encounter Details Date Type Department Care Team ([facility] st Contact Info) Description 04/18/2023 Telephone [facility] MEDICINE [address] [place], [place] [phone] Cat Amaya MD [address] [place], [place] [phone] Appointment Request Social History Tobacco Use Types [...] Description 05/26/2025 3:30 PM EST Clinical Support [facility] MEDICINE [address] [place] [phone] documented as of this encounter Visit Diagnoses Not on filedocumented in this encounter Additional Health Concerns Assessment Noted Time PHQ-9 Depression Total Score: 6 02/14/20 23 3:45 PM EDT documented as of this encounter Care Teams Tour Operator Relationship Specialty Start Date End Date Cat Amaya MD [address] [place] [address] PCP - General Internal Medicine 09/19/22 Ria Michael Yardage Control Operator FormingCustomer Technical Services Manager 10/20/23 documented as of this encounter
--- OUTSIDE RECORDS SUMMARY | 2025-03-12 15:18 | XMS_ITS | Encounter Summary ---
Author Organization [employer] Address [address] [facility] [address] [place] [address] Care Team Providers Care Switch Tender Name Role Phone Cat Amaya MD Primary Care Pro vider Reason for Visit * Reason Onset Date Comments Referral 05/18/2023 Encounter Details Date Type Department Care Team ([facility] st Contact Info) Description 05/18/2023 Telephone [facility] MEDICINE [address] [place], [place] [phone] Cat Amaya MD [address] [place], [place] [phone] Referral Social History Tobacco Use Types Packs/Day [...] Description 05/26/2025 3:30 PM EST Clinical Support [facility] [address] [place] [address] documented as of this encounter Visit Diagnoses Not on filedocumented in this encounter Additional Health Concerns Assessment Noted Time PHQ-9 Depression Total Score: 6 02/14/20 23 3:45 PM EDT documented as of this encounter Care Teams Switch Tender Relationship Specialty Start Date End Date Cat Amaya MD [address] [place] [address] PCP - General Internal Medicine 09/19/22 Ria Michael Architect InternshipResource Economist 10/20/23 documented as of this encounter
--- OUTSIDE RECORDS SUMMARY | 2025-03-12 15:18 | XMS_ITS | Encounter Summary ---
Author Organization [employer] Address [address] [place] [address] Care Team Providers Care Manager Engagement Name Role Phone Cat Amaya MD Primary Care Pro vider Encounter Details Date Type Department Care Team (Late st Contact Info) Description 05/20/2024 Orders Only [facility] MEDICINE [address] [place] [address] Provider, MD Ekaterina Social History Tobacco Use [...] Description 05/26/2025 3:30 PM EST Clinical Support [facility] MEDICINE [address] [place] [phone] documented as of this encounter Procedures Procedure [...] documented as of this encounter Care Teams Manager Engagement Relationship Specialty Start Date End Date Cat Amaya MD [address] [place] [phone] PCP - General Internal Medicine 09/19/22 Ria Michael Nursing Project CoordinatorShift Lab Technician 10/20/23 documented as of this encounter
--- OUTSIDE RECORDS SUMMARY | 2025-03-12 15:18 | XMS_ITS | Clinical Summary ---
Author Organization [facility] Address [address] [place] [address] Phone Care Team Providers Care Vice President Of Contracts Name Role Phone Physician, No Pcp Primary [...] to molecular study (01/14/2021 12:59 PM EDT) [facility] Hepatitis C Antibody Negative/ Nonreacti ve Negative/ Nonreacti ve LAB CHEMISTRY METHOD 01/14/2021 6:[address] [facility] Comment: 1. These results were obtained with [employer] Centaur HCV assay. Results obtained from other manufacturers' methods may not be used interchangeably. April 2008. 2. POSITIVE / REACTIVE Reported to the [facility]. Quantitative HCV RNA by PCR will follow. 3. LOW POSITIVE/LOW REACTIVITY Confirmation by Quantitative HCV RNA by PCR will follow. 4. NEGATIVE / NONREACTIVE result is normal. 5. [facility] requires all positive results to include an ALT. This test will reflex. No charge. Blood Venous blood specimen / Unknown Venipuncture / Unknown 01/14/2021 12:59 PM EDT 01/14/2021 1:09 PM EDT us [facility] BLOOD ORDERABLES Final R esult [facility] [address] [place] [address] * Rapid HIV 1 and HIV 2 antibody screen (01/14/2021 12:59 PM EDT) [facility] Rapid HIV 1&2 Negative Negative 01/14/2021 1:[address] [facility] Blood Venous blood specimen / Unknown Venipuncture / Unknown 01/14/2021 12:59 PM EDT 01/14/2021 1:[address] [facility] - 01/14/2021 1:38 PM EDT [...] law may result in a fine or intermediate sentence or both. A general authorization for [...] may result in a fine or a intermediate sentence or both. [facility] BLOOD ORDERABLES Final R esult Performing Organization Address City/State/[facility] Co de Phone Number [facility] [address] [place] [address] from Last 3 Months or Most Recently Relevant to Health Maintenance Insurance MEDICAID - [place] on file Care Teams Vice President Of Contracts Relationship Specialty Start Date End Date Physician, No Pcp PCP - General 06/24/24
--- OUTSIDE RECORDS SUMMARY | 2025-03-12 15:18 | XMS_ITS | Encounter Summary ---
Author Organization [email or web address] Address [address] [facility] 7[address] [place] [address] Care Team Providers Care Speech Therapy Assistant Name Role Phone Cat Amaya MD Primary Care Pro vider Reason for Visit * Reason Comments Med Refill Encounter Details Date Type Department Care Team ([facility] st Contact Info) Description 10/28/2024 Refill [facility] [address] [place], [place] [phone] Cat Amaya MD [address] [place] [address] Social History Tobacco Use Types Packs/Day Years [...] with others, in a hotel, in a assisted, living outside on the street, on a [...] PM EDT Heather Rider MA * Feeling bad about yourself - [...] 3:30 PM EST Clinical Support [facility] [address] [place] [address] documented as of this encounter Visit Diagnoses Not on filedocumented in this encounter Additional Health Concerns Assessment Noted Time PHQ-9 Depression Total Score: 025 2:24 PM EDT documented as of this encounter Care Teams Speech Therapy Assistant Relationship Specialty Start Date End Date Cat Amaya MD [address] [place] [address] PCP - General Internal Medicine 09/19/22 Ria Michael Metal SlitterMachine Pan Greaser 10/20/23 documented as of this encounter
--- OUTSIDE RECORDS SUMMARY | 2025-03-12 15:18 | XMS_ITS | Clinical Summary ---
Author Organization [employer] Address [address] [facility] 7t [place] [address] Care Team Providers Care Public Relations Senior Associate Name Role Phone Cat Amaay MD Primary Care Pro vider Allergies Active [...] for smoking cessation. 100 each 2 10/29/19 025 Discontinued(Re order (will not [...] Active Problems Problem Noted Date Diagnosed Date Homeless 03/11/2025 Pain of right clavicle 10/28/2024 Memory loss [...] to orthopedic to further evaluate -pt will call worker to f up about this as well [...] be contacted--I gave today written info of [facility] for pt to call and schedule [...] Description 03/11/2025 9:45 AM EDT Office Visit [facility] [place] [address] Cat Amaya MD Housing insecurity (Primary Dx); Dietary counseling; Exercise counseling; Pain of right clavicle; Encounter for immunization; Gastric ulcer without hemorrhage or perforation, unspecified chronicity; Healthcare maintenance; Lumbar back pain; Pain of right lower extremity; Right hand pain; Memory loss; Tobacco abuse; Homeless 03/11/2025 Patient Outreach [facility] [address] [place] [address] Cat Amaya MD Care Coordination (CHW outreach for [facility] housing search-referral completed ) 03/11/2025 Travel 03/10/2025 Telephone [facility] [address] [place] [address] Cat Amaya MD chart prep 02/20/2025 Refill [facility] [address] [place] [address] Cat Amaya MD 2025 Refill [facility] [address] [facility] [place] [address] Cat Amaya MD 02/08/2025 Refill [facility] [address] [facility] [facility] [place] [address] Cat Amaya MD 01/02/2025 Telephone [facility] [address] [place] [address] Cat Amaya MD 12/26/2024 Orders Only [facility] [address] [place] [address] Cat Amaya MD 12/23/2024 Telephone [facility] [address] [place] [address] Cat Amaya MD 12/12/2024 Refill [facility] [address] [place] [address] Cat Amaya MD from Last 3 Months Immunizations Immunization Administration Dates Next Due Influenza injectable quadrivalent preservative f ree 02/13/2023,02/22/2022 Influenza, Injectable, MDCK, preservative free 0 07/19/2024 Influenza, seasonal, injectable, preservative fr ee 03/11/2025 Pfizer Covid-19 Vaccine 12+ 03/11/2025, 4 Pneumococcal Conjugate PCV 20 06/08/2023 Td (adult), [...] Description 05/26/2025 3:30 PM EST Clinical Support [facility] [address] [place] [phone] Health Maintenance Due Date Last Done Comments [...] Screening 03/11/2026 03/11/2025 Lipid Panel 12/26/2029 12/26/2024, 090 07/2023, 09/21/2022, Additional history exists DTaP/Tdap/Td Vaccines (4 - Td or Tdap) 11/13/2031 11/12/2021, 01/14/2021, 11/20/2018 Colonoscopy 08/01/2032 08/01/2022 Colorectal Cancer Screening 08/01/2032 RSV Patients and Patients Aged 60 years or older (1 - 1-dose 75+ series) 02/10/2051 Pneumococcal Vaccine: Pediatrics (0 to 5 Years) and At-Risk Patients (6 to 49) Years Completed 06/08/2023 HIV Screening Completed 12/26/2024, 090 07/2023, 09/21/2022, Additional history exists Hepatitis C [...] 31 PM EDT Pain of right clavicle CHLAMYDIA/TRICHOMONAS/ NEISSERIA GONORRHOEAE, PCR, URINE Routine 12/26/2024 [...] 12/26/2024 1:25 PM EDT Annual physical exam COLONOSCOPY Routine 08/01/2022 3:27 PM EST from Last 3 Months or Most Recently Relevant to Health Maintenance Results * XR Clavicle Right (03/12/2025 12:31 PM EDT) Anatomical Region Laterality Modality Body, Clavicle Right Radiographic [place] ging 03/12/2025 12:3 1 PM EDT Narrative 03/12/2025 1:00 PM EDT [address] [address] XRay Report Signed Patient: Tal Cartwright MR#: [id number] : 1975 Acct:[id number] Age/Sex: 50 / M ADM Date: 03/12/25 Loc: HO.HHCX Attending Dr: Cat Rodriguez MD Ordering Physician: Cat Amaya MD Date of Service: 03/12/25 Procedure(s): XR clavicle RT Accession Number(s): [id number] cc: Cat Amaya MD Reason for Exam: [...] 03/12/25 1257 DD/ 1231 TD/TT: 03/12/25 1240 Estate Tax Examiner: Procedure Note Donotuseinterpreter, Image - 03/12/2025 [facility] [address] [place] [address] XRay Report Signed Patient: Rekha Cartwright#: [id number] : 1975Acct:[id number] Age/Sex: 50 / MADM Date: 03/12/25 Loc: .HHCX Attending Dr: Cat Rodriguez MD Ordering Physician: Cat Amaya MD Date of Service: 03/12/25 Procedure(s): XR clavicle RT Accession Number(s): [id number] cc: Cat Amaya MD Reason for Exam: [...] 03/12/25 1257 DD/ 1231 TD/TT: 03/12/25 1240 Estate Tax Examiner: Cat Rodriguez MD IMG XR PROCEDURES Final Result * Chlamydia/Trichomonas/Neisseria gonorrhoeae, PCR, Urine (12/26/2024 1:25 PM EDT) CT PCR, Urine NOT DETECTED Not Detect. [facility] Comment:A not detected test result does [...] NG PCR, Urine NOT DETECTED Not Detect. [facility] Comment:A not detected test result does [...] MD LAB URINE ORDERAB LES Final Result [facility] [address] [place] [phone] * Syphilis Screen (12/26/2024 1:25 PM EDT) Syphilis Screen Nonreactive Nonreactive [facility] Blood 12/26/2024 1:25 PM EDT 12/26/2024 5:51 PM EDT us Cat Rodriguez MD LAB BLOOD ORDERAB LES Final Result Performing Organization Address City/[facility]/ZIP Co de Phone Number [facility] [address] [place] [phone] * Vitamin B12 (Cobalamin) and Folate Panel, Serum (12/26/2024 1:25 PM EDT) Vitamin B12 441 200 - 900 pg/mL [facility] Comment:NORMAL 200-900 PG/ML INDETERMINATE 160-199 PG/ML DEFICIENT < 160 PG/ML Folate 10.9 > or = 4.0 ng/mL [facility] Comment:Reference Values:> o r = 4.0 ng/mL< 4.0 ng/mL suggests folate deficiency Methotrexate, aminopterin and folinic acid(leucovorin) are chemotherapeutic agents whose molecularstructures are similar to folate; therefore, the Architectfolate assay cannot be used for patients using these drugs. Blood 12/26/2024 1:25 PM EDT 12/26/2024 5:51 PM EDT us Cat Rodriguez MD LAB BLOOD ORDERAB LES Final Result Performing Organization Address [facility] Co de Phone Number [facility] [address] [place] [address] [phone] * TSH with Reflex to Free T4 (12/26/2024 1:25 PM EDT) TSH reflex Free T4 0.98 0.32 - 4.0 uIU/mL [facility] Blood 12/26/2024 1:25 PM EDT 12/26/2024 5:51 PM EDT us Cat Rodriguez MD LAB BLOOD ORDERAB LES Final Result Performing Organization Address City/[facility]/ZIP Co de Phone Number [facility] [address] [place] [address] [phone] * Hepatitis C Antibody with Reflex to HCV, RNA, Quantitative, Real-Time PCR (12/26/2024 1:25 PM EDT) Hepatitis C Antibody Nonreactive Nonreactive [facility] Comment:Antibodies to HCV no t detected; does not exclude early acuteHCV infection. Blood Venous blood specimen / Unknown 12/26/2024 1:25 PM EDT 12/26/2024 5:51 PM EDT us Cat Rodriguez MD LAB BLOOD ORDERAB LES Final Result Performing Organization Address City/[facility]/ZIP Co de Phone Number [facility] [address] [place] [phone] * Hepatitis B surface antigen, EIA (12/26/2024 1:25 PM EDT) Hepatitis B Surface Ag Negative Negative [facility] Blood Venous blood specimen / Unknown 12/26/2024 1:25 PM EDT 12/26/2024 5:51 PM EDT us Cat Rodriguez MD LAB BLOOD ORDERAB LES Final Result Performing Organization Address [facility]/ZIP Co de Phone Number [facility] [address] [place] [phone] * Hepatitis B Core Antibody, Total (12/26/2024 1:25 PM EDT) Hepatitis B Core Antibody Nonreactive Nonreactive [facility] Blood Venous blood specimen / Unknown 12/26/2024 1:25 PM EDT 12/26/2024 5:51 PM EDT Cat Rodriguez MD LAB BLOOD ORDERAB LES Final Result Performing Organization Address [facility]/ZIP Co de Phone Number [facility] [address] [place] [phone] * HIV-1/2 Antigen and Antibodies, Fourth Generation, with Reflexes (12/26/2024 1:25 PM EDT) [facility] HIV AB/AG Nonreactive Nonreactive [facility] Comment:HIV-1 p24 Ag and/or HIV-1/HIV-2 Ab not detected.A test result that is nonreactive does not exclude thepossibility of exposure to or infection with HIV-1 and/orHIV-2. Nonreactive results in this assay for individualswith prior exposure to HIV-1 and/or HIV-2 may be due toantigen and antibody levels that are below the limit ofdetection of this assay.The new[employer]Anal[employer]niLetsCram HIV Ag/Ab Combo assay result andsupplemental assay results should be interpreted inconjunction with the patient's clinical presentation,history and other laboratory results. If the results areinconsistent with clinical evidence, additional testing issuggested to confirm the result. Blood Venous blood specimen / Unknown 12/26/2024 1:25 PM EDT 12/26/2024 5:51 PM EDT us Cat Rodriguez MD LAB BLOOD ORDERAB LES Final Result Performing Organization Address City/[facility]/ZIP Co de Phone Number [facility] [address] [place] [phone] * Hepatitis B Surface Antibody, Qualitative (12/26/2024 1:25 PM EDT) [facility] ~Hepatitis B Surface Antibody REACTIVE Nonreactive [facility] Comment:REACTIVE: > 11.99 mI U/mL Blood Venous blood specimen / Unknown 12/26/2024 1:25 PM EDT 12/26/2024 5:51 PM EDT us Cat Rodriguez MD LAB BLOOD ORDERAB LES Final Result [facility] [address] [place] [phone] * CBC (12/26/2024 1:25 PM EDT) White Blood Count 5.9 4.8 - 10.8 X10*3/uL [facility] Red Blood Count 4.73 4.60 - 5.80 X10*6/uL [facility] Hemoglobin 14.9 14.0 - 18.0 g/dl [facility] Hematocrit 43.6 42.0 - 52.0 % [facility] Mean Corpuscular Volume 92.2 80.0 - 98.0 fL [facility] Mean Corpuscular Hemoglobin 31.5 27.0 - 33.0 pg [facility] Mean Corpuscular HGB Conc 34.2 31.0 - 36.0 g/dl [facility] Red Cell Distribution Width 12.8 11.0 - 16.0 % [facility] Platelet Count 235 160 - 400 X10*3/uL [facility] Mean Platelet Volume 11.4 9.4 - 12.4 fL [facility] NRBC Pct Auto 0.0 0.0 - 0.2 /100WBC [facility] NRBC Abs Auto 0.000 0.0 - 0.012 X10*3/uL [facility] Blood Venous blood specimen / Unknown 12/26/2024 1:25 PM EDT 12/26/2024 5:51 PM EDT us Cat Rodriguez MD LAB BLOOD ORDERAB LES Final Result [facility] [address] [place] [phone] * Hemoglobin A1c (12/26/2024 1:25 PM [...] patient sample. Estimated Average Glucose 105 mg/dL [facility] Comment:eAG = Estimated ave rage glucose which is %A1C expressed asaverage glucose, using the formula of the P8F-[id number] Glucose study (ADAG), Diabetes Care, Vol.31,#8,Dec. 2007 Blood Venous blood specimen / Unknown 12/26/2024 1:25 PM EDT 12/26/2024 5:51 PM EDT us Cat Rodriguez MD LAB BLOOD ORDERAB LES Final Result Performing Organization Address City/[facility]/ZIP Co de Phone Number [facility] [address] [place] [address] [phone] * Lipid Panel, Standard (12/26/2024 1:25 PM EDT) Triglycerides 49 <150 mg/dL [facility] Comment:Desirable Triglyceri de: less than 150 mg/dLBorderline High Triglyceride 150-199 mg/dLHigh Triglyceride: 200-499 mg/dLVery High Triglyceride: greater than or equal to 5OO mg/dL Cholesterol 167 <200 mg/dL [facility] Comment:Desirable Cholestero l: less than 200 mg/dLBorderline High Cholesterol: 200-239 mg/dLHigh Cholesterol: greater than 239 mg/dL LDL Cholesterol Calculated 95 <100 mg/dL [facility] Comment:Desirable LDL: less than 100 mg/dLNear Optimal/Above Optimal LDL: 110- 129 mg/dLBorderline High LDL: 130-159 mg/dLHigh LDL: 160-189 mg/dLVery High LDL: greater than or equal to 190 mg/dL HDL Cholesterol 63 >40 mg/dL [facility] Comment:Desirable HDL: great er than 40 mg/dL Note: This HDL assay may give artificially low results in patients with liver disease. Blood Venous blood specimen / Unknown 12/26/2024 1:25 PM EDT 12/26/2024 5:51 PM EDT us Cat Rodriguez MD LAB BLOOD ORDERAB LES Final Result [facility] [address] [place] [phone] * Comprehensive Metabolic Panel (12/26/2024 1:25 PM EDT) Sodium 143 135 - 145 mmol/L [facility] Potassium 3.9 3.3 - 5.1 mmol/L [facility] Chloride 105 96 - 108 mmol/L [facility] Carbon Dioxide 28 22 - 29 mmol/L [facility] Anion Gap 14 12 - 20 [facility] Urea Nitrogen (BUN) 9 9 - 16 mg/dL [facility] Creatinine, Serum 0.76 0.5 - 1.4 mg/dL [facility] Estimated Glomerular Filt Rate >60 [facility] Comment:Chronic Kidney Disea se: Estimated GFR < 60 mL/min/[id number] Kidney Disease: Estimated GFR < 15 mL/min/1.73m2 Glucose 71 60 - 115 mg/dL [facility] Calcium 9.1 8.4 - 10.2 mg/dL [facility] Bilirubin, Total 0.7 0.0 - 1.0 mg/dL [facility] Aspartate Amino Transferase 32 5 - 37 U/L [facility] Alanine Aminotransferase 30 0 - 40 U/L [facility] Total Protein 7.0 6.5 - 8.0 g/dL [facility] Albumin Level 4.2 3.5 - 5.0 g/dL [facility] Alkaline Phosphatase 65 39 - 117 U/L [facility] Blood Venous blood specimen / Unknown 12/26/2024 1:25 PM EDT 12/26/2024 5:51 PM EDT us Cat Rodriguez MD LAB BLOOD ORDERAB LES Final Result [facility] [address] [place] [phone] * Hm Colonoscopy (08/01/2022 3:27 PM EST) us Historical Provider HEALTH MAINTENANCE Final Result from Last 3 Months or Most Recently Relevant to Health Maintenance Insurance [facility] C3 Care Teams Public Relations Senior Associate Relationship Specialty Start Date End Date Cat Amaya MD [address] [place] [phone] PCP - General Internal Medicine 09/19/22 Ria Michael Sweatband Cutting Machine OperatorHospitality Internship 10/20/23
--- OUTSIDE RECORDS SUMMARY | 2025-03-12 15:18 | XMS_ITS | Encounter Summary ---
Author Organization [employer] Address [address] [facility] 7t [place] [address] Care Team Providers Care Chainstitch Sewing Machine Operator Name Role Phone Cat Amaya MD Primary Care Pro vider Reason for Visit * Reason Comments Med Change Request Encounter Details Date Type Department Care Team ([facility] Contact Info) Description 05/06/2023 Refill [facility] [address] [place], [place] [phone] Cat Amaya MD [address] [place] [address] Social History Tobacco Use Types Packs/Day Years [...] Description 05/26/2025 3:30 PM EST Clinical Support [facility] [address] [place] [address] documented as of this encounter Visit Diagnoses Not on filedocumented in this encounter Additional Health Concerns Assessment Noted Time PHQ-9 Depression Total Score: 6 02/14/20 23 3:45 PM EDT documented as of this encounter Care Teams Chainstitch Sewing Machine Operator Relationship Specialty Start Date End Date Cat Amaya MD [address] [place] [address] PCP - General Internal Medicine 09/19/22 Ria Michael Job Site SuperintendentAoc Operations Intelligence Officer 10/20/23 documented as of this encounter
--- OUTSIDE RECORDS SUMMARY | 2025-03-12 15:18 | XMS_ITS | Encounter Summary ---
Author Organization [employer] Address [address] [facility] [address] [place] [address] Care Team Providers Care Tax Compliance Agent Name Role Phone Cat Amaya MD Primary [...] with others, in a hotel, in a senior care, living outside on the street, on a [...] Description 05/26/2025 3:30 PM EST Clinical Support [facility] [address] [place] [phone] documented as of this encounter Visit Diagnoses Not on filedocumented in this encounter Additional Health Concerns Assessment Noted Time PHQ-9 Depression Total Score: 21 025 2:24 PM EDT documented as of this encounter Care Teams Tax Compliance Agent Relationship Specialty Start Date End Date Cat Amaya MD [address] [place] [address] PCP - General Internal Medicine 09/19/22 Ria Michael Rehabilitation SpecialistChemicals Distiller 10/20/23 documented as of this encounter
--- OUTSIDE RECORDS SUMMARY | 2025-03-12 15:18 | XMS_ITS | Encounter Summary ---
Author Organization [employer] Address [address] [facility] [address] [place] [address] Care Team Providers Care Slubber Tender Name Role Phone Cat Amaya MD Primary Care Pro vider Reason for Visit * Reason Onset Date Comments chart prep 03/10/2025 Encounter Details Date Type Department Care Team ([facility] st Contact Info) Description 03/10/2025 Telephone [facility] [address] [place], [place] [phone] Cat Amaya MD [address] [place], [place] [phone] chart prep Social History Tobacco Use Types [...] Description 05/26/2025 3:30 PM EST Clinical Support [facility] [address] [place] [address] documented as of this encounter Visit Diagnoses Not on filedocumented in this encounter Additional Health Concerns Assessment Noted Time PHQ-9 Depression Total Score: 21 025 2:24 PM EDT documented as of this encounter Care Teams Slubber Tender Relationship Specialty Start Date End Date Cat Amaya MD [address] [place] [address] PCP - General Internal Medicine 09/19/22 Ria Michael Executive CoachMine Exploration Engineer 10/20/23 documented as of this encounter
== END 2025-03-12 12:06 | disposition home or self-care (01) ==
LOC: HO.HHCX 12:05
PROVIDERS: Visit Provider Student in an Organized Health Care Education/Training Program
DX: M89.8X1 Other specified disorders of bone, shoulder (principal)
CPT/HCPCS: 73000

== ENCOUNTER → 2025-03-12 12:06 | Outpatient (BNV) | payer MEDICAID, SELFPAY | PROVIDERS: Visit Provider Radiology Diagnostic Radiology | DX: M19.011 Primary osteoarthritis, right shoulder (principal) | CPT/HCPCS: 73000 ==